=== PATIENT | male | born 1950 | race African-American/Black ===

== ENCOUNTER 2022-06-30 16:17 | Inpatient (IN) ==
--- NOTE | 2022-06-30 16:35 | Emergency Department Note ---
Impression & Plan Mesothelioma ADMIT ED Provider Note HPI: The patient is a 71-year-old gentleman with history of metastatic mesothelioma, on palliative immunotherapy, recent inpatient admission at [facility] for malignant pericardial effusion status post pericardiocentesis and drain removal, presents emergency department today from his nursing facility at [facility] at family request. Patient is a somewhat limited historian on arrival. He mentions he is having pain that he feels is going undertreated at his current facility. On arrival here to the ED, the patient is hemodynamically stable and afebrile. He does exhibit some mild increased work of breathing but he is saturating well on room air. ROS: - Per HPI *Outpatient medications and allergy history reviewed. *Pertinent external medical records reviewed. PE: General: Alert, frail-appearing HEENT: Normocephalic, trachea midline Eyes: Extraocular eye movement is intact, no scleral erythema Pulmonary: Coarse bilateral breath sounds with mild expiratory wheezing Cardio: Regular rate and rhythm GI: Abdomen is soft to palpation : No suprapubic tenderness MSK: No evidence of trauma or malformation of the extremities, no edema Skin: No evidence of rash Neuro: Alert, no focal deficits Psychiatric: Cooperative cafeteria monitor: (As interpreted by myself): - An order was placed for continuous cardiac monitoring - Patient was noted to be in sinus rhythm with a rate of 90 EKG: (As interpreted by myself): Rate: 93 Rhythm: Sinus rhythm Intervals: Within normal limits ST changes: No ST elevation Time: 1659 Interventions provided in ED: -DuoNeb breathing treatment, IV Lasix, IV morphine Differential Diagnosis: Pain and weakness secondary to metastatic mesothelioma, acute bacterial pneumonia, viral upper respiratory infection to include COVID and influenza A amongst other potential pathogens, pericardial effusion, CHF exacerbation, amongst other potential pathologies. Medical Decision Making: The patient is a very frail appearing 71-year-old gentleman who presented to the emergency department from his nursing facility over concern for generalized weakness and progressive decline. Patient's daughter later arrived at the bedside to provide further history, states that the patient was concerned that he was not getting his pain medications on time, states that he felt a penitentiary was "under staffed" he is also developed some worsening cough and shortness of breath. On arrival here to the ED the patient is hemodynamically stable, he does not appear to be in any acute physical distress on my initial assessment but he is frail appearing given his multiple comorbidities. IV was established and lab work obtained, patient was given IV morphine for his chronic pain. Chest x-ray shows evidence of congestive heart failure changes, patient is also noted to have consolidation in the right lung with layering pleural effusion. Patient was given IV Lasix in the ED, also given DuoNeb breathing treatment for his cough and mild increased work of breathing. He did not have any true hypoxia here in the ED but was placed on nasal cannula oxygen as he did have some desaturations to 90% at times on room air. On arrival here to the ED his blood pressure is stable, he is not tachycardic, low suspicion for cardiac tamponade currently as he does not have clinical evidence of this on my exam or with his vital signs. Patient's lab work shows baseline anemia, troponin is negative, COVID-19 testing did return positive. This is likely playing a role in the patient's cough and shortness of breath. I discussed the above findings with the patient's daughter at the bedside, she states she would not like him to return to [facility], given his issues today I feel he would benefit from medical admission and determination can be made about placement at a different facility following discharge. Patient's daughter is in agreement to this plan. Case was discussed with the on-call hospitalist for [facility], Dr. Dunbar, and patient was placed for admission in stable condition. Consultants: Hospitalist service, Dr. Dunbar Disposition discussion held by myself with: Patient and his daughter at the bedside Diagnosis: 1. Dyspnea, acute 2. Acute on chronic pain 3. Metastatic mesothelioma 4. Anemia, chronic 5. Congestive heart failure with elevated BNP, acute 6. COVID-19 infection, acute Disposition: Admission Jack Neff DO Emergency Medicine Past Med/Surg History Social History Smoking Status: Never smoker Preferred Language: Maltese Feels Safe at Home: Yes Allergies Allergies Allergy/AdvReac Type Severity Reaction Status Date / Time No Known Allergies Allergy Unverified 06/30/22 19:15 Home Meds Home Medications Medication Instructions Recorded Confirmed albuterol sulfate 90 mcg/actuation 2 puff inhalation 6XD PRN 06/30/22 06/30/22 aerosol inhaler (Ventolin HFA) Shortness Of Breath Or Wheezing cholecalciferol (vitamin D3) 125 125 mcg PO QAM 06/30/22 06/30/22 mcg (5,000 unit) capsule cyanocobalamin (vitamin B-12) 1,000 mcg PO QAM 06/30/22 06/30/22 1,000 mcg tablet folic acid 1 mg tablet 1 mg PO QAM 06/30/22 06/30/22 guaifenesin 600 mg tablet, 600 mg PO Q12H 06/30/22 06/30/22 extended release 12 hr lactulose 10 gram/15 mL oral 15 ml PO BID 06/30/22 06/30/22 solution levothyroxine 100 mcg tablet 100 mcg PO DAILYBB 06/30/22 06/30/22 mirtazapine 15 mg tablet 15 mg PO HS 06/30/22 06/30/22 multivitamin 1 tab PO QAM 06/30/22 06/30/22 naloxone 4 mg/actuation nasal spray 1 spray intranasal .UD PRN Opioid 06/30/22 06/30/22 Overdose ondansetron 8 mg disintegrating 8 mg PO Q8H PRN Nausea 06/30/22 06/30/22 tablet oxycodone 10 mg tablet 10 mg PO Q4H PRN Pain 06/30/22 06/30/22 polyethylene glycol 3350 17 17 g PO DAILY PRN Constipation 06/30/22 06/30/22 gram/dose oral powder sennosides 8.6 mg tablet 8.6 mg PO HS 06/30/22 06/30/22 sennosides 8.6 mg-docusate sodium 1 tab PO QAM 06/30/22 06/30/22 50 mg tablet (Senna with Docusate Sodium) tamsulosin 0.4 mg capsule 0.4 mg PO QAM 06/30/22 06/30/22 torsemide 10 mg tablet 10 mg PO QAM 06/30/22 06/30/22 Results & Data (ED) Vital Signs Vital Signs - 24 hr 06/30/22 16:17 06/30/22 16:35 06/30/22 16:35 Temperature 36.6 C Temperature Source Oral Pulse Rate 88 89 89 Pulse Rate [Apical] Pulse Rate from SpO2 Sensor Pulse Rhythm Regular Respiratory Rate 19 19 Respiratory Effort / Characteristics Non-Labored Respiratory Depth Normal Respiratory Pattern Regular Blood Pressure 103/82 Blood Pressure [Left Arm] Blood Pressure Mean 89 Blood Pressure Mean [Left Arm] Pulse Oximetry 93 93 Oxygen Delivery Method Room Air Room Air Oxygen Flow Rate Sepsis Recent Fever Within 48 Hours No Sepsis New/Unexplained Change in Mental Status N/A Sepsis Action Taken by Nursing No Action Required 06/30/22 17:16 06/30/22 17:30 06/30/22 18:00 Temperature Temperature Source Pulse Rate 83 82 84 Pulse Rate [Apical] Pulse Rate from SpO2 Sensor 84 81 82 Pulse Rhythm Respiratory Rate 22 20 19 Respiratory Effort / Characteristics Respiratory Depth Respiratory Pattern Blood Pressure 99/74 L 103/79 113/86 Blood Pressure [Left Arm] Blood Pressure Mean 82 87 95 Blood Pressure Mean [Left Arm] Pulse Oximetry 90 90 100 Oxygen Delivery Method Oxygen Flow Rate Sepsis Recent Fever Within 48 Hours Sepsis New/Unexplained Change in Mental Status Sepsis Action Taken by Nursing 06/30/22 18:30 06/30/22 19:30 06/30/22 20:38 Temperature Temperature Source Pulse Rate 88 88 Pulse Rate [Apical] 86 Pulse Rate from SpO2 Sensor Pulse Rhythm Respiratory Rate 21 15 Respiratory Effort / Characteristics Respiratory Depth Respiratory Pattern Blood Pressure 105/76 Blood Pressure [Left Arm] 96/70 L Blood Pressure Mean 85 Blood Pressure Mean [Left Arm] 78 Pulse Oximetry 100 Oxygen Delivery Method Nebulizer Oxygen Flow Rate 6 Sepsis Recent Fever Within 48 Hours Sepsis New/Unexplained Change in Mental Status Sepsis Action Taken by Nursing 06/30/22 21:00 Temperature Temperature Source Pulse Rate Pulse Rate [Apical] 86 Pulse Rate from SpO2 Sensor Pulse Rhythm Respiratory Rate 24 Respiratory Effort / Characteristics Respiratory Depth Respiratory Pattern Blood Pressure Blood Pressure [Left Arm] 101/79 Blood Pressure Mean Blood Pressure Mean [Left Arm] 86 Pulse Oximetry 98 Oxygen Delivery Method Nasal Cannula Oxygen Flow Rate 2 Sepsis Recent Fever Within 48 Hours Sepsis New/Unexplained Change in Mental Status Sepsis Action Taken by Nursing Laboratory Data 06/30/22 16:56 06/30/22 16:56 Lab Results 06/30/22 06/30/22 06/30/22 Range/Units 16:56 16:56 17:02 WBC 6.59 (4.8-10.8) K/ul RBC 3.41 L (4.70-6.10) M/uL Hgb 7.5 L (14.0-18.0) g/dl Hct 26.6 L (42.0-52.0) % MCV 78.0 L (80.0-100.0) fL MCH 22.0 L (25.0-34.0) pg MCHC 28.2 L (32.0-36.0) g/dL RDW Std Deviation 53.2 H (36.4-46.3) fL RDW Coeff of Julee 18.9 H (11.5-14.5) % Plt Count 137 (130-400) K/uL MPV 9.0 L (9.4-12.4) fL Immature Gran % (Auto) 1.1 % Neut % (Auto) 74.9 % Lymph % (Auto) 13.1 % Winn % (Auto) 9.7 % Eos % (Auto) 0.9 % Baso % (Auto) 0.3 % Neut # (Auto) 4.94 (1.40-6.50) K/uL Lymph # (Auto) 0.86 L (1.2-3.4) K/uL Winn # (Auto) 0.64 H (0.11-0.59) K/uL Eos # (Auto) 0.06 (0-0.50) K/uL Baso # (Auto) 0.02 (0-0.2) K/uL Immature Gran # (Auto) 0.07 (0.01-0.20) K/uL Hypochromasia Present Sodium 141 (136-145) mmol/L Potassium 5.1 (3.5-5.1) mmol/L Chloride 105 (98-107) mmol/L Carbon Dioxide 33 H (21-32) mmol/L Anion Gap 3 (3-11) BUN 19 (6-23) mg/dl Creatinine 1.12 (0.6-1.4) mg/dl Est Cr Clr Drug Dosing 71.0 ml/min Est GFR ( Amer) 76.7 ml/min Est GFR (Non-Af Amer) 66.2 ml/min BUN/Creatinine Ratio 17.0 (10-20) Glucose 82 (70-99(Fasting)) mg/dl Calcium 8.1 L (8.6-10.3) mg/dl Total Bilirubin 0.2 (0.2-1.0) mg/dl AST 10 L (13-39) U/L ALT 6 L (7-52) U/L Alkaline Phosphatase 82 (34-104) U/L Troponin I High Sens 8.3 (0-20) pg/ml B-Natriuretic Peptide (0-100) pg/ml Total Protein 5.7 L (6.0-8.3) gm/dl Albumin 2.3 L (3.4-5.0) gm/dl Globulin 3.4 (2.5-4.0) gm/dl Albumin/Globulin Ratio 0.7 L (0.9-2) Lipase 4 L (11-82) U/L SARS-CoV-2 (PCR) (Negative) Influenza Type A (PCR) (Neg) Influenza Type B (PCR) (Neg) RSV (RT-PCR) (Neg) SARS-CoV-2, RNA, NAAT NEGATIVE (NEGATIVE) 06/30/22 06/30/22 Range/Units 19:39 20:09 WBC (4.8-10.8) K/ul RBC (4.70-6.10) M/uL Hgb (14.0-18.0) g/dl Hct (42.0-52.0) % MCV (80.0-100.0) fL MCH (25.0-34.0) pg MCHC (32.0-36.0) g/dL RDW Std Deviation (36.4-46.3) fL RDW Coeff of Julee (11.5-14.5) % Plt Count (130-400) K/uL MPV (9.4-12.4) fL Immature Gran % (Auto) % Neut % (Auto) % Lymph % (Auto) % Winn % (Auto) % Eos % (Auto) % Baso % (Auto) % Neut # (Auto) (1.40-6.50) K/uL Lymph # (Auto) (1.2-3.4) K/uL Winn # (Auto) (0.11-0.59) K/uL Eos # (Auto) (0-0.50) K/uL Baso # (Auto) (0-0.2) K/uL Immature Gran # (Auto) (0.01-0.20) K/uL Hypochromasia Sodium (136-145) mmol/L Potassium (3.5-5.1) mmol/L Chloride (98-107) mmol/L Carbon Dioxide (21-32) mmol/L Anion Gap (3-11) BUN (6-23) mg/dl Creatinine (0.6-1.4) mg/dl Est Cr Clr Drug Dosing ml/min Est GFR ( Amer) ml/min Est GFR (Non-Af Amer) ml/min BUN/Creatinine Ratio (10-20) Glucose (70-99(Fasting)) mg/dl Calcium (8.6-10.3) mg/dl Total Bilirubin (0.2-1.0) mg/dl AST (13-39) U/L ALT (7-52) U/L Alkaline Phosphatase (34-104) U/L Troponin I High Sens (0-20) pg/ml B-Natriuretic Peptide 530 H (0-100) pg/ml Total Protein (6.0-8.3) gm/dl Albumin (3.4-5.0) gm/dl Globulin (2.5-4.0) gm/dl Albumin/Globulin Ratio (0.9-2) Lipase (11-82) U/L SARS-CoV-2 (PCR) POSITIVE A* (Negative) Influenza Type A (PCR) Negative (Neg) Influenza Type B (PCR) Negative (Neg) RSV (RT-PCR) Negative (Neg) SARS-CoV-2, RNA, NAAT (NEGATIVE) Administered Medications Discontinued Medications Albuterol (Albut/Ipratrop 3mg/0.5mg Neb 3 Ml Vial) 3 ml NEB NOW STA; Protocol Stop: 06/30/22 19:05 Last Admin: 06/30/22 19:09 Dose: 3 ml Documented By: MAUREEN Furosemide (Furosemide 40 Mg/4 Ml Vial) 40 mg IV ONE ONE Stop: 06/30/22 19:06 Last Admin: 06/30/22 19:13 Dose: 40 mg Documented By: MAUREEN Sodium Chloride (Nss) 500 mls @ 999 mls/hr IV .Q31M ONE Stop: 06/30/22 17:21 Last Infusion: 06/30/22 17:47 Dose: 0 mls/hr Documented By: Admin: 06/30/22 17:08 Dose: 999 mls/hr Documented By: GRICELDA Morphine Sulfate (Morphine Sulfate 4 Mg/Ml 1 Ml Carp\\Vial) 4 mg IV NOW STA Stop: 06/30/22 16:52 Last Admin: 06/30/22 17:08 Dose: 4 mg Documented By: GRICELDA Oxycodone HCl (Oxycodone Hcl Ir 5 Mg Tab (Immediate Release)) 5 mg PO NOW STA Stop: 06/30/22 20:50 Last Admin: 06/30/22 21:03 Dose: 5 mg Documented By: JADEW Imaging Data Radiologist's Impression: Chest X-Ray 06/30/22 16:35 SINGLE VIEW CHEST CLINICAL HISTORY: Atypical chest pain. FINDINGS: 2 AP, portable, upright chest radiographs are obtained. No prior studies are available for comparison at the time of dictation. The examination is degraded by portable technique and patient rotation. A right internal jugular central venous infusion port is in place. The heart appears enlarged but is partially obscured. There is pulmonary vascular congestion. There is a layering right pleural effusion which tracks to the right apex. Atelectasis/consolidation is seen throughout the right lung. A small pleural effusion is seen on the left. No pneumothorax is seen. The skeletal structures are osteopenic. The bony thorax is grossly intact. Advanced arthritic change is seen in the shoulders. IMPRESSION: 1. Cardiomegaly with evidence of congestive failure. 2. Large layering right pleural effusion which tracks to the apex. Atelectasis/consolidation is seen throughout the right lung. 3. A small pleural effusion is seen on the left ACT 112: Negative or not required by law. Electronically signed by: Shane Pena M.D. 06/30/2022 5:11 PM Discharge Plan Visit Data Chief Complaint: Illness Stated Complaint: FAMILY WANTED PT TAKEN TO HOSPITAL ED Provider: Jack Neff Discharge Problem: Mesothelioma Patient Disposition: Admitted As Inpatient Discharge Instructions Interventions: ED Discharge Assessment Last Done: 06/30/22 21:14 Forms Stand Alone Forms: [facility] Prescriptions Prescriptions: No Action cholecalciferol (vitamin D3) 125 mcg (5,000 unit) Capsule 125 mcg PO QAM folic acid 1 mg tablet 1 mg PO QAM levothyroxine 100 mcg Tablet 100 mcg PO DAILYBB mirtazapine 15 mg Tablet 15 mg PO HS multivitamin [Multiple Vitamin] Tablet 1 tab PO QAM sennosides-docusate sodium [Senna with Docusate Sodium] 8.6-50 mg Tablet 1 tab PO QAM sennosides 8.6 mg Tablet 8.6 mg PO HS tamsulosin 0.4 mg Capsule 0.4 mg PO QAM torsemide 10 mg Tablet 10 mg PO QAM cyanocobalamin (vitamin B-12) 1,000 mcg Tablet 1,000 mcg PO QAM guaifenesin 600 mg Tablet Extended Release 12hr 600 mg PO Q12H lactulose 10 gram/15 mL Solution 15 ml PO BID naloxone 4 mg/actuation Melissa,Non-Aerosol 1 spray INTRANASAL .UD PRN (Reason: Opioid Overdose) ondansetron 8 mg Tablet,Disintegrating 8 mg PO Q8H PRN (Reason: Nausea) oxycodone 10 mg Tablet 10 mg PO Q4H PRN (Reason: Pain) polyethylene glycol 3350 17 gram/dose Powder 17 g PO DAILY PRN (Reason: Constipation) albuterol sulfate [Ventolin HFA] 90 mcg/actuation Hfa Aerosol Inhaler 2 puff INHALATION 6XD PRN (Reason: Shortness Of Breath Or Wheezing) Referrals Referrals: Sandi Jon [Primary Care Provider] -
[2022-06-30] MEDS ORDERED: MoRPHine SULFATE 4 MG/ML 1 ML CARP\\VIAL IV STA (16:51)
[2022-06-30] MEDS ORDERED: SODIUM CHLORIDE 0.9% 500 ML IV ONE (16:51)
--- NOTE | 2022-06-30 17:12 | XRay Report ---
SINGLE VIEW CHEST CLINICAL HISTORY: Atypical chest pain. FINDINGS: 2 AP, portable, upright chest radiographs are obtained. No prior studies are available for comparison at the time of dictation. The examination is degraded by portable technique and patient ro tation. A right internal jugular central venous infusion port is in place. The heart appears enlarge d but is partially obscured. There is pulmonary vascular congestion. There is a layering right pleura l effusion which tracks to the right apex. Atelectasis/consolidation is seen throughout the right jenise g. A small pleural effusion is seen on the left. No pneumothorax is seen. The skeletal structures ar e osteopenic. The bony thorax is grossly intact. Advanced arthritic change is seen in the shoulders. IMPRESSION: 1. Cardiomegaly with evidence of congestive failure. 2. Large layering right pleural effusion which tracks to the apex. Atelectasis/consolidation is seen throughout the right lung. 3. A small pleural effusion is seen on the left ACT 112: Negative or not required by law. Electronically signed by: Shane Pena M.D. 06/30/2022 5:11 PM
[2022-06-30 17:36] LABS: Albumin Globulin Ratio 0.7 (0.9-2); Albumin Level 2.3 gm/dl (3.4-5.0); Bilirubin,Total 0.2 mg/dl (0.2-1.0); Calcium 8.1 mg/dl (8.6-10.3); Est GFR (African American) 76.7 ml/min; Est GFR (Non-African American) 66.2 ml/min; Globulin 3.4 gm/dl (2.5-4.0); Potassium 5.1 mmol/L (3.5-5.1); Total Protein 5.7 gm/dl (6.0-8.3)
[2022-06-30 17:38] LABS: Basophils # (auto) 0.02 K/uL (0-0.2); Basophils % (auto) 0.3 %; Eosinophils # (auto) 0.06 K/uL (0-0.50); Eosinophils % (auto) 0.9 %; Hematocrit (blood only) 26.6 % (42.0-52.0); Hemoglobin 7.5 g/dl (14.0-18.0); Hypochromasia Present; Immature Granulocytes # (auto) 0.07 K/uL (0.01-0.20); Immature Granulocytes % (auto) 1.1 %; Lymphocytes # (auto) 0.86 K/uL (1.2-3.4); Lymphocytes % (auto) 13.1 %; Mean Corpuscular Hgb Conc 28.2 g/dL (32.0-36.0); Monocytes # (auto) 0.64 K/uL (0.11-0.59); Monocytes % (auto) 9.7 %; Neutrophils # (auto) 4.94 K/uL (1.40-6.50); Neutrophils % (auto) 74.9 %; Platelet Count 137 K/uL (130-400); RDW Coefficient of Variation 18.9 % (11.5-14.5); RDW Standard Deviation 53.2 fL (36.4-46.3); Red Blood Count 3.41 M/uL (4.70-6.10); White Blood Count 6.59 K/ul (4.8-10.8)
[2022-06-30 17:43] LABS: Troponin I High Sensitivity 8.3 pg/ml (0-20)
[2022-06-30] MEDS ORDERED: ALBUT/IPRATROP 3MG/0.5MG NEB 3 ML VIAL NEB STA (19:04)
[2022-06-30] MEDS ORDERED: FUROSEMIDE 40 MG/4 ML VIAL IV ONE (19:05)
[2022-06-30 20:21] LABS: Influenza A virus by PCR Negative (Neg); Influenza B virus by PCR Negative (Neg); RSV by PCR Negative (Neg)
[2022-06-30 20:30] LABS: SARS CoV2 RNA(COVID-19) Ceph POSITIVE (Negative)
[2022-06-30] MEDS ORDERED: oxyCODONE HCL IR 5 MG TAB (IMMEDIATE RELEASE) PO STA (20:49)
[2022-06-30] MEDS ORDERED: ALBUTEROL HFA 8 GM INHALER INH PRN (21:49)
[2022-06-30] MEDS ORDERED: NALOXONE NASAL SPRAY 4 MG ER HOMEPACK PRN (21:49)
[2022-06-30] MEDS ORDERED: NITROGLYCERIN SL 0.4 MG/TAB TAB SL PRN (21:49)
[2022-06-30] MEDS ORDERED: ALBUT/IPRATROP 3MG/0.5MG NEB 3 ML VIAL NEB PRN (21:49)
[2022-06-30] MEDS ORDERED: POLYETHYLENE (MIRALAX) 17 GM PACK PO PRN ×2 (21:49)
[2022-06-30] MEDS ORDERED: PIPERACILLIN/TAZOBACTAM 4.5 GM (over 30 mins) IV ONE (22:30)
[2022-06-30] MEDS: guaiFENesin 600 MG TABCR PO SCH (22:50)
[2022-06-30] MEDS: MIRTAZAPINE TAB 15 MG TAB PO SCH (22:51)
[2022-06-30] MEDS: LACTULOSE SYRUP 10 GM/15 ML BTL 960 ML PO SCH (22:51)
[2022-06-30] MEDS: SENNA 8.6 MG TAB PO SCH (22:52)
[2022-06-30] MEDS: ENOXAPARIN INJ 40 MG/0.4 ML SYR SQ SCH (22:52)
--- NOTE | 2022-06-30 23:31 | CT Scan Report ---
Exam(s): CT CHEST Without Contrast EXAM: CT Chest Without Intravenous Contrast CLINICAL HISTORY: Reason for exam: pleural effusion, pericardial effusion, infiltrates. TECHNIQUE: Axial computed tomography images of the chest without intravenous contrast. CTDI is 28.61 mGy and DLP is 1075.84 mGy-cm. Automated exposure control was utilized for the study. A dose lowering technique was utilized adhering to the principles of ALARA. COMPARISON: Chest x-ray from June 30, 2022 FINDINGS: Lungs: There are multiple scattered pulmonary nodules in the left lung measuring up to 9 mm suggesting metastatic neoplasm. Pleural space: There is diffuse pleural thickening throughout the right hemithorax and consolidation of the right mid to lower lung. There is interstitial infiltrate throughout the remaining right upper lung. Consider neoplasm. There is a small to moderate left pleural effusion layering 5 cm dependently mild adjacent left basilar atelectasis. No pneumothorax. Heart: The heart is mildly enlarged. There is a trace pericardial effusion. No significant coronary artery calcifications. Bones/joints: Moderate degenerative changes in both shoulders. Moderate multilevel degenerative changes are seen throughout the spine. No acute fracture or destructive bone lesion is identified. No dislocation. Soft tissues: There is diffuse anasarca over the torso. Vasculature: The thoracic aorta is mildly calcified but nondilated. This is a noncontrast study. Lymph nodes: Unremarkable. No enlarged lymph nodes. Tubes, lines and devices: There is a Port-A-Cath on the right with the line running to the superior vena cava. IMPRESSION: 1. There is diffuse pleural thickening throughout the right hemithorax and consolidation of the right mid to lower lung. There is interstitial infiltrate throughout the remaining right upper lung. Consider neoplasm. 2. There are multiple scattered pulmonary nodules in the left lung measuring up to 9 mm suggesting metastatic neoplasm. 3. There is a small to moderate left pleural effusion layering 5 cm dependently mild adjacent left basilar atelectasis. 4. Mild cardiomegaly and diffuse anasarca. Some component of CHF is suspected. Electronically signed by: Alex Jimenez MD 06/30/22 23:30 PM
[2022-06-30] MEDS: DOXYCYCLINE HYCLATE 100 MG in DEXTROSE 5% 100 ML IV SCH (23:59)
[2022-07-01] MEDS: PIPERACILLIN/TAZOBACTAM 4.5 GM in DEXTROSE 5% 100 ML IV SCH ×3 (05:13→20:42)
[2022-07-01] MEDS: LEVOTHYROXINE SODIUM 100 MCG TABLET PO SCH (05:39)
[2022-07-01 06:12] LABS: Hematocrit (blood only) 24.4 % (42.0-52.0); Hemoglobin 6.7 g/dl (14.0-18.0); Mean Corpuscular Hemoglobin 21.9 pg (25.0-34.0); Mean Corpuscular Hgb Conc 27.5 g/dL (32.0-36.0); Mean Corpuscular Volume 79.7 fL (80.0-100.0); Mean Platelet Volume 9.4 fL (9.4-12.4); Platelet Count 128 K/uL (130-400); RDW Coefficient of Variation 18.9 % (11.5-14.5); RDW Standard Deviation 55.1 fL (36.4-46.3); Red Blood Count 3.06 M/uL (4.70-6.10); White Blood Count 5.56 K/ul (4.8-10.8)
[2022-07-01 06:22] LABS: BUN Creatinine Ratio 17.2 (10-20); Calcium 7.6 mg/dl (8.6-10.3); Creatinine Clr Calc Pharmacy 68.6 ml/min; Est GFR (African American) 73.5 ml/min; Est GFR (Non-African American) 63.5 ml/min; Magnesium 1.7 mg/dl (1.7-2.4); Potassium 4.5 mmol/L (3.5-5.1)
[2022-07-01 06:38] LABS: Thyroid Stimulating Hormone 19.384 uIu/ml (0.300-4.500)
[2022-07-01 06:48] LABS: Hematocrit (blood only) 25.2 % (42.0-52.0); Hemoglobin 7.1 g/dl (14.0-18.0)
[2022-07-01 06:49] LABS: Basophils # (auto) 0.02 K/uL (0-0.2); Basophils % (auto) 0.4 %; Eosinophils # (auto) 0.08 K/uL (0-0.50); Eosinophils % (auto) 1.4 %; Hypochromasia Present; Immature Granulocytes # (auto) 0.07 K/uL (0.01-0.20); Immature Granulocytes % (auto) 1.3 %; Lymphocytes # (auto) 0.79 K/uL (1.2-3.4); Lymphocytes % (auto) 14.2 %; Monocytes # (auto) 0.51 K/uL (0.11-0.59); Monocytes % (auto) 9.2 %; Neutrophils # (auto) 4.09 K/uL (1.40-6.50); Neutrophils % (auto) 73.5 %
[2022-07-01] MEDS: ALBUT/IPRATROP 3MG/0.5MG NEB 3 ML VIAL NEB SCH ×4 (07:04→19:18)
[2022-07-01 07:13] LABS: T4 Free Thyroxine 0.75 ng/dl (0.61-1.60)
[2022-07-01 07:39] LABS: Base Excess ABG 5.6 mEq/L (-9-1.8); HCO3 ABG 33 mmol/L (19-24); Oxygen Saturation ABG 94.6 % (90-95); PCO2 ABG 65 mmHg (35-46); PO2 ABG 61 mmHg (80-95); pH ABG 7.31 (7.35-7.45)
[2022-07-01 07:40] LABS: Allen Test Pos (Pos)
--- NOTE | 2022-07-01 08:32 | Pulmonary Consultation ---
Date of Consultation July 01, 2022 Assessment & Plan (1) Mesothelioma: (2) Failure to thrive in adult: (3) Anemia: (4) Acute hypercapnic respiratory failure: Plan Impression: 71-year-old male with reported history of metastatic mesothelioma. Again I have no records available to substantiate this but his CT scan does appear consistent with this diagnosis. It is unclear why he was actually brought to the emergency room and admitted here. Apparently according to the bedside nurse, the family was unhappy with the care that he was receiving and wanted him admitted to the facility to work on placement at an alternative institution. His CT scan shows diffuse pleural thickening. He is not having respiratory distress or compromise and there is no indication for thoracentesis currently. Recommendations: 1. Pleural effusion: The effusion on the left is small. The only indication for repeat sampling would be for palliative/symptom control. As the patient is asymptomatic, there is no indication for repeat pleural procedures currently. 2. Advanced mesothelioma. Again we do not have any records available on this patient. As his auto service writer and oncologist are at [place], consideration for transfer to [facility] where he would be closer to his establish care team may be appropriate and is deferred to the patient's primary care provider. Reportedly he is receiving "palliative chemotherapy". I am unclear what this entails and the patient is unable to offer any details as to what therapy he is receiving currently. This is a uniformly fatal disease with life expectancy even with chemotherapy less than 24 months. 3. I attempted to discuss advanced directives with the patient but he does not appear to be in an appropriate state of mind to be able to have the discussion. I would strongly discourage ACLS CPR intubation or mechanical ventilation in this patient as it will not alter his cancer prognosis. Strongly recommend palliative care consultation. Family should be included in end-of-life discussions. 4. Hypercarbic respiratory failure: Secondary to restriction due to the lung encasement from tumor. Again this is not reversible. I do not think noninvasive positive pressure ventilation has a role in this patient and again would strongly recommend defining goals of therapy. 5. Would recommend continued symptom management. 6. The patient's been started on antibiotics. Given his extensive lung disease, his imaging studies make it impossible to evaluate for infection. Recommend sputum culture, procalcitonin, and clinical follow-up. If cultures have been obtained previously, these may be helpful. 7. COVID positive test on admission. Again the patient's imaging studies are impossible to interpret with regards to infection. He is not hypoxemic so would not recommend remdesivir, dexamethasone, or other adjuvant therapies. Continue supportive care. If the patient is to remain in our system, would strongly encourage getting copies of the patient's medical records scanned into our system. Unfortunately, I think I have little to offer this patient at this point in time other than recommendations for palliative care History of Present Illness Attending Physician: Aaron Judd MD History of Present Illness Asked by hospitalist to evaluate this patient with mesothelioma. History is obtained from review of the electronic medical record which is very limited as there is no H&P in the system. He has not been seen in our system and we do not have any prior clinical notes. The patient is confused and cannot really tell me why he is here. Patient is a 71-year-old male with a history of diffuse metastatic mesothelioma who is on palliative therapy status post recent stay at [place] for pericardiocentesis given malignant effusion. He been at [facility] and apparently family requested that he come to the hospital. According to the ER notes, the patient was complaining of pain which was inadequately addressed at his outside facility. He had a CT scan which was grossly abnormal consistent with the patient's history of metastatic mesothelioma. He was also found to be positive for COVID. Pulmonary was consulted for additional evaluation management. Patient does have a coarse cough which is chronic for him. He is not producing any phlegm. He denies fevers chills or night sweats. History from the patient is severely limited. Patient relates that his auto service writer and oncologist are [place]. He is never been seen in the [facility] system previously. It is unclear why he was brought here. All of his care has been performed through [facility] Allergies Allergy/AdvReac Type Severity Reaction Status Date / Time No Known Allergies Allergy Unverified 06/30/22 19:15 Home Medications Medication Instructions Recorded Confirmed Type albuterol sulfate 90 mcg/actuation 2 puff inhalation 6XD PRN 06/30/22 06/30/22 History aerosol inhaler (Ventolin HFA) Shortness Of Breath Or Wheezing cholecalciferol (vitamin D3) 125 125 mcg PO QAM 06/30/22 06/30/22 History mcg (5,000 unit) capsule cyanocobalamin (vitamin B-12) 1,000 mcg PO QAM 06/30/22 06/30/22 History 1,000 mcg tablet folic acid 1 mg tablet 1 mg PO QAM 06/30/22 06/30/22 History guaifenesin 600 mg tablet, 600 mg PO Q12H 06/30/22 06/30/22 History extended release 12 hr lactulose 10 gram/15 mL oral 15 ml PO BID 06/30/22 06/30/22 History solution levothyroxine 100 mcg tablet 100 mcg PO DAILYBB 06/30/22 06/30/22 History mirtazapine 15 mg tablet 15 mg PO HS 06/30/22 06/30/22 History multivitamin 1 tab PO QAM 06/30/22 06/30/22 History naloxone 4 mg/actuation nasal spray 1 spray intranasal .UD PRN Opioid 06/30/22 06/30/22 History Overdose ondansetron 8 mg disintegrating 8 mg PO Q8H PRN Nausea 06/30/22 06/30/22 History tablet oxycodone 10 mg tablet 10 mg PO Q4H PRN Pain 06/30/22 06/30/22 History polyethylene glycol 3350 17 17 g PO DAILY PRN Constipation 06/30/22 06/30/22 History gram/dose oral powder sennosides 8.6 mg tablet 8.6 mg PO HS 06/30/22 06/30/22 History sennosides 8.6 mg-docusate sodium 1 tab PO QAM 06/30/22 06/30/22 History 50 mg tablet (Senna with Docusate Sodium) tamsulosin 0.4 mg capsule 0.4 mg PO QAM 06/30/22 06/30/22 History torsemide 10 mg tablet 10 mg PO QAM 06/30/22 06/30/22 History Patient History Social History Smoking Status: Never smoker Hx Alcohol Use: No Hx Substance Use: No Preferred Language: Portuguese Communication Ability: Effective Vp Training Required: No Beliefs That Will Affect Care: None Current Living Situation: Personal Care Facility Feels Safe at Home: Yes Safety Concerns: Feels Safe At This Time Assistive Devices: Cane, Oxygen - Continuous and Walker Review of Systems Review of Systems: Other Unreliable from the patient. Please refer to the ER notes Physical Exam Constitutional: + frail appearing; + not well nourished and no acute distress Neck: trachea midline, no thyromegaly Respiratory: no respiratory distress, no labored breathing and not tachypneic Auscultation: + rhonchi Cardiovascular: RRR, no murmur, no edema Gastrointestinal (Abdomen): normal bowel sounds, soft, nontender, no hepatosplenomegaly Musculoskeletal: Extremities: extremities normal to inspection Skin: no rashes, warm and dry Neurologic: Nonfocal exam Lymphatic: no cervical lymphadenopathy Results & Data Results & Data Vital Signs (Past 12 Hours) Vital Signs Temp Pulse Pulse Resp BP BP Pulse Ox 07/01/22 08:00 07/01/22 08:00 07/01/22 07:43 36.3 C L 88 20 118/76 90 07/01/22 07:00 76 07/01/22 07:04 79 20 98 07/01/22 03:23 36.2 C L 85 20 103/63 94 06/30/22 23:55 88 06/30/22 23:00 36.6 C 84 18 91/57 L 100 06/30/22 21:54 06/30/22 21:46 36.4 C L 87 22 110/80 94 06/30/22 21:00 86 24 101/79 98 06/30/22 20:38 88 Pulse Ox O2 Del Method O2 Del Method O2 Flow Rate O2 Flow Rate 07/01/22 08:00 Nasal Cannula 2 07/01/22 08:00 95 Nasal Cannula 2 07/01/22 07:43 Room Air 07/01/22 07:00 07/01/22 07:04 Nasal Cannula 2 07/01/22 03:23 Nasal Cannula 2 06/30/22 23:55 06/30/22 23:00 Nasal Cannula 2 06/30/22 21:54 Nasal Cannula 2 06/30/22 21:46 Nasal Cannula 2 06/30/22 21:00 Nasal Cannula 2 06/30/22 20:38 Critical Care Results & Data Vital Signs (Past 12 Hours) Vital Signs Temp Pulse Pulse Resp BP BP Pulse Ox 07/01/22 08:00 07/01/22 08:00 07/01/22 07:43 36.3 C L 88 20 118/76 90 07/01/22 07:00 76 04/30/23 07:04 79 20 98 07/01/22 03:23 36.2 C L 85 20 103/63 94 06/30/22 23:55 88 06/30/22 23:00 36.6 C 84 18 91/57 L 100 06/30/22 21:54 06/30/22 21:46 36.4 C L 87 22 110/80 94 06/30/22 21:00 86 24 101/79 98 06/30/22 20:38 88 Pulse Ox O2 Del Method O2 Del Method O2 Flow Rate O2 Flow Rate 07/01/22 08:00 Nasal Cannula 2 07/01/22 08:00 95 Nasal Cannula 2 07/01/22 07:43 Room Air 07/01/22 07:00 07/01/22 07:04 Nasal Cannula 2 07/01/22 03:23 Nasal Cannula 2 06/30/22 23:55 06/30/22 23:00 Nasal Cannula 2 06/30/22 21:54 Nasal Cannula 2 06/30/22 21:46 Nasal Cannula 2 06/30/22 21:00 Nasal Cannula 2 06/30/22 20:38 Lab & Micro Results (Past 24 Hours) RBC 3.06 M/uL (4.70-6.10) L 07/01/22 WBC 5.56 K/ul (4.8-10.8) 07/01/22 Hgb 7.1 g/dl (14.0-18.0) L 07/01/22 Hct 25.2 % (42.0-52.0) L 07/01/22 MCV 79.7 fL (80.0-100.0) L 07/01/22 MCH 21.9 pg (25.0-34.0) L 07/01/22 MCHC 27.5 g/dL (32.0-36.0) L 07/01/22 RDW Standard Deviation 55.1 fL (36.4-46.3) H 07/01/22 RDW Coefficient of Variation 18.9 % (11.5-14.5) H 07/01/22 Plt Count 128 K/uL (130-400) L 07/01/22 MPV 9.4 fL (9.4-12.4) 07/01/22 Neutrophils (%) (Auto) 73.5 % 07/01/22 Lymphocytes (%) (Auto) 14.2 % 07/01/22 Monocytes # (Auto) 0.51 K/uL (0.11-0.59) 07/01/22 Eosinophils # (Auto) 0.08 K/uL (0-0.50) 07/01/22 Immature Granulocyte % (Auto) 1.3 % 07/01/22 Neutrophils # (Auto) 4.09 K/uL (1.40-6.50) 07/01/22 Lymphocytes # (Auto) 0.79 K/uL (1.2-3.4) L 07/01/22 Monocytes # (Auto) 0.51 K/uL (0.11-0.59) 07/01/22 Eosinophils # (Auto) 0.08 K/uL (0-0.50) 07/01/22 Basophils # (Auto) 0.02 K/uL (0-0.2) 07/01/22 Immature Granulocyte # (Auto) 0.07 K/uL (0.01-0.20) 3 Hypochromasia Present 07/01/22 Na 139 mmol/L (136-145) 07/01/22 K 4.5 mmol/L (3.5-5.1) 07/01/22 Cl 104 mmol/L (98-107) 07/01/22 CO2 32 mmol/L (21-32) 07/01/22 Anion Gap 3 (3-11) 07/01/22 BUN 20 mg/dl (6-23) 07/01/22 Creatinine 1.16 mg/dl (0.6-1.4) 07/01/22 Estimated GFR ( Amer) 73.5 ml/min 07/01/22 Estimated GFR (Non-Af Amer) 63.5 ml/min 07/01/22 BUN/Creatinine Ratio 17.2 (10-20) 07/01/22 Glu 80 mg/dl (70-99(Fasting)) 07/01/22 Ca 7.6 mg/dl (8.6-10.3) L 07/01/22 Total Bilirubin 0.2 mg/dl (0.2-1.0) 06/30/22 AST 10 U/L (13-39) L 06/30/22 ALT 6 U/L (7-52) L 06/30/22 Alkaline Phosphatase 82 U/L (34-104) 06/30/22 TP 5.7 gm/dl (6.0-8.3) L 06/30/22 Albumin 2.3 gm/dl (3.4-5.0) L 06/30/22 Globulin 3.4 gm/dl (2.5-4.0) 06/30/22 Albumin/Globulin Ratio 0.7 (0.9-2) L 06/30/22 Mg 1.7 mg/dl (1.7-2.4) 07/01/22 05:30 Calcium Level 7.6 mg/dl (8.6-10.3) L 07/01/22 05:30 Arterial Blood pH 7.31 (7.35-7.45) L 07/01/22 07:31 Arterial Blood Partial Pressure CO2 65 mmHg (35-46) H 07/01/22 07:31 Arterial Blood Partial Pressure O2 61 mmHg (80-95) L 07/01/22 0 7:31 Arterial Blood HCO3 33 mmol/L (19-24) H 07/01/22 07:31 Arterial Blood Base Excess 5.6 mEq/L (-9-1.8) H 07/01/22 07:31 Arterial Blood Oxygen Saturation 94.6 % (90-95) 07/01/22 07:31 Blood Gas Oxygen Given RA 07/01/22 07:31 Caesar Test Pos (Pos) 07/01/22 07:31 Diagnostic Findings (Past 24 Hours) Chest X-Ray 06/30/22 16:35 SINGLE VIEW CHEST CLINICAL HISTORY: Atypical chest pain. FINDINGS: 2 AP, portable, upright chest radiographs are obtained. No prior studies are available for comparison at the time of dictation. The examination is degraded by portable technique and patient rotation. A right internal jugular central venous infusion port is in place. The heart appears enlarged but is partially obscured. There is pulmonary vascular congestion. There is a layering right pleural effusion which tracks to the right apex. Atelectasis/consolidation is seen throughout the right lung. A small pleural effusion is seen on the left. No pneumothorax is seen. The skeletal structures are osteopenic. The bony thorax is grossly intact. Advanced arthritic change is seen in the shoulders. IMPRESSION: 1. Cardiomegaly with evidence of congestive failure. 2. Large layering right pleural effusion which tracks to the apex. Atelectasis/consolidation is seen throughout the right lung. 3. A small pleural effusion is seen on the left ACT 112: Negative or not required by law. Electronically signed by: Shane Pena M.D. 06/30/2022 5:[address] 06/30/22 21:49 Exam(s): CT CHEST Without Contrast EXAM: CT Chest Without Intravenous Contrast CLINICAL HISTORY: Reason for exam: pleural effusion, pericardial effusion, infiltrates. TECHNIQUE: Axial computed tomography images of the chest without intravenous contrast. CTDI is 28.61 mGy and DLP is 1075.84 mGy-cm. Automated exposure control was utilized for the study. A dose lowering technique was utilized adhering to the principles of ALARA. COMPARISON: Chest x-ray from June 30, 2022 FINDINGS: Lungs: There are multiple scattered pulmonary nodules in the left lung measuring up to 9 mm suggesting metastatic neoplasm. Pleural space: There is diffuse pleural thickening throughout the right hemithorax and consolidation of the right mid to lower lung. There is interstitial infiltrate throughout the remaining right upper lung. Consider neoplasm. There is a small to moderate left pleural effusion layering 5 cm dependently mild adjacent left basilar atelectasis. No pneumothorax. Heart: The heart is mildly enlarged. There is a trace pericardial effusion. No significant coronary artery calcifications. Bones/joints: Moderate degenerative changes in both shoulders. Moderate multilevel degenerative changes are seen throughout the spine. No acute fracture or destructive bone lesion is identified. No dislocation. Soft tissues: There is diffuse anasarca over the torso. Vasculature: The thoracic aorta is mildly calcified but nondilated. This is a noncontrast study. Lymph nodes: Unremarkable. No enlarged lymph nodes. Tubes, lines and devices: There is a Port-A-Cath on the right with the line running to the superior vena cava. IMPRESSION: 1. There is diffuse pleural thickening throughout the right hemithorax and consolidation of the right mid to lower lung. There is interstitial infiltrate throughout the remaining right upper lung. Consider neoplasm. 2. There are multiple scattered pulmonary nodules in the left lung measuring up to 9 mm suggesting metastatic neoplasm. 3. There is a small to moderate left pleural effusion layering 5 cm dependently mild adjacent left basilar atelectasis. 4. Mild cardiomegaly and diffuse anasarca. Some component of CHF is suspected. Electronically signed by: Alex Jimenez MD 06/30/22 23:30 PM I & O Totals 24 Hours 06/30/22 07/01/22 07/02/22 06:59 06:59 06:59 Intake Total 730 / 730 Output Total 225 / 225 Balance 505 / 505 Cumulative 06/30/22 16:00 thru 07/01/22 06:00 Intake Total 730 Output Total 225 Balance 505 RT Ventilator Mngmt (Last Documented) Ventilator Ordered Settings Respiratory Rate 20 07/01/22 07:43 Ventilator - PT Measurements Respiratory Rate 20 PG Care Time/CCT Total # of Minutes Spent Total Time Spent with Patient: Total time spent is greater than 50% in coordination of care (as documented) at patient's floor/unit and/or counseling patient: Coding Level of Care Code 16625 INT INP/OBS CARE 75MIN Diagnoses Mesothelioma C45.9 Failure to thrive in adult R62.7 Anemia D64.9 Acute hypercapnic respiratory failure J96.02
[2022-07-01] MEDS: FUROSEMIDE 40 MG/4 ML VIAL IV SCH (09:33)
[2022-07-01] MEDS: MULTIVITAMIN TAB PO SCH (09:34)
[2022-07-01] MEDS: CYANOCOBALAMIN (B-12) 500 MCG TABLET PO SCH (09:34)
[2022-07-01] MEDS: TAMSULOSIN HCL 0.4 MG CAP PO SCH (09:34)
[2022-07-01] MEDS: CHOLECALCIFEROL 5,000 UNITS 125 MCG TAB PO SCH (09:34)
[2022-07-01] MEDS: guaiFENesin 600 MG TABCR PO SCH ×2 (09:34→20:44)
[2022-07-01] MEDS: FOLIC ACID 1 MG TAB PO SCH (09:34)
[2022-07-01] MEDS: DOCUSATE SODIUM/SENNA 50/8.6MG TAB PO SCH (09:34)
[2022-07-01] MEDS: LACTULOSE SYRUP 10 GM/15 ML BTL 960 ML PO SCH ×2 (09:35→20:45)
--- NOTE | 2022-07-01 10:37 | Cardiology Consultation ---
Date of Consultation July 01, 2022 Assessment & Plan (1) Mesothelioma: (2) Acute hypercapnic respiratory failure: - As noted, patient underwent recent pericardiocentesis on 06/07/2022 of the malignant pericardial effusion, with cytology of pericardial fluid consistent with malignant mesothelioma. He likely has bilateral malignant pleural effusions. -Clinically, is difficult to determine if there is a component of volume overload causing him shortness of breath, as his CT chest is markedly abnormal. I think it is reasonable to utilize IV furosemide to try to keep his intake and output at least even while he is on IV antibiotics. -Hemoglobin of 7.1 noted. -Patient had a run of wide-complex tachycardia consistent with nonsustained ventricular tachycardia observed on telemetry at 11:14 AM. Per review of his chart, treatment with a beta-jolene had previously been discontinued dating back to February, due to hypotension, and I do not think it would be soto to resume such medication at this point. The arrhythmia is likely another marker of his poor prognosis. -Unfortunately, palliative care would appear to be the appropriate next step. -Case discussed with Dr. Judd for the purpose of coordination of care. -55 minutes were spent on direct patient care with regards to reviewing previous records, performing a history and physical exam, discussing test results and treatment options with patient, formulating this note, and discussing the case with Dr Judd. History of Present Illness Attending Physician: Aaron Judd MD History of Present Illness Calvin Mayfield is 71 year old male seen in cardiology consultation per the request of Dr Dunbar for the evaluation of congestive heart failure and pericardial disease. Patient apparently presented to the emergency department due to concerns of uncontrolled pain as well as cough and shortness of breath. At the time of my interview with the patient, a coarse cough was noted. He denied other concerns. Per review of his [facility] chart he has a history of metastatic mesothelioma with multiple pulmonary nodules, hepatic metastasis, and peritoneal carcinomatosis. He had a documented positive COVID test on 05/21/2022. He recently presented to [facility] emergency department on 06/06/2022 having had a fall. He was hypotensive with systolic blood pressure in the 70s. He had undergone CT scan for trauma work-up at that time revealing an ongoing pleural effusion and findings of the pericardial effusion. He was transferred to [facility] was felt to have a mixed hypovolemic and cardiogenic shock picture and underwent pericardiocentesis on 06/07/2022 with 420 mL of serosanguineous fluid removed by Dr Orosco of interventional cardiology. Cytology of the pericardial fluid was suggestive of a malignant pericardial effusion with atypical mesothelial cells observed. The pericardial drain was subsequently removed on 06/12/2022 at which time a repeat echocardiogram had revealed no residual pericardial fluid. He had been seen by oncology as well as palliative medicine during his stay at [facility]. Per review of notes he received ipilimumab/nivolumab 1 cycle 1 on 05/01 and had further treatment postponed due to COVID PNA . He was transferred to the [facility] of 06/19/22 with planned follow up with Oncology, Palliative care, cardiology, and urology as he was discharged with an indwelling Bailey catheter. Allergies Allergy/AdvReac Type Severity Reaction Status Date / Time No Known Allergies Allergy Unverified 06/30/22 19:15 Home Medications Medication Instructions Recorded Confirmed Type albuterol sulfate 90 mcg/actuation 2 puff inhalation 6XD PRN 06/30/22 06/30/22 History aerosol inhaler (Ventolin HFA) Shortness Of Breath Or Wheezing cholecalciferol (vitamin D3) 125 125 mcg PO QAM 06/30/22 06/30/22 History mcg (5,000 unit) capsule cyanocobalamin (vitamin B-12) 1,000 mcg PO QAM 06/30/22 06/30/22 History 1,000 mcg tablet folic acid 1 mg tablet 1 mg PO QAM 06/30/22 06/30/22 History guaifenesin 600 mg tablet, 600 mg PO Q12H 06/30/22 06/30/22 History extended release 12 hr lactulose 10 gram/15 mL oral 15 ml PO BID 06/30/22 06/30/22 History solution levothyroxine 100 mcg tablet 100 mcg PO DAILYBB 06/30/22 06/30/22 History mirtazapine 15 mg tablet 15 mg PO HS 06/30/22 06/30/22 History multivitamin 1 tab PO QAM 06/30/22 06/30/22 History naloxone 4 mg/actuation nasal spray 1 spray intranasal .UD PRN Opioid 06/30/22 06/30/22 History Overdose ondansetron 8 mg disintegrating 8 mg PO Q8H PRN Nausea 06/30/22 06/30/22 History tablet oxycodone 10 mg tablet 10 mg PO Q4H PRN Pain 06/30/22 06/30/22 History polyethylene glycol 3350 17 17 g PO DAILY PRN Constipation 06/30/22 06/30/22 History gram/dose oral powder sennosides 8.6 mg tablet 8.6 mg PO HS 06/30/22 06/30/22 History sennosides 8.6 mg-docusate sodium 1 tab PO QAM 06/30/22 06/30/22 History 50 mg tablet (Senna with Docusate Sodium) tamsulosin 0.4 mg capsule 0.4 mg PO QAM 06/30/22 06/30/22 History torsemide 10 mg tablet 10 mg PO QAM 06/30/22 06/30/22 History Patient History Social History Smoking Status: Never smoker Hx Alcohol Use: No Hx Substance Use: No Preferred Language: Djiboutian Communication Ability: Effective [employer] Firer/Fireman Required: No Beliefs That Will Affect Care: None Current Living Situation: Personal Care Facility Feels Safe at Home: Yes Safety Concerns: Feels Safe At This Time Assistive Devices: Glasses and Walker Review of Systems Review of Systems: All systems reviewed & are unremarkable except as noted in HPI & below Physical Exam Constitutional: + ill appearing Respiratory: Auscultation: + diminished lung sounds Cardiovascular: RRR, no murmur, no edema Gastrointestinal (Abdomen): normal bowel sounds, soft, nontender, no hepatosplenomegaly Neurologic: PERRL, EOMI, accommodation nl, no face palsy, no dysarthria Results & Data Vital Signs (Past 12 Hours) Vital Signs Temp Pulse Pulse Resp BP Pulse Ox Pulse Ox 07/01/22 08:00 07/01/22 08:00 95 07/01/22 07:43 36.3 C L 88 20 118/76 90 07/01/22 07:00 76 07/01/22 07:04 79 20 98 07/01/22 03:23 36.2 C L 85 20 103/63 94 06/30/22 23:55 88 06/30/22 23:00 36.6 C 84 18 91/57 L 100 O2 Del Method O2 Del Method O2 Flow Rate O2 Flow Rate 04/30/23 08:00 Nasal Cannula 2 07/01/22 08:00 Nasal Cannula 2 07/01/22 07:43 Room Air 07/01/22 07:00 07/01/22 07:04 Nasal Cannula 2 07/01/22 03:23 Nasal Cannula 2 06/30/22 23:55 06/30/22 23:00 Nasal Cannula 2 Laboratory Results Cardiac Enzymes 06/30/22 06/30/22 07/01/22 Range/Units 16:56 20:09 05:30 AST 10 L (13-39) U/L Troponin I High Sens 8.3 7.1 (0-20) pg/ml B-Natriuretic Peptide 530 H (0-100) pg/ml 07/01/22 Range/Units 10:50 AST (13-39) U/L Troponin I High Sens 7.2 (0-20) pg/ml B-Natriuretic Peptide (0-100) pg/ml Coagulation 06/30/22 Range/Units 20:09 B-Natriuretic Peptide 530 H (0-100) pg/ml CBC 06/30/22 07/01/22 07/01/22 Range/Units 16:56 05:30 06:28 WBC 6.59 5.56 (4.8-10.8) K/ul RBC 3.41 L 3.06 L (4.70-6.10) M/uL Hgb 7.5 L 6.7 L* 7.1 L (14.0-18.0) g/dl Hct 26.6 L 24.4 L 25.2 L (42.0-52.0) % Plt Count 137 128 L (130-400) K/uL Neut # (Auto) 4.94 4.09 (1.40-6.50) K/uL Lymph # (Auto) 0.86 L 0.79 L (1.2-3.4) K/uL Isabela # (Auto) 0.64 H 0.51 (0.11-0.59) K/uL Eos # (Auto) 0.06 0.08 (0-0.50) K/uL Baso # (Auto) 0.02 0.02 (0-0.2) K/uL Comprehensive Metabolic Panel 06/30/22 07/01/22 Range/Units 16:56 05:30 Sodium 141 139 (136-145) mmol/L Potassium 5.1 4.5 (3.5-5.1) mmol/L Chloride 105 104 (98-107) mmol/L Carbon Dioxide 33 H 32 (21-32) mmol/L BUN 19 20 (6-23) mg/dl Creatinine 1.12 1.16 (0.6-1.4) mg/dl Glucose 82 80 (70-99(Fasting)) mg/dl Calcium 8.1 L 7.6 L (8.6-10.3) mg/dl AST 10 L (13-39) U/L ALT 6 L (7-52) U/L Alkaline Phosphatase 82 (34-104) U/L Total Protein 5.7 L (6.0-8.3) gm/dl Albumin 2.3 L (3.4-5.0) gm/dl Intake and Output 06/30/22 07/01/22 07/01/22 22:59 06:59 14:59 Intake Total 500 / 730 230 / 730 120 / 120 Output Total 225 / 225 Balance 500 / 505 5 / 505 120 / 120 Intake: IV 500 / 730 230 / 730 120 / 120 Doxycycline Hyclate 100 mg In 110 / 110 Dextrose 5% 100 ml @ 50 mls/hr IV Q12H [facility] Rx#:[id number] Piperacillin/Tazobactam 4.5 gm 120 / 120 120 / 120 In Dextrose 5% 100 ml @ 30 mls/ hr IV Q8H [facility] Rx#:[id number] Sodium Chloride 0.9% 500 ml @ 500 / 500 999 mls/hr IV .Q31M ONE Rx#: [id number] Oral 0 / 0 Output: Urine 225 / 225 Other: Weight 94.1 kg 95.028 kg Weight Measurement [facility] Diagnostic Findings Echocardiogram performed today 07/02/2027 at [facility] and interpreted independently: Mild concentric left ventricular hypertrophy is present No left ventricular wall motion abnormality noted, with hyperdynamic left ventricular systolic function, LVEF greater than 70%. Grade 1 diastolic dysfunction is noted No significant valvular disease. Aortic root is moderately larger diameter 4.7 cm A small circumferential pericardial effusion is present. There is no echocardiographic evidence of tamponade. A moderate size left pleural effusion is noted. In direct comparison to the most recent study performed at [facility] dated 06/12/2022 no pericardial effusion was present at that time. There is been interval reaccumulation of a small pericardial effusion. EKG performed 06/30/2022: Sinus rhythm at 93 bpm with occasional PVCs, no significant acute repolarization changes. An age-indeterminate anterior infarct cannot be excluded based on poor R wave progression in the precordial leads. Summary of radiology report of chest x-ray performed 06/30/2022: Large right pleural effusion Summary of noncontrast chest CT 06/30/2022: 1. There is diffuse pleural thickening throughout the right hemithorax and consolidation of the right mid to lower lung. There is interstitial infiltrate throughout the remaining right upper lung. Consider neoplasm. 2. There are multiple scattered pulmonary nodules in the left lung measuring up to 9 mm suggesting metastatic neoplasm. 3. There is a small to moderate left pleural effusion layering 5 cm dependently mild adjacent left basilar atelectasis. 4. Mild cardiomegaly and diffuse anasarca. Some component of CHF is suspected.
[2022-07-01] MEDS: DOXYCYCLINE HYCLATE 100 MG in DEXTROSE 5% 100 ML IV SCH (11:15)
--- NOTE | 2022-07-01 11:28 | History and Physical Report ---
DATE OF ADMISSION: 06/30/2022. CHIEF COMPLAINT: Cough and shortness of breath. 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 The patient used to live with the daughter. The patient's daughter says that the patient appeared to have malignant mesothelioma for last 2 years, but in January it was diagnosed and has spread to liver, and in April, he had one immunotherapy, but in May, he had COVID, so currently immunotherapy on hold. History of COPD, but not on home oxygen. It looks like he presented at [facility] on 06/06/2022 with a fall when he struck his head on the right side and on presentation was found to be hypotensive with systolic blood pressure in 70s and tachycardic with heart rate in the 110s. Corrigan-imaging studies were negative for traumatic injuries, but showed increased right-sided pleural effusion and pericardial effusion. At that time, his BNP was 1900, potassium was 5.6, creatinine was 2.2, lactate was 2.7, TSH 49, hemoglobin 7.4, procalcitonin 0.33. He was given about 2.2 liters of fluids, vancomycin, and Zosyn and started on norepinephrine and transferred to [facility] for continuation of care in [place]. He was in , mixed hypovolemic-cardiogenic shock. Underwent pericardiocentesis by cardiology on 06/07/2022. Pericardial drain was removed on 06/12/2022 after ensuring there was no reaccumulation. The pericardial effusion was thought due to malignancy, history of metastatic mesothelioma. The patient also had LEN, was thought to be postobstructive and Bailey catheter was placed. The patient was started on Flomax, was supposed to follow up with urology for a voiding trial. Palliative care saw the patient, seen by oncology and there is plan for outpatient followup for continuation of treatment of malignant mesothelioma. Palliative care saw, the patient goals of care were discussed and the patient wants to be full code and to be treated.His thyroid level was 49 and free T4 was 0.6. At discharge, thyroid dose was doubled to 150, but looks like at [facility] he was getting 100 mcg. The patient was transferred to [facility], looks like on 06/19/2022. As per daughter, his pain was not well controlled there and she was not happy with the care and she was wanting to go to a different residential, but also the patient was having lot of cough and having some congestion and short of breath. He was supposed to use oxygen only during nighttime, but the patient is not using currently. In the ER, chest x-ray was done, which showed large right pleural effusion and possible consolidation and was given a dose of Lasix and also the nebs. Currently, saturating okay on 6 liters. Blood pressure somewhat soft, resting comfortably. Denies any chest pain. Denies any headache. No neck pain. No nausea or vomiting. Appetite is down. No difficulty swallowing, eating regular food. No blurred visions, no earache, no runny nose. Has a lot of cough, but not bringing much sputum. No fevers. Denies abdominal pain at this time. Somewhat constipated and sometimes the stools are dark, but denies any blood in the stools. Normal micturitions. Ambulating with a walker, but not much. ALLERGIES: No known drug allergies. PAST MEDICAL HISTORY: As mentioned above. PAST SURGICAL HISTORY: ERCP with stent exchange for choledocholithiasis, skin excision of the benign skin tag on trunk, tunneled venous catheter insertion, bilateral knee arthroscopy, laparoscopic cholecystectomy, pericardiocentesis. MEDICATIONS: The patient is on albuterol 2 puffs inhalation every 6 hours p.r.n., vitamin D 125 mcg p.o. daily, vitamin B12 1000 mcg p.o. a.m., folic acid 1 mg p.o. a.m., guaifenesin 600 mg p.o. b.i.d., lactulose 15 mg p.o. b.i.d., levothyroxine 100 mcg daily, mirtazapine 15 mg p.o. at bedtime, multivitamin 1 tablet p.o. daily, naloxone spray p.r.n. for opioid overdose, Zofran 8 mg p.o. every 8 hours p.r.n., oxycodone 10 mg p.o. every 4 hours p.r.n., MiraLax 17 g p.o. daily, Senokot 8.6 mg p.o. at bedtime, Senokot-S 1 tablet p.o. a.m., Flomax 0.4 mg p.o. a.m., torsemide 10 mg p.o. a.m. FAMILY HISTORY: Significant for mother has COPD, coronary artery disease. Brother has diabetes. Sister has heart attack. Brother has heart failure, lung disorder. Brother has stroke. SOCIAL HISTORY: , currently lives with daughter. Currently, coming from [place]. No smoking history. Not drinking currently. Used to do marijuana in the 1970s, but not currently, reviewed as per [employer]. REVIEW OF SYSTEMS: As per HPI. Rest of the review of systems is negative. PHYSICAL EXAMINATION: GENERAL: The patient is moderately built, , not in acute distress. VITAL SIGNS: Temperature 36.6, pulse 88, respiratory rate 15, blood pressure 96/70, oxygen 100% on 6 liters. HEENT: Pupils equal, round and reactive to light. Oral mucosa moist. NECK: No JVD, no neck masses. CARDIOVASCULAR: S1 and S2 heard. Regular rate and rhythm. No murmur, no gallop. RESPIRATORY SYSTEM: Normal AP diameter. No accessory muscle use. Mild bibasilar crackles. No wheezing. ABDOMEN: Soft, bowel sounds present, nontender, no distention. CENTRAL NERVOUS SYSTEM: Alert and oriented. Speech is clear. No facial droop. Obeys simple commands. Insight is okay. Moves extremities. EXTREMITIES: Bilateral lower extremity pedal edema present, no erythema seen. SKIN: Dark pigmentations all over the body. LABORATORY DATA: WBC 6.5, hemoglobin 7.5, hematocrit 26.6, platelets 137. Sodium 141, potassium 5.1, chloride 105, CO2 23, BUN 19, creatinine 1.1, serum glucose 82, calcium 8.1, total bilirubin 0.2, AST 10, ALT 6, alkaline phosphatase 82. Troponin I high sensitivity 8.3. BNP pending. Lipase 4. SARS-CoV-2 by PCR positive. Influenza A and B PCR negative. RSV PCR negative. IMAGING DATA: Chest x-ray, cardiomegaly with evidence of congestive failure, large layering of right pleural effusion which tracks to the apex, atelectatic consolidation seen throughout the right lung. EKG: Sinus rhythm with occasional PVCs at a rate of 93. ASSESSMENT AND PLAN: This is a 71-year-old male who presents with metastatic malignant pleural mesothelioma, on immunotherapy, history of recent pericardial effusion causing cardiogenic shock and underwent paracentesis and drain was removed on 06/12/2022, discharged to [facility] on 06/19/2022, comes in with ongoing cough, short of breath and found to have a large right pleural effusion. 1. Large right pleural effusion, history of malignant mesothelioma. The patient was given Lasix in the ER. We will continue with IV Lasix daily. We will get a CT scan of the chest to get a better picture,. Empirically starting on Zosyn and doxycycline for possible pneumonia. Keep n.p.o. after midnight. Consult pulmonary in am Closely monitor in the tele floor. 2. History of recent pericardiocentesis. We will follow the CT chest and also echocardiogram. 3. Malignant mesothelioma, metastatic, was started on immunotherapy in April of this year and the patient was to continue treatment, was on hold when he was diagnosed with coronavirus disease on 05/21/2022. Follow up with Hem/Onc. 4. Coronavirus disease. The patient was coronavirus disease positive on 05/21/2022. Initially, here rapid test negative, but PCR is positive. We will do coronavirus disease precautions. 5. Anemia, mostly from underlying illness. We will check the stool for Hemoccult, iron studies, vitamin B12, folate levels. Closely monitor the labs.Hb 7.5. .same as on discharge from [place] on 06/19/22 6. Chronic cancer pain. Continue his home pain medication but reduce dose forf now. Monitor closely. 7. Constipation. Continue bowel regimen. 8. Hypothyroidism. Recently his Synthroid dose was increased from 75 to 100. We will follow thyroid functions. 9. History of chronic obstructive pulmonary disease. Continue nebs around the clock and p.r.n. Does not have an active wheezing at this time. 10. Urinary retention, obstructive uropathy. On Bailey catheter and Flomax. Continue Bailey care. Needs to follow up with urology for voiding trial. 11. Acute on chronic diastolic congestive heart failure, lower extremity edema and pleural effusion. The patient is on torsemide 10 mg daily at home, which we will hold and place on IV Lasix 40mg daily. We will follow echo and consult cardiology in the a.m. 12. Deep venous thrombosis prophylaxis. Placed on Lovenox. If stool occult blood comes positive, we will stop the Lovenox. DISPOSITION: Closely monitor in the tele floor. Level 1 full code as per my discussion with the patient and his daughter. PT, OT prior to discharge. Social service to help with discharge planning. Daughter does not want him to go back to [facility], want to go to a different residential. Job ID: [id number] [facility]
--- NOTE | 2022-07-01 14:51 | Hospitalist Progress Note ---
Date of Service July 01, 2022 Assessment & Plan (1) Acute hypercapnic respiratory failure: Plan: History of metastatic mesothelioma, COPD and right pleural effusion which are contributing to acute respiratory failure Diffuse pleural thickening throughout the right hemithorax and consolidation of the right mid and lower lung with interstitial infiltrate throughout the remaining part of the right upper lung Has been on 2 L of oxygen to maintain saturation Has been getting empiric antibiotic to cover possible infection Appreciate pulmonary input and recommendation Pleural effusions Not much fluid to be drained Will monitor (2) 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: Plan: Has metastatic malignant mesothelioma Received immunotherapy in [place] as palliative Discussed with the patient and he wants to be a full code We will discuss with the sign painter apprentice on discharge (3) Malignant pericardial effusion: Plan: Noted to have malignant pericardial effusion in [place] status post drainage on 06/07/2022 Echocardiogram of the heart did not show significant pericardial fluid now Has been having short runs of VT likely secondary to involvement of the heart with malignancy We will continue supportive care Appreciate cardiology input and recommendation Echo of the heart showed-mild concentric LVH, no regional wall motion abnormalities, LV is hyperdynamic, EF was noted to be more than 70%, right ventricle is normal size and function, grade 1 diastolic dysfunction, no significant valvular disease, aortic root is moderately enlarged diameter of 4.7 cm, small circumferential pericardial effusion is present, there is circumferential echodensity in the pericardial space consistent with fibrinous strands or coagulum, no cardiac tamponade. Monitor in the telemetry unit (4) Anemia: Plan: Hemoglobin is running around 7.1 We will monitor and give blood transfusion as needed if it is below 7 (5) Chronic diastolic heart failure: Plan: History of chronic diastolic heart failure No evidence of overt heart failure now (6) COPD (chronic obstructive pulmonary disease): Plan: COPD is complicating the current management and presentation (7) COVID-19 virus infection: Plan: Noted to have COVID-19 virus infection with history of documented coronavirus on 05/21/2022 No acute respiratory symptoms and does not require any treatment for that Chronic cancer pain-stable now Hypothyroidism-give supplement DVT prophylaxis- Lovenox CODE STATUS Discussed with the patient in [facility] Wanted to have a full code Admission and Anticipated Discharge Date Admission Date: June 30, 2022 Subjective 07/01/2022 The patient was seen and examined in telemetry unit in presence of the daughter He has been generally weak and has minimal cough and minimal shortness of breath Denies any other significant symptoms He definitely wants to be a full code Review of Systems Review of Systems: All systems reviewed and are unremarkable except as noted below Respiratory: Mild to moderate shortness of breath at rest Physical Exam Physical Exam: Lying in bed with moderate shortness of breath and cough Constitutional: well developed, well nourished, + ill appearing and + obese Eyes: PERRL, conjunctivae normal, anicteric sclerae ENMT: external ear and nose normal, oropharynx normal Neck: trachea midline, no thyromegaly Respiratory: + respiratory distress (Moderate distress at rest) Auscultation: + diminished lung sounds, + crackles (Bilateral crackles more on the right than the left side) and + wheezes Cardiovascular: Rate/Rhythm: regular rate and regular rhythm; not tachycardic Heart Sounds: normal S1, normal S2 and + murmur Extremities: + edema (1+ edema bilaterally) Gastrointestinal (Abdomen): Inspection/Auscultation: + abdomen distended and normal bowel sounds Percussion/Palpation: abdomen soft; abdomen nontender Musculoskeletal: No acute arthritis involving any joint Neurologic: Alert, awake and oriented x3. Generally weak but no focal motor deficit appreciated Lymphatic: no cervical or axillary lymphadenopathy Results & Data Results & Data Vital Signs (Past 12 Hours) Vital Signs Temp Pulse Pulse Resp BP Pulse Ox Pulse Ox 07/01/22 11:07 85 18 99 07/01/22 08:00 07/01/22 08:00 95 07/01/22 07:43 36.3 C L 88 20 118/76 90 07/01/22 07:00 76 07/01/22 07:04 79 20 98 07/01/22 03:23 36.2 C L 85 20 103/63 94 O2 Del Method O2 Del Method O2 Flow Rate O2 Flow Rate 07/01/22 11:07 Nasal Cannula 2 07/01/22 08:00 Nasal Cannula 2 07/01/22 08:00 Nasal Cannula 2 07/01/22 07:43 Room Air 07/01/22 07:00 07/01/22 07:04 Nasal Cannula 2 07/01/22 03:23 Nasal Cannula 2 Laboratory Results Short CBC 06/30/22 07/01/22 07/01/22 Range/Units 16:56 05:30 06:28 WBC 6.59 5.56 (4.8-10.8) K/ul Hgb 7.5 L 6.7 L* 7.1 L (14.0-18.0) g/dl Hct 26.6 L 24.4 L 25.2 L (42.0-52.0) % Plt Count 137 128 L (130-400) K/uL BMP 06/30/22 07/01/22 16:56 05:30 Sodium 141 139 Potassium 5.1 4.5 Chloride 105 104 Carbon Dioxide 33 H 32 BUN 19 20 Creatinine 1.12 1.16 Glucose 82 80 Calcium 8.1 L 7.6 L Liver Function 06/30/22 Range/Units 16:56 Total Bilirubin 0.2 (0.2-1.0) mg/dl AST 10 L (13-39) U/L ALT 6 L (7-52) U/L Alkaline Phosphatase 82 (34-104) U/L Albumin 2.3 L (3.4-5.0) gm/dl Medications Administered Current Inpatient Medications Acetaminophen (Acetaminophen 325 Mg Tab) 650 mg PO Q4H PRN PRN Reason: Pain or Fever Stop: 07/30/22 21:48 Albuterol (Albuterol Hfa 8 Gm Inhaler) 2 puffs INH 6XD PRN PRN Reason: Shortness Of Breath Or Wheezin Stop: 07/30/22 21:48 Albuterol (Albut/Ipratrop 3mg/0.5mg Neb 3 Ml Vial) 3 ml NEB Q4R PRN; Protocol PRN Reason: Shortness Of Breath Or Wheezing Stop: 07/30/22 21:48 Albuterol (Albut/Ipratrop 3mg/0.5mg Neb 3 Ml Vial) 3 ml NEB QIDR JONATHAN; Protocol Stop: 07/31/22 06:59 Last Admin: 07/01/22 11:07 Dose: 3 ml Cyanocobalamin (Cyanocobalamin (B-12) 500 Mcg Tablet) 1,000 mcg PO QAM [facility] Stop: 07/31/22 08:59 Last Admin: 07/01/22 09:34 Dose: 1,000 mcg Enoxaparin Sodium (Enoxaparin Inj 40 Mg/0.4 Ml Syr) 40 mg SQ Q24H [facility] Stop: 07/30/22 21:59 Last Admin: 06/30/22 22:52 Dose: 40 mg Folic Acid (Folic Acid 1 Mg Tab) 1 mg PO QAM JONATHAN Stop: 07/31/22 08:59 Last Admin: 07/01/22 09:34 Dose: 1 mg Furosemide (Furosemide 40 Mg/4 Ml Vial) 40 mg IV DAILY JONATHAN Stop: 07/31/22 08:59 Last Admin: 07/01/22 09:33 Dose: 40 mg Guaifenesin (Guaifenesin 600 Mg Tabcr) 600 mg PO Q12 JONATHAN Stop: 07/30/22 21:48 Last Admin: 07/01/22 09:34 Dose: 600 mg Piperacillin Sod/Tazobactam (Sod 4.5 gm/ Dextrose) 120 mls @ 30 mls/hr IV Q8H [facility]; Protocol Stop: 07/08/22 03:59 Last Admin: 07/01/22 12:59 Dose: 30 mls/hr Doxycycline Hyclate 100 mg/ (Dextrose) 110 mls @ 50 mls/hr IV Q12H [facility] Stop: 07/07/22 22:59 Last Infusion: 07/01/22 13:36 Dose: Infused Lactulose (Lactulose Syrup 10 Gm/15 Ml Btl 960 Ml) 10 gm PO BID JONATHAN Stop: 07/30/22 21:48 Last Admin: 07/01/22 09:35 Dose: 10 gm Levothyroxine Sodium (Levothyroxine Sodium 100 Mcg Tablet) 100 mcg PO DAILYBB JONATHAN Stop: 07/31/22 06:29 Last Admin: 07/01/22 05:39 Dose: 100 mcg Mirtazapine (Mirtazapine Tab 15 Mg Tab) 15 mg PO HS [facility] Stop: 07/30/22 21:48 Last Admin: 06/30/22 22:51 Dose: 15 mg Multivitamins (Multivitamin Tab) 1 tab PO QAM JONATHAN Stop: 07/31/22 08:59 Last Admin: 07/01/22 09:34 Dose: 1 tab Nitroglycerin (Nitroglycerin Sl 0.4 Mg/Tab Tab) 0.4 mg SL UD PRN PRN Reason: Chest Pain Stop: 07/30/22 21:48 Oxycodone HCl (Oxycodone Hcl Ir 5 Mg Tab (Immediate Release)) 5 mg PO Q4H PRN PRN Reason: Pain Stop: 07/14/22 21:48 Polyethylene Glycol (Polyethylene (Miralax) 17 Gm Pack) 17 gm PO DAILY PRN PRN Reason: Constipation Stop: 07/30/22 21:48 Senna/Docusate Sodium (Docusate Sodium/Senna 50/8.6mg Tab) [facility] Stop: 07/31/22 08:59 Last Admin: 07/01/22 09:34 Dose: 1 tab Sennosides (Senna 8.6 Mg Tab) 8.6 mg PO [facility] Stop: 07/30/22 21:48 Last Admin: 06/30/22 22:52 Dose: 8.6 mg Tamsulosin HCl (Tamsulosin Hcl 0.4 Mg Cap) 0.4 mg PO [facility] Stop: 07/31/22 08:59 Last Admin: 07/01/22 09:34 Dose: 0.4 mg Vitamin D (Cholecalciferol 5,000 Units 125 Mcg Tab) 5,000 units PO [facility] Stop: 07/31/22 08:59 Last Admin: 07/01/22 09:34 Dose: 5,000 units
[2022-07-01] MEDS: oxyCODONE HCL IR 5 MG TAB (IMMEDIATE RELEASE) PO PRN (14:52)
[2022-07-01] MEDS ORDERED: MAGNESIUM SULFATE / D5W 1 GM/100 ML BAG IV ONE (19:43)
[2022-07-01] MEDS: MAGNESIUM SULFATE / D5W 1 GM/100 ML BAG IV SCH ×2 (20:42→22:28)
[2022-07-01] MEDS: MIRTAZAPINE TAB 15 MG TAB PO SCH (20:45)
[2022-07-01] MEDS: ENOXAPARIN INJ 40 MG/0.4 ML SYR SQ SCH (20:46)
[2022-07-01] MEDS: SENNA 8.6 MG TAB PO SCH (20:46)
[2022-07-01] MEDS: guaiFENesin SUGAR FREE 200 MG/10 ML UDC PO PRN (22:07)
[2022-07-01] MEDS: BENZONATATE 100 MG CAPSULE PO PRN (22:07)
[2022-07-01] MEDS: ACETAMINOPHEN 325 MG TAB PO PRN (22:07)
[2022-07-01] MEDS ORDERED: ACETAMINOPHEN 1,000 MG/100 ML VIAL IV STA (23:03)
[2022-07-02] MEDS ORDERED: KETOROLAC TROMETHAMINE 15 MG/ML VIAL IV ONE ×2 (00:11→02:37)
[2022-07-02] MEDS: DOXYCYCLINE HYCLATE 100 MG in DEXTROSE 5% 100 ML IV SCH ×2 (00:25→11:50)
[2022-07-02] MEDS: PIPERACILLIN/TAZOBACTAM 4.5 GM in DEXTROSE 5% 100 ML IV SCH ×3 (03:14→20:00)
[2022-07-02] MEDS: LEVOTHYROXINE SODIUM 100 MCG TABLET PO SCH (05:51)
[2022-07-02] MEDS: ALBUT/IPRATROP 3MG/0.5MG NEB 3 ML VIAL NEB SCH ×4 (07:26→19:44)
[2022-07-02 07:29] LABS: Hematocrit (blood only) 23.8 % (42.0-52.0); Hemoglobin 6.7 g/dl (14.0-18.0); Mean Corpuscular Hemoglobin 22.1 pg (25.0-34.0); Mean Corpuscular Hgb Conc 28.2 g/dL (32.0-36.0); Mean Corpuscular Volume 78.5 fL (80.0-100.0); Mean Platelet Volume 9.9 fL (9.4-12.4); Platelet Count 144 K/uL (130-400); RDW Coefficient of Variation 18.7 % (11.5-14.5); RDW Standard Deviation 53.5 fL (36.4-46.3); Red Blood Count 3.03 M/uL (4.70-6.10); White Blood Count 5.66 K/ul (4.8-10.8)
[2022-07-02 07:40] LABS: Magnesium 1.9 mg/dl (1.7-2.4); Phosphorus 3.5 mg/dl (2.5-4.9)
[2022-07-02 07:59] LABS: Basophils # (auto) 0.02 K/uL (0-0.2); Basophils % (auto) 0.4 %; Eosinophils % (auto) 1.8 %; Immature Granulocytes # (auto) 0.11 K/uL (0.01-0.20); Immature Granulocytes % (auto) 1.9 %; Lymphocytes # (auto) 0.82 K/uL (1.2-3.4); Lymphocytes % (auto) 14.5 %; Monocytes # (auto) 0.34 K/uL (0.11-0.59); Neutrophils # (auto) 4.27 K/uL (1.40-6.50); Neutrophils % (auto) 75.4 %; RBC Morphology Unremarkable
[2022-07-02] MEDS: guaiFENesin SUGAR FREE 200 MG/10 ML UDC PO PRN (08:48)
[2022-07-02] MEDS: guaiFENesin 600 MG TABCR PO SCH ×2 (08:48→21:01)
[2022-07-02] MEDS: CHOLECALCIFEROL 5,000 UNITS 125 MCG TAB PO SCH (08:48)
[2022-07-02] MEDS: CYANOCOBALAMIN (B-12) 500 MCG TABLET PO SCH (08:48)
[2022-07-02] MEDS: MULTIVITAMIN TAB PO SCH (08:49)
[2022-07-02] MEDS: FOLIC ACID 1 MG TAB PO SCH (08:49)
[2022-07-02] MEDS: LACTULOSE SYRUP 10 GM/15 ML BTL 960 ML PO SCH ×2 (08:49→21:12)
[2022-07-02] MEDS: TAMSULOSIN HCL 0.4 MG CAP PO SCH (08:49)
[2022-07-02] MEDS: FUROSEMIDE 40 MG/4 ML VIAL IV SCH (08:49)
[2022-07-02] MEDS: DOCUSATE SODIUM/SENNA 50/8.6MG TAB PO SCH (08:49)
[2022-07-02] MEDS: BENZONATATE 100 MG CAPSULE PO PRN (08:49)
--- NOTE | 2022-07-02 08:49 | Pulmonology Progress Note ---
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 It is unclear why he was actually brought to the emergency room and admitted here. Apparently according to the bedside nurse, the family was unhappy with the care that he was receiving and wanted him admitted to the facility to work on placement at an alternative institution. His CT scan shows diffuse pleural thickening. CT chest 06/30/2022 personally reviewed: Bilateral pleural effusion, left greater than the right Multiple pulmonary nodules appreciated bilaterally Right-sided pleural thickening with elevated right hemidiaphragm Consolidative process versus pulmonary mass on the right side Minimal mediastinal lymphadenopathy 2D echo 07/01/2022: EF greater than 70%, aortic root moderately enlarged with diameter 4.7 cm small circumferential pericardial effusion, grade 1 diastolic dysfunction, RV normal in size and function ABG 07/01/2022: 7.31/65/61 on room air -- Acute hypercapnic respiratory failure Likely from underlying COPD and 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 -- COVID positive test Patient originally tested positive on 05/21/2022 at [facility] along with other family members COVID-19 PCR positive on 06/30/2022 at the time of presentation to the hospital Influenza A/B, RSV negative BNP [address] chest changes being from covid is LOW, I can not be 100% certain as I do not have previous imaging in the system. Would recommend holding back any medications right now. If there is any significant worsening on the CAT scan of the chest at presentation compared to before and dexamethasone can be added Plan: Would recommend to see if he can transfer images from [facility] to compare the previous CAT scan Follow-up procalcitonin No plan for thoracentesis given the patient is saturating well on room air and in no respiratory distress Possibility of this effusion being malignant is high Recommend palliative care consult Repeat ABG in the morning Case was discussed with RN and Dr. Judd Please note the above document was generated using voice recognition software. It may contain grammatical, syntax or spelling errors.Any formal questions or concerns about the content, text or information contained within the body of this dictation should be directly addressed to the provider for clarification. Admission and Anticipated Discharge Date Admission Date: June 30, 2022 Subjective Patient seen and examined at bedside. No acute distress, no events events overnight Patient was saturating 91-92% on room air He was little bit somnolent but answering few questions appropriately Denies any chest pain, no headache, no nausea, no vomiting No abdominal pain Case was discussed with outgoing patient services assistant Review of Systems Review of Systems: All systems reviewed & are unremarkable except as noted in Subjective Physical Exam Physical Exam: Constitutional: No acute distress HEENT: EOMI, PERRLA Respiratory system: Decreased air entry bilaterally, more decreased on the right side, no wheeze, no rhonchi, positive crackles bilaterally CVS: S1-S2 positive Abdomen: Soft, nontender, nondistended, positive bowel sounds x4 Extremities: +2 pulses bilaterally radialis/ dorsalis pedis, no cyanosis, +1 pitting edema bilateral lower extremity Neuro: Awake alert oriented to self Psych: Flat mood and affect G/U: Positive Bailey Skin: no rashes, warm and dry Lymphatic: no cervical or axillary lymphadenopathy Results & Data Results & Data Vital Signs (Past 12 Hours) Vital Signs Temp Pulse Pulse Resp BP BP Pulse Ox 07/02/22 08:00 36.5 C 87 22 107/74 92 07/02/22 07:26 84 20 98 07/02/22 03:12 36.9 C 84 20 105/69 98 07/02/22 00:14 87 07/02/22 00:03 86 88/53 L 07/01/22 22:03 36.7 C 87 22 92/62 L 98 O2 Del Method O2 Flow Rate 07/02/22 08:00 Room Air 07/02/22 07:26 Nasal Cannula 1 07/02/22 03:12 Nasal Cannula 2 07/02/22 00:14 07/02/22 00:03 07/01/22 22:03 Nasal Cannula 2 Laboratory Results 07/02/22 06:45 07/01/22 05:30 PG Care Time/CCT Total # of Minutes Spent Total Time Spent with Patient: Total time spent is greater than 50% in coordination of care (as documented) at patient's floor/unit and/or counseling patient: Coding Level of Care Code 15598 SUB INP/OBS CARE 3/50MIN Diagnoses Mesothelioma C45.9 Failure to thrive in adult R62.7 Anemia D64.9 Acute hypercapnic respiratory failure J96.02 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
[2022-07-02] MEDS: oxyCODONE HCL IR 5 MG TAB (IMMEDIATE RELEASE) PO PRN ×2 (08:50→12:31)
--- NOTE | 2022-07-02 09:04 | Electrocardiogram Report ---
Test Reason : Blood Pressure : / mmHG Vent. Rate : 093 BPM Atrial Rate : 093 BPM P-R Int : 162 ms QRS Dur : 072 ms QT Int : 338 ms P-R-T Axes : 019 051 124 degrees QTc Int : 420 ms Sinus rhythm with occasional Premature ventricular complexes Low voltage QRS Cannot rule out Anterior infarct , age undetermined Abnormal ECG No previous ECGs available Confirmed by Bradley Coleman ([id number]) on 07/02/2022 9:04:38 AM Referred By: [facility] Confirmed By:Bradley Coleman
[2022-07-02 10:24] LABS: Calcium 7.5 mg/dl (8.6-10.3); Magnesium 1.7 mg/dl (1.7-2.4); Potassium 4.9 mmol/L (3.5-5.1)
[2022-07-02 10:30] LABS: BUN Creatinine Ratio 15.4 (10-20); Creatinine Clr Calc Pharmacy 56.4 ml/min; Est GFR (African American) 57.1 ml/min; Est GFR (Non-African American) 49.3 ml/min
--- NOTE | 2022-07-02 14:49 | Hospitalist Progress Note ---
Date of Service July 02, 2022 Assessment & Plan (1) Acute hypercapnic respiratory failure: Plan: History of metastatic mesothelioma, COPD and right pleural effusion which are contributing to acute respiratory failure Diffuse pleural thickening throughout the right hemithorax and consolidation of the right mid and lower lung with interstitial infiltrate throughout the remaining part of the right upper lung Has been on 2 L of oxygen to maintain saturation Has been getting empiric antibiotic to cover possible infection Appreciate pulmonary input and recommendation Mild shortness of breath at rest and saturating normally on room air Pleural effusions Not much fluid to be drained Will monitor As above Anemia of chronic disease Complicated by acute renal impairment We will give 1 unit of blood transfusion (2) 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: Plan: Has metastatic malignant mesothelioma Received immunotherapy in [place] as palliative Discussed with the patient and he wants to be a full code We will discuss with the chandelier maker on discharge He is aware about the diagnosis and wants everything to be done to make him better if possible (3) Malignant pericardial effusion: Plan: ShortNoted to have malignant pericardial effusion in [place] status post drainage on 06/07/2022 Echocardiogram of the heart did not show significant pericardial fluid now Has been having short runs of VT likely secondary to involvement of the heart with malignancy We will continue supportive care Appreciate cardiology input and recommendation Echo of the heart showed-mild concentric LVH, no regional wall motion abnormalities, LV is hyperdynamic, EF was noted to be more than 70%, right ventricle is normal size and function, grade 1 diastolic dysfunction, no significant valvular disease, aortic root is moderately enlarged diameter of 4.7 cm, small circumferential pericardial effusion is present, there is circumferential echodensity in the pericardial space consistent with fibrinous strands or coagulum, no cardiac tamponade. Monitor in the telemetry unit Has had runs of V. tach yesterday-we will monitor electrolytes and correct it if needed (4) Anemia: Plan: Hemoglobin is running around 7.1 We will monitor and give blood transfusion as needed if it is below 7 Hemoglobin is dropped to 6.7 We will give him 1 unit of blood transfusion (5) Chronic diastolic heart failure: Plan: History of chronic diastolic heart failure No evidence of overt heart failure now (6) COPD (chronic obstructive pulmonary disease): Plan: COPD is complicating the current management and presentation (7) COVID-19 virus infection: Plan: Noted to have COVID-19 virus infection with history of documented coronavirus on 05/21/2022 No acute respiratory symptoms and does not require any treatment for that . Saturating normally on room air Chronic cancer pain-stable now Hypothyroidism-give supplement DVT prophylaxis- Lovenox CODE STATUS Discussed with the patient in [place] Wanted to have a full code Admission and Anticipated Discharge Date Admission Date: June 30, 2022 Subjective 07/01/2022 The patient was seen and examined in telemetry unit in presence of the daughter He has been generally weak and has minimal cough and minimal shortness of breath Denies any other significant symptoms He definitely wants to be a full code 07/02/2022 The patient was seen and examined in telemetry unit He has been stable and complains to have some pain at the infusion site Has minimal shortness of breath at rest but denies any chest pain, palpitation, abdominal pain, nausea and or vomiting He still wants everything to be done to make him better Review of Systems Review of Systems: All systems reviewed and are unremarkable except as noted below Respiratory: Mild to moderate shortness of breath at rest Physical Exam Physical Exam: Lying in bed with moderate shortness of breath and cough Constitutional: well developed, well nourished, + ill appearing and + obese Eyes: PERRL, conjunctivae normal, anicteric sclerae ENMT: external ear and nose normal, oropharynx normal Neck: trachea midline, no thyromegaly Respiratory: + respiratory distress (Moderate distress at rest) Auscultation: + diminished lung sounds, + crackles (Bilateral crackles more on the right than the left side) and + wheezes Cardiovascular: Rate/Rhythm: regular rate and regular rhythm; not tachycardic Heart Sounds: normal S1, normal S2 and + murmur Extremities: + edema (1+ edema bilaterally) Gastrointestinal (Abdomen): Inspection/Auscultation: + abdomen distended and normal bowel sounds Percussion/Palpation: abdomen soft; abdomen nontender Musculoskeletal: No acute arthritis involving any of the joint Skin: 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 Neurologic: normal touch/pain/proprioception and moves all extremities; no focal motor deficits Lymphatic: no cervical or axillary lymphadenopathy Results & Data Results & Data Vital Signs (Past 12 Hours) Vital Signs Temp Pulse Resp BP Pulse Ox O2 Del Method O2 Del Method 07/02/22 11:38 82 18 91 Room Air 07/02/22 08:00 Nasal Cannula 07/02/22 08:00 Room Air 07/02/22 08:00 36.5 C 87 22 107/74 92 Room Air 07/02/22 07:26 84 20 98 Nasal Cannula 07/02/22 03:12 36.9 C 84 20 105/69 98 Nasal Cannula O2 Flow Rate 07/02/22 11:38 07/02/22 08:00 2 07/02/22 08:00 07/02/22 08:00 07/02/22 07:26 1 07/02/22 03:12 2 Laboratory Results Short CBC 07/02/22 Range/Units 06:45 WBC 5.66 (4.8-10.8) K/ul Hgb 6.7 L* (14.0-18.0) g/dl Hct 23.8 L (42.0-52.0) % Plt Count 144 (130-400) K/uL BMP 07/02/22 08:48 Sodium 138 Potassium 4.9 Chloride 103 Carbon Dioxide 32 BUN 22 Creatinine 1.43 H Glucose 76 Calcium 7.5 L Medications Administered Current Inpatient Medications Acetaminophen (Acetaminophen 325 Mg Tab) 650 mg PO Q4H PRN PRN Reason: Pain or Fever Stop: 07/30/22 21:48 Last Admin: 07/01/22 22:07 Dose: 650 mg Albuterol (Albuterol Hfa 8 Gm Inhaler) 2 puffs INH 6XD PRN PRN Reason: Shortness Of Breath Or Wheezin Stop: 07/30/22 21:48 Albuterol (Albut/Ipratrop 3mg/0.5mg Neb 3 Ml Vial) 3 ml NEB Q4R PRN; Protocol PRN Reason: Shortness Of Breath Or Wheezing Stop: 07/30/22 21:48 Albuterol (Albut/Ipratrop 3mg/0.5mg Neb 3 Ml Vial) 3 ml NEB QIDR JONATHAN; Protocol Stop: 07/31/22 06:59 Last Admin: 07/02/22 11:38 Dose: 3 ml Benzonatate (Benzonatate 100 Mg Capsule) 100 mg PO TID PRN PRN Reason: Cough Stop: 07/31/22 21:26 Last Admin: 07/02/22 08:49 Dose: 100 mg Cyanocobalamin (Cyanocobalamin (B-12) 500 Mcg Tablet) 1,000 mcg PO QAM [facility] Stop: 07/31/22 08:59 Last Admin: 07/02/22 08:48 Dose: 1,000 mcg Enoxaparin Sodium (Enoxaparin Inj 40 Mg/0.4 Ml Syr) 40 mg SQ Q24H JONATHNA Stop: 07/30/22 21:59 Last Admin: 07/01/22 20:46 Dose: 40 mg Folic Acid (Folic Acid 1 Mg Tab) 1 mg PO QAM JONATHAN Stop: 07/31/22 08:59 Last Admin: 07/02/22 08:49 Dose: 1 mg Furosemide (Furosemide 40 Mg/4 Ml Vial) 40 mg IV DAILY JONATHAN Stop: 07/31/22 08:59 Last Admin: 07/02/22 08:49 Dose: 40 mg Guaifenesin (Guaifenesin 600 Mg Tabcr) 600 mg PO Q12 JONATHAN Stop: 07/30/22 21:48 Last Admin: 07/02/22 08:48 Dose: 600 mg Guaifenesin (Guaifenesin Sugar Free 200 Mg/10 Ml Udc) 200 mg PO Q6H PRN PRN Reason: Cough Stop: 07/31/22 21:26 Last Admin: 07/02/22 08:48 Dose: 200 mg Piperacillin Sod/Tazobactam (Sod 4.5 gm/ Dextrose) 120 mls @ 30 mls/hr IV Q8H [facility]; Protocol Stop: 07/08/22 03:59 Last Admin: 07/02/22 11:50 Dose: 30 mls/hr Doxycycline Hyclate 100 mg/ (Dextrose) 110 mls @ 50 mls/hr IV Q12H [facility] Stop: 07/07/22 22:59 Last Infusion: 07/02/22 14:01 Dose: Infused Lactulose (Lactulose Syrup 10 Gm/15 Ml Btl 960 Ml) 10 gm PO BID JONATHAN Stop: 07/30/22 21:48 Last Admin: 07/02/22 08:49 Dose: 10 gm Levothyroxine Sodium (Levothyroxine Sodium 100 Mcg Tablet) 100 mcg PO DAILYBB JONATHAN Stop: 07/31/22 06:29 Last Admin: 07/02/22 05:51 Dose: 100 mcg Mirtazapine (Mirtazapine Tab 15 Mg Tab) 15 mg PO HS [facility] Stop: 07/30/22 21:48 Last Admin: 07/01/22 20:45 Dose: 15 mg Multivitamins (Multivitamin Tab) [facility] [place]: 07/31/22 08:59 Last Admin: 07/02/22 08:49 Dose: 1 tab Nitroglycerin (Nitroglycerin Sl 0.4 Mg/Tab Tab) 0.4 mg SL UD PRN PRN Reason: Chest Pain Stop: 07/30/22 21:48 Oxycodone HCl (Oxycodone Hcl Ir 5 Mg Tab (Immediate Release)) 5 mg PO Q4H PRN PRN Reason: Pain Stop: 07/14/22 21:48 Last Admin: 07/02/22 12:31 Dose: 5 mg Polyethylene Glycol (Polyethylene (Miralax) 17 Gm Pack) 17 gm PO DAILY PRN PRN Reason: Constipation Stop: 07/30/22 21:48 Senna/Docusate Sodium (Docusate Sodium/Senna 50/8.6mg Tab) 1 tab PO [facility] Stop: 07/31/22 08:59 Last Admin: 07/02/22 08:49 Dose: 1 tab Sennosides (Senna 8.6 Mg Tab) 8.6 mg PO [facility] Stop: 07/30/22 21:48 Last Admin: 07/01/22 20:46 Dose: 8.6 mg Tamsulosin HCl (Tamsulosin Hcl 0.4 Mg Cap) 0.4 mg PO [facility] Stop: 07/31/22 08:59 Last Admin: 07/02/22 08:49 Dose: 0.4 mg Vitamin D (Cholecalciferol 5,000 Units 125 Mcg Tab) 5,000 units PO [facility] Stop: 07/31/22 08:59 Last Admin: 07/02/22 08:48 Dose: 5,000 units
[2022-07-02] MEDS ORDERED: SODIUM CHLORIDE 0.9% 250 ML IV PRN (15:33)
[2022-07-02] MEDS: dexAMETHasone 6 MG in SYRINGE 0 ML IV SCH (17:30)
[2022-07-02] MEDS: SENNA 8.6 MG TAB PO SCH (21:03)
[2022-07-02] MEDS: MIRTAZAPINE TAB 15 MG TAB PO SCH (21:03)
[2022-07-02] MEDS: ENOXAPARIN INJ 40 MG/0.4 ML SYR SQ SCH (21:12)
[2022-07-03] MEDS: oxyCODONE HCL IR 5 MG TAB (IMMEDIATE RELEASE) PO PRN ×4 (00:57→19:57)
[2022-07-03] MEDS: DOXYCYCLINE HYCLATE 100 MG in DEXTROSE 5% 100 ML IV SCH ×2 (01:24→09:55)
[2022-07-03] MEDS: PIPERACILLIN/TAZOBACTAM 4.5 GM in DEXTROSE 5% 100 ML IV SCH ×3 (03:51→19:50)
[2022-07-03 06:09] LABS: Base Excess ABG 8.8 mEq/L (-9-1.8); HCO3 ABG 35 mmol/L (19-24); Oxygen Saturation ABG 93.8 % (90-95); PCO2 ABG 51 mmHg (35-46); PO2 ABG 59 mmHg (80-95); pH ABG 7.44 (7.35-7.45)
[2022-07-03] MEDS: LEVOTHYROXINE SODIUM 100 MCG TABLET PO SCH (06:15)
[2022-07-03 06:24] LABS: Allen Test Pos (Pos)
[2022-07-03] MEDS: ALBUT/IPRATROP 3MG/0.5MG NEB 3 ML VIAL NEB SCH ×4 (07:15→19:08)
--- NOTE | 2022-07-03 08:27 | Pulmonology Progress Note ---
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 It is unclear why he was actually brought to the emergency room and admitted here. Apparently according to the bedside nurse, the family was unhappy with the care that he was receiving and wanted him admitted to the facility to work on placement at an alternative institution. His CT scan shows diffuse pleural thickening. CT chest 06/30/2022 personally reviewed: Bilateral pleural effusion, left greater than the right Multiple pulmonary nodules appreciated bilaterally Right-sided pleural thickening with elevated right hemidiaphragm Consolidative process versus pulmonary mass on the right side Minimal mediastinal lymphadenopathy The consolidative process in the right upper lobe is new compared to CAT scan do ne 06/04/2022 2D echo 07/01/2022: EF greater than 70%, aortic root moderately enlarged with diameter 4.7 cm small circumferential pericardial effusion, grade 1 diastolic dysfunction, RV normal in size and function ABG 07/01/2022: 7.31/65/61 on room air --> 7.44/51/59 on room air -- Acute hypercapnic respiratory failure Likely from underlying COPD and restrictive lung disease from encasing tumour Avoid medication which can suppress respiratory drive Do not over oxygenate the patient, keep O2 saturation between 90-92% -- Pleural effusion Bilateral, left greater than right Likely malignant Diastolic heart failure might also be playing a role Procalcitonin 0.16 Patient is not requiring any oxygen and is not in any respiratory distress, no plan for any intervention right now -- 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 -- COVID positive test Patient originally tested positive on 05/21/2022 at [facility] along with other family members COVID-19 PCR positive on 06/30/2022 at the time of presentation to the hospital Influenza A/B, RSV negative BNP 530 There is any significant worsening on the CAT scan of the chest at presentation compared to before, thus dexamethasone was added Plan: Patient CT chest from earlier last month which was done in [place] personally reviewed. On the latest CT chest patient does seem to have dense consolidative process in the right upper lobe Pneumonia as well as history of COVID could be playing a role. Complete the course of dexamethasone for total of 10 days Patient did seem to be coherent, but he seems to be in denial regarding his malignancy. I did explain to him in detail the poor prognosis associated with it. He said he is going to think about it but would like to keep the things the way they are. I did explain to him that he can still continue with the antibiotics and care but in case of worsening escalation of care would not be appropriate. I would still recommend palliative care consult Continue with flutter valve, hypertonic saline to be added Any opioid medication will suppress the respiratory drive and cause hypercapnia. Need to keep that in mind. Unfortunately patient is noncompliant with BiPAP Case was discussed with RN and Dr. Judd Please note the above document was generated using voice recognition software. It may contain grammatical, syntax or spelling errors.Any formal questions or concerns about the content, text or information contained within the body of this dictation should be directly addressed to the provider for clarification. Admission and Anticipated Discharge Date Admission Date: June 30, 2022 Subjective Patient seen and examined at bedside. No acute distress, no adverse events overnight He was saturating 92-94% on room air. Patient has been going into V. tach's now currently on amiodarone drip He was not in any respiratory distress Denies any headache, no nausea vomiting, no chest pain, he does complain of cough and is not able to bring up the phlegm Poor appetite Review of Systems Review of Systems: All systems reviewed & are unremarkable except as noted in Subjective Physical Exam Physical Exam: Constitutional: No acute distress HEENT: EOMI, PERRLA Respiratory system: Decreased air entry bilaterally, more decreased on the right side, no wheeze, no rhonchi, positive crackles bilaterally CVS: S1-S2 positive Abdomen: Soft, nontender, nondistended, positive bowel sounds x4 Extremities: +2 pulses bilaterally radialis/ dorsalis pedis, no cyanosis, +1 pitting edema bilateral lower extremity Neuro: Awake alert oriented to self and place Psych: Flat mood and affect G/U: Positive Bailey Skin: no rashes, warm and dry Lymphatic: no cervical or axillary lymphadenopathy Results & Data Results & Data Vital Signs (Past 12 Hours) Vital Signs Temp Pulse Pulse Resp BP BP Pulse Ox 07/03/22 07:15 80 18 92 07/03/22 07:11 36.5 C 78 19 130/85 93 07/02/22 22:30 07/02/22 21:57 87 07/03/22 01:19 37.0 C 91 H 20 133/92 93 07/03/22 00:35 36.7 C 80 18 119/84 94 07/02/22 23:05 36.6 C 87 18 99/65 L 90 07/02/22 23:35 36.6 C 90 18 115/76 93 07/02/22 23:35 36.6 C 90 18 115/76 93 07/02/22 22:50 36.6 C 89 18 116/79 91 07/02/22 22:50 36.6 C 89 18 116/79 91 07/02/22 22:35 36.7 C 86 20 126/82 90 07/02/22 22:16 36.7 C 86 20 126/82 90 O2 Del Method O2 Flow Rate 07/03/22 07:15 Room Air 07/03/22 07:11 Room Air 07/02/22 22:30 Room Air 07/02/22 21:57 07/03/22 01:19 0 07/03/22 00:35 0 07/02/22 23:05 07/02/22 23:35 0 07/02/22 23:35 0 07/02/22 22:50 0 07/02/22 22:50 0 07/02/22 22:35 07/02/22 22:16 Laboratory Results 07/02/22 06:45 07/02/22 08:48 PG Care Time/CCT Total # of Minutes Spent Total Time Spent with Patient: Total time spent is greater than 50% in coordination of care (as documented) at patient's floor/unit and/or counseling patient: Coding Level of Care Code 35699 SUB INP/OBS CARE 3/50MIN Diagnoses Mesothelioma C45.9 Failure to thrive in adult R62.7 Anemia D64.9 Acute hypercapnic respiratory failure J96.02 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
[2022-07-03] MEDS: FOLIC ACID 1 MG TAB PO SCH (09:44)
[2022-07-03] MEDS: CHOLECALCIFEROL 5,000 UNITS 125 MCG TAB PO SCH (09:44)
[2022-07-03] MEDS: guaiFENesin 600 MG TABCR PO SCH ×2 (09:44→19:59)
[2022-07-03] MEDS: TAMSULOSIN HCL 0.4 MG CAP PO SCH (09:45)
[2022-07-03] MEDS: MULTIVITAMIN TAB PO SCH (09:45)
[2022-07-03] MEDS: CYANOCOBALAMIN (B-12) 500 MCG TABLET PO SCH (09:45)
[2022-07-03] MEDS: DOCUSATE SODIUM/SENNA 50/8.6MG TAB PO SCH (09:46)
[2022-07-03] MEDS: FUROSEMIDE 40 MG/4 ML VIAL IV SCH (09:49)
[2022-07-03] MEDS: LACTULOSE SYRUP 10 GM/15 ML BTL 960 ML PO SCH ×2 (09:50→20:09)
[2022-07-03 10:12] LABS: Basophils # (auto) 0.01 K/uL (0-0.2); Basophils % (auto) 0.1 %; Eosinophils # (auto) 0.01 K/uL (0-0.50); Eosinophils % (auto) 0.1 %; Hematocrit (blood only) 28.8 % (42.0-52.0); Hemoglobin 8.5 g/dl (14.0-18.0); Immature Granulocytes # (auto) 0.22 K/uL (0.01-0.20); Immature Granulocytes % (auto) 2.8 %; Lymphocytes % (auto) 11.6 %; Mean Corpuscular Hemoglobin 22.8 pg (25.0-34.0); Mean Corpuscular Hgb Conc 29.5 g/dL (32.0-36.0); Mean Corpuscular Volume 77.4 fL (80.0-100.0); Mean Platelet Volume 8.8 fL (9.4-12.4); Monocytes # (auto) 0.56 K/uL (0.11-0.59); Monocytes % (auto) 7.2 %; Neutrophils # (auto) 6.07 K/uL (1.40-6.50); Neutrophils % (auto) 78.2 %; Platelet Count 191 K/uL (130-400); RDW Coefficient of Variation 19.1 % (11.5-14.5); RDW Standard Deviation 53.7 fL (36.4-46.3); Red Blood Count 3.72 M/uL (4.70-6.10); White Blood Count 7.77 K/ul (4.8-10.8)
[2022-07-03 10:32] LABS: BUN Creatinine Ratio 14.9 (10-20); Est GFR (African American) 61.8 ml/min; Est GFR (Non-African American) 53.3 ml/min; Magnesium 1.7 mg/dl (1.7-2.4); Potassium 4.4 mmol/L (3.5-5.1)
--- NOTE | 2022-07-03 13:57 | Hospitalist Progress Note ---
Date of Service July 03, 2022 Assessment & Plan (1) Acute hypercapnic respiratory failure: Plan: History of metastatic mesothelioma, COPD and right pleural effusion which are contributing to acute respiratory failure Diffuse pleural thickening throughout the right hemithorax and consolidation of the right mid and lower lung with interstitial infiltrate throughout the remaining part of the right upper lung Has been on 2 L of oxygen to maintain saturation Has been getting empiric antibiotic to cover possible infection Appreciate pulmonary input and recommendation Mild shortness of breath at rest and saturating normally on room air Remains stable Pleural effusions Not much fluid to be drained Will monitor As above Anemia of chronic disease Complicated by acute renal impairment We will give 1 unit of blood transfusion Hemoglobin went up to 8.5 following 1 unit of blood transfusion (2) 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: Plan: Has metastatic malignant mesothelioma Received immunotherapy in [place] as palliative Discussed with the patient and he wants to be a full code We will discuss with the director of cardiopulmonary services on discharge He is aware about the diagnosis and wants everything to be done to make him better if possible Discussed about palliative care involvement-the patient declined to have any palliative care evaluation now We will continue current management with full code (3) Malignant pericardial effusion: Plan: ShortNoted to have malignant pericardial effusion in [place] status post drainage on 06/07/2022 Echocardiogram of the heart did not show significant pericardial fluid now Has been having short runs of VT likely secondary to involvement of the heart with malignancy We will continue supportive care Appreciate cardiology input and recommendation Echo of the heart showed-mild concentric LVH, no regional wall motion abnormalities, LV is hyperdynamic, EF was noted to be more than 70%, right ventricle is normal size and function, grade 1 diastolic dysfunction, no significant valvular disease, aortic root is moderately enlarged diameter of 4.7 cm, small circumferential pericardial effusion is present, there is circumferential echodensity in the pericardial space consistent with fibrinous strands or coagulum, no cardiac tamponade. Monitor in the telemetry unit Has had runs of V. tach yesterday-we will monitor electrolytes and correct it if needed Blood pressure remains on the lower side at 97/66 (4) Anemia: Plan: Hemoglobin is running around 7.1 We will monitor and give blood transfusion as needed if it is below 7 Hemoglobin is dropped to 6.7 We will give him 1 unit of blood transfusion As above (5) Chronic diastolic heart failure: Plan: History of chronic diastolic heart failure No evidence of overt heart failure now (6) COPD (chronic obstructive pulmonary disease): Plan: COPD is complicating the current management and presentation (7) COVID-19 virus infection: Plan: Noted to have COVID-19 virus infection with history of documented coronavirus on 05/21/2022 No acute respiratory symptoms and does not require any treatment for that . Saturating normally on room air Chronic cancer pain-stable now Hypothyroidism-give supplement DVT prophylaxis- Lovenox CODE STATUS Discussed with the patient in [place] Wanted to have a full code and does not want to have any palliative care evaluation now Admission and Anticipated Discharge Date Admission Date: June 30, 2022 Subjective 07/01/2022 The patient was seen and examined in telemetry unit in presence of the daughter He has been generally weak and has minimal cough and minimal shortness of breath Denies any other significant symptoms He definitely wants to be a full code 07/02/2022 The patient was seen and examined in telemetry unit He has been stable and complains to have some pain at the infusion site Has minimal shortness of breath at rest but denies any chest pain, palpitation, abdominal pain, nausea and or vomiting He still wants everything to be done to make him better 07/03/2022 The patient was seen and examined in telemetry unit He has been stable and has cough without any phlegm, Mild to moderate shortness of breath and generalized weakness Review of Systems Review of Systems: All systems reviewed and are unremarkable except as noted below Respiratory: Mild to moderate shortness of breath at rest Physical Exam Physical Exam: Lying in bed with mild shortness of breath and cough Constitutional: well developed, well nourished, + ill appearing and + obese Eyes: PERRL, conjunctivae normal, anicteric sclerae ENMT: external ear and nose normal, oropharynx normal Neck: trachea midline, no thyromegaly Respiratory: + respiratory distress (Moderate distress at rest) Auscultation: + diminished lung sounds, + crackles (Bilateral crackles more on the right than the left side) and + wheezes Cardiovascular: Rate/Rhythm: regular rate and regular rhythm; not tachycardic Heart Sounds: normal S1, normal S2 and + murmur Extremities: + edema (1+ edema bilaterally) Gastrointestinal (Abdomen): Inspection/Auscultation: + abdomen distended and normal bowel sounds Percussion/Palpation: abdomen soft; abdomen nontender Musculoskeletal: No acute arthritis involving any joint Neurologic: normal touch/pain/proprioception and moves all extremities; no focal motor deficits Lymphatic: no cervical or axillary lymphadenopathy Results & Data Results & Data Vital Signs (Past 12 Hours) Vital Signs Temp Pulse Pulse Resp BP BP Pulse Ox 07/03/22 11:34 36.5 C 81 20 97/66 L 07/03/22 11:00 79 18 95 07/03/22 10:43 07/03/22 08:48 88 07/03/22 07:15 80 18 92 07/03/22 07:11 36.5 C 78 19 130/85 93 O2 Del Method 07/03/22 11:34 Room Air 07/03/22 11:00 Room Air 07/03/22 10:43 Room Air 07/03/22 08:48 07/03/22 07:15 Room Air 07/03/22 07:11 Room Air Laboratory Results Short CBC 07/03/22 Range/Units 09:49 WBC 7.77 (4.8-10.8) K/ul Hgb 8.5 L (14.0-18.0) g/dl Hct 28.8 L (42.0-52.0) % Plt Count 191 (130-400) K/uL BMP 07/03/22 09:49 Sodium 139 Potassium 4.4 Chloride 100 Carbon Dioxide 33 H BUN 20 Creatinine 1.34 Glucose 86 Calcium 8.0 L Medications Administered Current Inpatient Medications Acetaminophen (Acetaminophen 325 Mg Tab) 650 mg PO Q4H PRN PRN Reason: Pain or Fever Stop: 07/30/22 21:48 Last Admin: 07/01/22 22:07 Dose: 650 mg Albuterol (Albuterol Hfa 8 Gm Inhaler) 2 puffs INH 6XD PRN PRN Reason: Shortness Of Breath Or Wheezin Stop: 07/30/22 21:48 Albuterol (Albut/Ipratrop 3mg/0.5mg Neb 3 Ml Vial) 3 ml NEB Q4R PRN; Protocol PRN Reason: Shortness Of Breath Or Wheezing Stop: 07/30/22 21:48 Albuterol (Albut/Ipratrop 3mg/0.5mg Neb 3 Ml Vial) 3 ml NEB QIDR JONATHAN; Protocol Stop: 07/31/22 06:59 Last Admin: 07/03/22 10:59 Dose: 3 ml Benzonatate (Benzonatate 100 Mg Capsule) 100 mg PO TID PRN PRN Reason: Cough Stop: 07/31/22 21:26 Last Admin: 07/02/22 08:49 Dose: 100 mg Cyanocobalamin (Cyanocobalamin (B-12) 500 Mcg Tablet) 1,000 mcg PO QAM [facility] Stop: 07/31/22 08:59 Last Admin: 07/03/22 09:45 Dose: 1,000 mcg Enoxaparin Sodium (Enoxaparin Inj 40 Mg/0.4 Ml Syr) 40 mg SQ Q24H [facility] Stop: 07/30/22 21:59 Last Admin: 07/02/22 21:12 Dose: Not Given Folic Acid (Folic Acid 1 Mg Tab) 1 mg PO QAM [facility] Stop: 07/31/22 08:59 Last Admin: 07/03/22 09:44 Dose: 1 mg Furosemide (Furosemide 40 Mg/4 Ml Vial) 40 mg IV DAILY [facility] Stop: 07/31/22 08:59 Last Admin: 07/03/22 09:49 Dose: 40 mg Guaifenesin (Guaifenesin 600 Mg Tabcr) 1,200 mg PO Q12 [facility] Stop: 08/01/22 20:59 Last Admin: 07/03/22 09:44 Dose: 1,200 mg Piperacillin Sod/Tazobactam (Sod 4.5 gm/ Dextrose) 120 mls @ 30 mls/hr IV Q8H [facility]; Protocol Stop: 07/08/22 03:59 Last Admin: 07/03/22 12:16 Dose: 30 mls/hr Doxycycline Hyclate 100 mg/ (Dextrose) 110 mls @ 50 mls/hr IV Q12H [facility] Stop: 07/07/22 22:59 Last Infusion: 07/03/22 12:10 Dose: Infused Dexamethasone 6 mg/ Syringe 1.5 mls @ 1 mls/min IV Q24H [facility] Stop: 07/12/22 15:44 Last Admin: 07/02/22 17:30 Dose: 1 mls/min Lactulose (Lactulose Syrup 10 Gm/15 Ml Btl 960 Ml) 10 gm PO BID [facility] Stop: 07/30/22 21:48 Last Admin: 07/03/22 09:50 Dose: Not Given Levothyroxine Sodium ([facility]othyroxine S[facility] 100 [facility]g [facility]t) [facility]: 07/31/22 06:29 Last Admin: 07/03/22 06:15 Dose: 100 mcg Mirtazapine (Mirtazapine Tab 15 Mg Tab) 15 mg PO [facility] Stop: 07/30/22 21:48 Last Admin: 07/02/22 21:03 Dose: 15 mg Multivitamins (Multivitamin Tab) 1 tab PO [facility] Stop: 07/31/22 08:59 Last Admin: 07/03/22 09:45 Dose: 1 tab Nitroglycerin (Nitroglycerin Sl 0.4 Mg/Tab Tab) 0.4 mg SL UD PRN PRN Reason: Chest Pain Stop: 07/30/22 21:48 Oxycodone HCl (Oxycodone Hcl Ir 5 Mg Tab (Immediate Release)) 5 mg PO Q4H PRN PRN Reason: Pain Stop: 07/14/22 21:48 Last Admin: 07/03/22 11:13 Dose: 5 mg Polyethylene Glycol (Polyethylene (Miralax) 17 Gm Pack) 17 gm PO DAILY PRN PRN Reason: Constipation Stop: 07/30/22 21:48 Senna/Docusate Sodium (Docusate Sodium/Senna 50/8.6mg Tab) 1 tab PO [facility] Stop: 07/31/22 08:59 Last Admin: 07/03/22 09:46 Dose: 1 tab Sennosides (Senna 8.6 Mg Tab) 8.6 mg PO [facility] Stop: 07/30/22 21:48 Last Admin: 07/02/22 21:03 Dose: 8.6 mg Tamsulosin HCl (Tamsulosin Hcl 0.4 Mg Cap) 0.4 mg PO [facility] Stop: 07/31/22 08:59 Last Admin: 07/03/22 09:45 Dose: 0.4 mg Vitamin D (Cholecalciferol 5,000 Units 125 Mcg Tab) 5,000 units PO [facility] Stop: 07/31/22 08:59 Last Admin: 07/03/22 09:44 Dose: 5,000 units
[2022-07-03] MEDS ORDERED: AMIODARONE / D5W 360 MG/200 ML BAG IV ONE (15:02)
[2022-07-03] MEDS ORDERED: 0.2 MICRON FILTER SET 1 EACH IV ONE (15:02)
[2022-07-03] MEDS ORDERED: METOPROLOL TARTRATE 1 MG/ML VIAL IV STA (15:06)
--- NOTE | 2022-07-03 15:12 | Cardiology Progress Note ---
Date of Service July 03, 2022 Assessment & Plan (1) Mesothelioma: (2) Acute hypercapnic respiratory failure: (3) NSVT (nonsustained ventricular tachycardia): Plan: -Patient asymptomatic with exception of confusion. -electrolytes stable. -EKG reveals SR without ST changes. -start metoprolol 2.5 mg IV x 1. -Use of beta blockers limited by baseline low BP. -Will start amiodarone infusion, no loading bolus. -Case discussed with Dr Judd. -Pt full code, per his wishes as Dr Judd had discussed with the patient. Prognosis is poor. Admission and Anticipated Discharge Date Admission Date: June 30, 2022 Subjective Patient reassessed per the request of nursing and Dr Judd for frequent episodes of nonsustained ventricular tachycardia, with recent episodes 30 seconds in duration. Physical Exam Constitutional: + ill appearing Respiratory: Auscultation: + diminished lung sounds Cardiovascular: RRR, no murmur, no edema Gastrointestinal (Abdomen): normal bowel sounds, soft, nontender, no hepatosplenomegaly Neurologic: PERRL, EOMI, accommodation nl, no face palsy, no dysarthria Results & Data Vital Signs (Past 12 Hours) Vital Signs Temp Pulse Pulse Resp BP BP Pulse Ox 07/03/22 14:54 91 H 18 109/74 97 07/03/22 11:34 36.5 C 81 20 97/66 L 07/03/22 11:00 79 18 95 07/03/22 10:43 07/03/22 08:48 88 07/03/22 07:15 80 18 92 07/03/22 07:11 36.5 C 78 19 130/85 93 O2 Del Method 07/03/22 14:54 Room Air 07/03/22 11:34 Room Air 07/03/22 11:00 Room Air 07/03/22 10:43 Room Air 07/03/22 08:48 07/03/22 07:15 Room Air 07/03/22 07:11 Room Air Laboratory Results CBC 07/03/22 Range/Units 09:49 WBC 7.77 (4.8-10.8) K/ul RBC 3.72 L (4.70-6.10) M/uL Hgb 8.5 L (14.0-18.0) g/dl Hct 28.8 L (42.0-52.0) % Plt Count 191 (130-400) K/uL Neut # (Auto) 6.07 (1.40-6.50) K/uL Lymph # (Auto) 0.90 L (1.2-3.4) K/uL [place] # (Auto) 0.56 (0.11-0.59) K/uL Eos # (Auto) 0.01 (0-0.50) K/uL Baso # (Auto) 0.01 (0-0.2) K/uL Comprehensive Metabolic Panel 07/03/22 Range/Units 09:49 Sodium 139 (136-145) mmol/L Potassium 4.4 (3.5-5.1) mmol/L Chloride 100 (98-107) mmol/L Carbon Dioxide 33 H (21-32) mmol/L BUN 20 (6-23) mg/dl Creatinine 1.34 (0.6-1.4) mg/dl Glucose 86 (70-99(Fasting)) mg/dl Calcium 8.0 L (8.6-10.3) mg/dl Intake and Output 07/03/22 07/03/22 07/03/22 06:59 14:59 22:59 Intake Total 540 / 890 430 / 430 Output Total 350 / 1750 1451 / 1451 Balance 190 / -860 -1021 / -1021 Intake: IV 230 / 580 230 / 230 Doxycycline Hyclate 100 mg In 110 / 220 110 / 110 Dextrose 5% 100 ml @ 50 mls/hr IV Q12H [facility] Rx#:[id number] Piperacillin/Tazobactam 4.5 gm 120 / 360 120 / 120 In Dextrose 5% 100 ml @ 30 mls/ hr IV Q8H [facility] Rx#:[id number] Oral 200 / 200 Intake (Blood Product) Amt 310 / 310 Packed Cells, Leukoreduced 310 / 310 Unit [id number] Output: Stool 1 / Urine Amount (Catheter) 350 / 1750 1450 / 1450 Bailey/Indwelling 350 / 1750 1450 / 1450 Other: Weight 97.1 kg Weight Measurement Method Built in [facility]
[2022-07-03] MEDS: dexAMETHasone 6 MG in SYRINGE 0 ML IV SCH (15:25)
[2022-07-03] MEDS: MIRTAZAPINE TAB 15 MG TAB PO SCH (19:59)
[2022-07-03] MEDS: SENNA 8.6 MG TAB PO SCH (20:01)
--- NOTE | 2022-07-03 20:58 | Electrocardiogram Report ---
Test Reason : Blood Pressure : / mmHG Vent. Rate : 085 BPM Atrial Rate : 085 BPM P-R Int : 160 ms QRS Dur : 078 ms QT Int : 354 ms P-R-T Axes : 027 063 100 degrees QTc Int : 421 ms Poor data quality, interpretation may be adversely affected Normal sinus rhythm Low voltage QRS Nonspecific T wave abnormality Abnormal ECG When compared with ECG of 30-JUN-2022 16:59, Premature ventricular complexes are no longer Present Minimal criteria for Anterior infarct are no longer Present Confirmed by Bradley Coleman ([id number]) on 07/03/2022 8:58:10 PM Referred By: [facility] Confirmed By:Bradley Coleman
[2022-07-03] MEDS: AMIODARONE / D5W 360 MG/200 ML BAG IV SCH (21:15)
[2022-07-03] MEDS: ENOXAPARIN INJ 40 MG/0.4 ML SYR SQ SCH (21:17)
[2022-07-04] MEDS: DOXYCYCLINE HYCLATE 100 MG in DEXTROSE 5% 100 ML IV SCH ×2 (00:04→12:00)
[2022-07-04] MEDS: oxyCODONE HCL IR 5 MG TAB (IMMEDIATE RELEASE) PO PRN ×5 (02:34→21:56)
--- NOTE | 2022-07-04 03:58 | Communication Note ---
Date of Service: July 04, 2022 Notified of patient refusal to wear gambling monitor because "there is nothing wrong with his heart." Patient refused to comply with recommendations despite education regarding need for cardiac monitoring given IV amiodarone infusion for NSVT. Hold IV amiodarone for now given safety concerns. Consider palliative care consultation to discuss goals of care with patient.
[2022-07-04] MEDS: PIPERACILLIN/TAZOBACTAM 4.5 GM in DEXTROSE 5% 100 ML IV SCH ×3 (04:13→20:08)
[2022-07-04] MEDS: LEVOTHYROXINE SODIUM 100 MCG TABLET PO SCH (06:01)
[2022-07-04] MEDS: ALBUT/IPRATROP 3MG/0.5MG NEB 3 ML VIAL NEB SCH ×4 (07:01→19:14)
[2022-07-04 07:02] LABS: Basophils # (auto) 0.02 K/uL (0-0.2); Basophils % (auto) 0.2 %; Eosinophils # (auto) 0.01 K/uL (0-0.50); Eosinophils % (auto) 0.1 %; Hematocrit (blood only) 27.7 % (42.0-52.0); Hemoglobin 8.4 g/dl (14.0-18.0); Immature Granulocytes # (auto) 0.36 K/uL (0.01-0.20); Lymphocytes # (auto) 1.05 K/uL (1.2-3.4); Lymphocytes % (auto) 11.8 %; Mean Corpuscular Hemoglobin 22.7 pg (25.0-34.0); Mean Corpuscular Hgb Conc 30.3 g/dL (32.0-36.0); Mean Corpuscular Volume 74.9 fL (80.0-100.0); Mean Platelet Volume 9.4 fL (9.4-12.4); Monocytes # (auto) 0.63 K/uL (0.11-0.59); Monocytes % (auto) 7.1 %; Neutrophils # (auto) 6.86 K/uL (1.40-6.50); Neutrophils % (auto) 76.8 %; Platelet Count 228 K/uL (130-400); RDW Coefficient of Variation 19.3 % (11.5-14.5); RDW Standard Deviation 52.1 fL (36.4-46.3); White Blood Count 8.93 K/ul (4.8-10.8)
[2022-07-04 07:24] LABS: Albumin Globulin Ratio 0.7 (0.9-2); Albumin Level 2.3 gm/dl (3.4-5.0); BUN Creatinine Ratio 16.9 (10-20); Bilirubin,Total 0.2 mg/dl (0.2-1.0); Calcium 7.9 mg/dl (8.6-10.3); Creatinine Clr Calc Pharmacy 58.6 ml/min; Est GFR (African American) 60.7 ml/min; Est GFR (Non-African American) 52.3 ml/min; Globulin 3.2 gm/dl (2.5-4.0); Magnesium 1.6 mg/dl (1.7-2.4); Potassium 4.3 mmol/L (3.5-5.1); Total Protein 5.5 gm/dl (6.0-8.3)
[2022-07-04] MEDS: CYANOCOBALAMIN (B-12) 500 MCG TABLET PO SCH (07:47)
[2022-07-04] MEDS: FOLIC ACID 1 MG TAB PO SCH (07:48)
[2022-07-04] MEDS: MULTIVITAMIN TAB PO SCH (07:48)
[2022-07-04] MEDS: DOCUSATE SODIUM/SENNA 50/8.6MG TAB PO SCH (07:48)
[2022-07-04] MEDS: TAMSULOSIN HCL 0.4 MG CAP PO SCH (07:48)
[2022-07-04] MEDS: CHOLECALCIFEROL 5,000 UNITS 125 MCG TAB PO SCH (07:48)
[2022-07-04] MEDS: guaiFENesin 600 MG TABCR PO SCH ×2 (07:48→20:11)
[2022-07-04] MEDS: FUROSEMIDE 40 MG/4 ML VIAL IV SCH (07:52)
[2022-07-04] MEDS: LACTULOSE SYRUP 10 GM/15 ML BTL 960 ML PO SCH ×2 (07:53→20:12)
--- NOTE | 2022-07-04 08:57 | Pulmonology Progress Note ---
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 It is unclear why he was actually brought to the emergency room and admitted here. Apparently according to the bedside nurse, the family was unhappy with the care that he was receiving and wanted him admitted to the facility to work on placement at an alternative institution. His CT scan shows diffuse pleural thickening. CT chest 06/30/2022 personally reviewed: Bilateral pleural effusion, left greater than the right Multiple pulmonary nodules appreciated bilaterally Right-sided pleural thickening with elevated right hemidiaphragm Consolidative process versus pulmonary mass on the right side Minimal mediastinal lymphadenopathy The consolidative process in the right upper lobe is new compared to CAT scan do ne 06/04/2022 2D echo 07/01/2022: EF greater than 70%, aortic root moderately enlarged with diameter 4.7 cm small circumferential pericardial effusion, grade 1 diastolic dysfunction, RV normal in size and function ABG 07/01/2022: 7.31/65/61 on room air --> 7.44/51/59 on room air -- Acute hypercapnic respiratory failure Likely from underlying COPD and restrictive lung disease from encasing tumour along with consolidative process/pneumonia on the right side Avoid medication which can suppress respiratory drive Do not over oxygenate the patient, keep O2 saturation between 90-92% -- Pleural effusion Bilateral, left greater than right Likely malignant Diastolic heart failure might also be playing a role Procalcitonin 0.16 Patient is not requiring any oxygen and is not in any respiratory distress, no plan for any intervention right now -- Advanced mesothelioma 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 -- COVID positive test Patient originally tested positive on 05/21/2022 at [facility] along with other family members COVID-19 PCR positive on 06/30/2022 at the time of presentation to the hospital Influenza A/B, RSV negative BNP 530 There is any significant worsening on the CAT scan of the chest at presentation compared to before, thus dexamethasone was added Plan: Patient CT chest from earlier last month which was done in [place] personally reviewed. On the latest CT chest patient does seem to have dense consolidative process in the right upper lobe Pneumonia as well as history of COVID could be playing a role. Complete the course of dexamethasone for total of 10 days Palliative care has been consulted Patient does have bouts of delirium where he refuses all the treatment. Continue with flutter valve, hypertonic saline to be added Any opioid medication will suppress the respiratory drive and cause hypercapnia. Need to keep that in mind. Unfortunately patient is noncompliant with BiPAP Case was discussed with RN and Dr. Guido Please note the above document was generated using voice recognition software. It may contain grammatical, syntax or spelling errors.Any formal questions or concerns about the content, text or information contained within the body of this dictation should be directly addressed to the provider for clarification. Admission and Anticipated Discharge Date Admission Date: June 30, 2022 Subjective Patient seen and examined at bedside. Overnight patient also developed V. tach and has been started on amiodarone drip Patient does have bouts of delirium on and off where he refuses treatment He was saturating 90-91% on room air at the time of examination Denies any chest pain, was grumpy today. no headache Review of Systems Review of Systems: All systems reviewed & are unremarkable except as noted in Subjective Physical Exam Physical Exam: Constitutional: No acute distress HEENT: EOMI, PERRLA Respiratory system: Decreased air entry bilaterally, more decreased on the right side, no wheeze, no rhonchi, positive crackles bilaterally CVS: S1-S2 positive Abdomen: Soft, nontender, nondistended, positive bowel sounds x4 Extremities: +2 pulses bilaterally radialis/ dorsalis pedis, no cyanosis, +1 pitting edema bilateral lower extremity Neuro: Awake alert oriented to self and place Psych: Flat mood and affect G/U: Positive Bailey Skin: no rashes, warm and dry Lymphatic: no cervical or axillary lymphadenopathy Results & Data Results & Data Vital Signs (Past 12 Hours) Vital Signs Temp Pulse Pulse Resp BP Pulse Ox O2 Del Method 07/04/22 07:43 36.8 C 89 20 107/72 91 Room Air 07/04/22 08:09 90 07/04/22 07:02 88 17 90 Room Air 07/03/22 22:00 81 07/03/22 23:02 36.5 C 74 20 116/79 92 Room Air 07/03/22 21:30 Room Air Laboratory Results 07/04/22 06:24 07/04/22 06:24 PG Care Time/CCT Total # of Minutes Spent Total Time Spent with Patient: Total time spent is greater than 50% in coordination of care (as documented) at patient's floor/unit and/or counseling patient: Coding Level of Care Code 52507 SUB INP/OBS CARE 2/35MIN Diagnoses Mesothelioma C45.9 Failure to thrive in adult R62.7 Anemia D64.9 Acute hypercapnic respiratory failure J96.02 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
[2022-07-04] MEDS ORDERED: MAGNESIUM SULFATE / D5W 1 GM/100 ML BAG IV ONE (09:07)
[2022-07-04] MEDS: PANTOprazole 40 MG TAB PO SCH ×2 (09:57→20:12)
--- NOTE | 2022-07-04 12:50 | Palliative Care Consultation ---
Date of Consultation July 04, 2022 Assessment & Plan (1) Palliative care by specialist: Met with pt/family. Provided overview of Palliative Medicine, a subspecialty that provides specialized medical care for people living with a serious illness by offering a focus on quality of life. Palliative Medicine is often conflated with hospice: I advised patient/family that Palliative and hospice can be partners but we are not the same. It is important to understand the difference so that we may be informed, and not afraid. Palliative Medicine works to improve QOL through reduction of symptom burden/more control over their illness, for both the patient and family. Palliative medicine clinicians are board certified, specially-trained and another member of the patient's medical care team. We often provide an extra layer of support because our care is based on the needs of the patient, not the prognosis; as such, it's appropriate at any age/advancing stage of a serious illness and can be provided along with curative treatment. Palliative Medicine clinicians are also trained in advanced communication methodologies, to facilitate complex discussions about advanced illness planning, which are needed to help assure that the treatment choices match the patient's goals, aka delivering Goal Concordant care. Finally, we discussed that hospice is a visiting nurse service that focuses on care delivered at the very end of life for patients with terminal illness, with life expectancy less than 6 month. We discussed that cancer patients experience significant symptom and psychosocial burden for which the early integration of supportive oncology with palliative medicine (early findings from the research of Isa) help address a growing need to manage patients comprehensively, with an emphasis on symptom control, nutritional and psychosocial support, and pharmaceutical review. Palliative care consultation in patients with advanced cancer is not only associated with an improvement in the quality of oncology care, but also a reduction in downstream healthcare utilization. In Carl et al 2017, when the automatic palliative medicine consult was triggered by specific oncology criteria, 30-day readmission rates and use of chemotherapy after discharge declined, whereas hospice referrals and uptake of support services post- discharge increased. Patients with advanced cancer admitted to an acute care hospital often have short life expectancies and high morbidity - for these patients, the integration of palliative care has improved symptom burden, reduced patient and caregiver distress, increased referral to hospice, and improved outcomes. (2) Advanced care planning/counseling discussion: 60min ACP with pt and daughters x2. for the last 15min we were joined by Dr Guido. Advance illness planning conversations are conducted to review goals and expectations, support shared decision-making, and engage in disease specific advance care planning. This type of advance care planning is sometimes referred to as 'preparedness planning. It is used to review the risks and benefits of offered therapy, elicit and deepen understanding of the underlying illness and therapeutic options, ensure adequate psychosocial support, address existential concerns and coping, and engage in end-of-life planning. Preparedness planning is not meant to replace informed consent discussions. Palliative medicine plays a role in the process of deepening a patients understanding of this specific medical intervention and ensuring this treatment aligns with their goals of care remains a central tenet of the planning conversation. We discussed code status specifically with attention to CPR survival: Only about 10% of patients who have [id number] sudden cardiac arrest survive to hospital discharge, with many survivors having neurologic impairment. This rate is even lower among patients with serious coexisting conditions, ie chance of survival to hospital discharge for in-hospital CPR in older people is low to moderate (15%) and decreases withage, comorbidities, performance status and frailty: for pts > 70 yo, more than half of the patients who initially survived resuscitation in the hospital before hospital discharge. The pooled survival to discharge after in-hospital CPR was 18% for patients between 70 and 79 years old, 15% for patients between 80 and 89 years old and 11% for patients of 90 years and older. (Adalid LICEA, Chato LJ, Navneet F, et al. Trends in short- and long-term survival among [id number] cardiac arrest patients alive at hospital arrival. Circulation 2014;130:3797-9668. AND Amie C, Bakari T, Gricel R, et al. Performance of clinical risk scores to predict mortality and neurological outcome in cardiac arrest patients. Resuscitation 2019;136:21-29.) In the fall, he told family he does not not want to pursue further care and enrolled in hospice. She states that at some point while on hospice, he abruptly changed his mind. He then demanded to pursue cancer directed therapies as a result he then underwent further evaluation which included biopsy and imaging and was ultimately seen by medical oncology during the January admission at [facility]. He is seen outpatient oncology clinic and received ipilimumab/nivolumab day 1 cycle 1 on 05/01 and had further treatment postponed due to COVID PNA/resp failure. Patient presents with worsening respiratory failure, cardiac dysfunction/arrhythmia, he has not been a candidate to resume ipilimumab/nivolumab therapy. Throughout this admission, patient has been consistently inconsistent in what he vocalizes wanting for himself and goals of care. In recent days he has refused cardiac monitoring, lab work, amiodarone, he had continued to demand to remain a full code, desired treatment aggressively for medical issues and continues to express his intention to continue chemotherapy. I reviewed all of the above concerns with patient. I shared with him that the medical reality of his situation at this junction is that he is too weak and too frail to tolerate further cancer directed therapy especially in the setting of recurrent hospital admissions, declining performance status and progressive multisystem failure. Patient refused to accept this. He states "all you just stand together in the same order telling me you are not can to help me and there is nothing you can do for me but I want to be treated." I reviewed with him the rationale for medical recommendations at this junction. I asked him where he saw himself from a care perspective as well as at the end of his life. He tells me he would not want to be a snf again and that there is no care being delivered in that setting. He states he would prefer to be home with his family but has difficulty reconciling the complexity of his medical needs my create a situation where his care needs cannot be met by his family throughout this discussion, his daughters remain supportive and reassurance. Yvonne was very honest about how complex his physical medical needs have become and how she could not handle all of those needs plus the multiple medical appointments he had on her own. Her sister lives in [facility], this impedes her ability to help care for patient on a daily basis. I advised patient that we are at the junction where we could continue to try and control the symptoms he was experiencing and try to control things like a worsening of an infection or uncontrolled arrhythmia for as long as possible but we would not be able to cure his cancer. I reviewed with him that he has an incurable pulmonary cancer in addition to his chronic medical conditions from a cardiac and pulmonary perspective. I shared with him my concern that his overall inconsistency in his goals and wishes for specific treatments and care during this admission as well as in the history reported by his family for the last 6 to 7 months conveyed concern that he is not potentially decisional and that perhaps his ability to make a well thought out and well-informed decision was hampered by the progression of his multiple medical issues. I advised patient and family that I had requested a formal psychiatry consultation to evaluate his ability for medical decision-making competence. I expressed to him our concerns that should continue on this path of aggressive care including such things as CPR and chemical intubation, but these would be interventions at this point I believe would prolong the dying process but not provide him with any meaningful quality of life or survival benefit. I advised him very clearly and very explicitly that I do not feel he would successfully liberate from the ventilator and return to her prior to admission baseline or he may have been last fall. He has not returned to a prior to admission baseline from either of his last 2 admissions for from his admission in January. His overall performance status has steadily declined in the last 6 to 7 months. When that is taken into consideration along with his multiple hospital admissions, his COVID infection, his weakened immune state, and an incurable advanced cancer the overall context is that of a very serious very end-stage medical illness for which best supportive care with a focus on quality of life, comfort and dignity with good symptom management would be the best recommended standard of care. I encouraged them to further discuss these issues as a family and noted that we would follow-up tomorrow for additional discussion. 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 I do not believe patient at this time has a very consistent decisional capacity. Throughout the course of his admission he has demonstrated consistent inconsistency in a chart review of the last several months indicates the same pattern of behavior. Additionally, he has a worsening performance status, alterations in his mentation, and multiple chronic comorbid illnesses are not curable, reversible or fixable. Would note: CPR and other invasive treatments are sometimes desired no matter how small the benefits and how high the burdens. In these cases, patient preferences should generally be honored, but clinical judgment must still be exercised to maximize benefit and minimize harm. "Doing everything" does not mean everything beyond which there is no medical benefit - this falls into a best interest standard: Do that which will maximize good and limit harm. This requires a heavy dependence on Quality of Life issues. Providers are under no obligation to provide/offer treatments that will not meet the humanistic goals of medicine: to make better or cure. Reviewed my recommendations and reviewed the family meeting as noted above with nursing and primary team. I will follow-up with patient and family tomorrow afternoon for further discussion and ongoing goals of care review. At this time patient declines to change CODE STATUS or make any decisions with regards to his goals of care. He continues to insist on receiving more cancer directed therapy. Thank you for allowing us to participate in the ongoing care of this patient. Please don't hesitate to call or page with any additional concerns. Dr. Hanna Lazo DNP Director, Palliative Care History of Present Illness Reason for Consultation: On 07/04/22 @ 11:43 Sawyer Guido Wrote To Emelia Horta Please address goals of care Attending Physician: Sawyer Guido MD History of Present Illness 71yo male admitted 07/01/22 from [facility] at request of family bc they were unhappy with the care delivery at [facility] and wanted new placement facility. His complex past medical history is significant for metastatic malignant pleural mesothelioma, secondary neoplasm of retroperitoneum, history of chronic diastolic CHF, severe protein energy malnutrition, pleural effusion, history of LEN, history of COPD, history of pericardial tamponade, secondary malignant neoplasm of skin iron deficiency anemia, history of exposure to asbestosis, depression. mesothelioma was dx Jan 2022, treatment began Apr 2022 and in May this was held due to COVID infection. He was admitted 06/06/22 to [facility] and then transferred to [facility] and ar to [facility] 06/19/22. he and family were advised his palliative chemo for mesothelioma is not curatove and they were all advised this is a uniformly fatal disease with life expectancy even with chemotherapy less than 24 months. Admission note of 06/30/22 reports: "Presented to [facility] with a fall when he struck his head on the right side and on presentation was found to be hypotensive with systolic blood pressure in 70s and tachycardic with heart rate in the 110s. Corrigan-imaging studies were negative for traumatic injuries, but showed increased right-sided pleural effusion and pericardial effusion. At that time, his BNP was 1900, potassium was 5.6, creatinine was 2.2, lactate was 2.7, TSH 49, hemoglobin 7.4, procalcitonin 0.33. He was given about 2.2 liters of fluids, vancomycin, and Zosyn and started on norepinephrine and transferred to [facility] for continuation of care in [place]. He was in , mixed hypovolemic- cardiogenic shock. Underwent pericardiocentesis by cardiology on 06/07/2022. Pericardial drain was removed on 06/12/2022 after ensuring there was no reaccumulation. The pericardial effusion was thought due to malignancy, history of metastatic mesothelioma. The patient also had LEN, was thought to be postobstructive and Bailey catheter was placed. The patient was started on Flomax, was supposed to follow up with urology for a voiding trial. Palliative care saw the patient, seen by oncology and there is plan for outpatient followup for continuation of treatment of malignant mesothelioma. Palliative care saw, the patient goals of care were discussed and the patient wants to be full code and to be treated.His thyroid level was 49 and free T4 was 0.6. At discharge, thyroid dose was doubled to 150, but looks like at [facility] he was getting 100 mcg. The patient was transferred to [facility], looks like on 06/19/2022. As per daughter, his pain was not well controlled there and she was not happy with the care and she was wanting to go to a different snf, but also the patient was having lot of cough and having some congestion and short of breath. He was supposed to use oxygen only during nighttime, but the patient is not using currently." His daughter Yvonne is his POA He has been consistently inconsistent with care demands and needs. After my chart review and recommendation to primary team, he is pending formal psych eval for competency. [facility] EMR Link reviewed: * Metastatic mesothelioma- received ipilimumab/nivolumab day 1 cycle 1 on 05/01 and had further treatment postponed due to COVID PNA * He was supposed to have enrollment with [facility] Palliative scheduled for Saturday03/09/22 - unclear if this happens. He was referred to [facility] because he was having so much trouble making his appts. * [facility] records indicate a strong pattern of non adherence and various refusals/cancelled appts/self adjustment of meds or med regimens. * Recommend continuing 10 mg of oxycodone q4hrs prn for moderate to severe pain for his uncontrolled pain * He was also using fentanyl patch 75 every 3 days * Recommend continuing him on 650 mg of acetaminophen q6hrs ATC * Pulmonary Conslt [facility] 02/08/22: Pt was hospitalized from 01/18/22 to 01/26/22 for acute on chronic diastolic HF, he was diuresed. He had a soft tissue bx by surgery from lesion from his back. He was noted to have B12 deficiency as well. He was placed on 2l O2 QHS daily. He is here with his daughters who are also helping with history. He reports discomfort with back pain and has not been sleeping well, he reports the pain being worse this last year. Pain has been present in the last year. He reports a cough with no sputum and also SOB with exertion. He is using O2 QHS prn for SOB. He has chills. He denies any fever, chills, abd pain, NVD or increased LE swelling. He has back pain mildly relieved with tylenol, taking one tablet about every 4 hours though pain returns. 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 * [facility] Biopsy: A. Back, Right upper, Right upper back subcutaneous lesion , excision: Consistent with metastatic mesothelioma, mixed (epithelioid and spindled) type (see comment)Comment: This tumor, located in the subcutis, shows zones of atypical epithelioid to round tumor cells demonstrating a tubuloglandular architecture juxtaposed to zones of tumor cells with spindled morphology embedded in a desmoplastic stroma. The immunophenotype that includes loss of BAP1 expression with positive staining with calretinin, CK5/6, vimentin, D240, CK7 and WT1 (partial) supports the diagnosis. Correlation with the clinical presentation and lung findings is recommended to further characterize this process. This case has also been seen in intradepartmental consultation. CT PE: 01/18/22 FINDINGS: Pulmonary arteries: Normal. No pulmonary emboli. Aorta: Unremarkable. No aortic aneurysm. No aortic dissection. Lungs: Chronic changes of the lung parenchyma with nodularity at the apices and chronic volume loss on the right is again seen. Consolidative changes have increased compared to previous. Pleural spaces: Circumferential pleural thickening has increased in severity compared to previous. Heart: There is mild atherosclerotic calcification of the coronary arteries. Lymph nodes: There are numerous prominent but non-pathologic lymph nodes in the mediastinum. There are no nodes of pathologic dimensions. Bones/joints: The spine demonstrates moderate degenerative changes at multiple levels. Soft tissues: Unremarkable. IMPRESSION: 1. No pulmonary embolus identified. Subsegmental branches at the lung bases demonstrate breathing artifact limiting evaluation of this area. No large central pulmonary embolus identified however. 2. Increasing circumferential pleural thickening on the right with increasing nodularity of the right lung and increased consolidation suggesting progression of disease. [facility] summary 06/19/22 states: HOSPITAL COURSE (focused): Patient was admitted in hospital for pericardial effusion and mixed hypovolemic/cardiogenic shock. Patient underwent pericardiocentesis by Cardiology on 06/07/2022. Pericardial drain was removed on 06/12/2022 after ensuring that there was no reaccumulation. The reason of pericardial effusion was his malignancy. Patient has history of m etastatic mesothelioma and is on palliative immunotherapy. Goals of care discussion was also done during admission including with his daughters with palliative team on board. Patient persistently wanted to pursue disease directed therapy if he can tolerate. Patient can be followed up by palliative care outpatient. Patient also had LEN which was likely postobstructive and Bailey catheter was placed. Patient is started on Flomax. Patient can be followed up with urology for voiding trial and removal of Bailey catheter. Patient was followed by palliative care and adjustment of medication for symptom management was done. Patient also was seen by Oncology and they will follow-up outpatient for continuation of treatment for malignant mesothelioma. Patient had PT OT evaluation and ultimately patient was discharged to snf. He has cancelled several appointments with OP oncology, urology and palliative med at [facility] Medications, interventions or therapies. 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 He does not offer a consistent or rational explanation for these refusals. He is seen at bedside together with his daughters. His daughter, Yvonne, is his medical decision-maker/surrogate. She states that until recently ([facility] admission) patient was living with her and her 8-year-old son in their home in [facility] [place] [facility]. She states that patient's medical needs were becoming more complicated and difficult for her to manage while also trying to juggle work, parenting, household tasks. She states that for time of approximately 1 month last fall, patient was actually enrolled in hospice. He then abruptly decided to revoke hospice and stated he wanted to pursue cancer directed therapy which ultimately led to the diagnostic work-up in January and immunotherapy that started first dose cycle 1 in April 2022. Unfortunately he never made it past the first dose of immunotherapy due to his COVID-related respiratory failure and subsequent discharged to skilled rehab. Allergies Allergy/AdvReac Type Severity Reaction Status Date / Time No Known Allergies Allergy Unverified 06/30/22 19:15 Home Medications Medication Instructions Recorded Confirmed Type albuterol sulfate 90 mcg/actuation 2 puff inhalation 6XD PRN 06/30/22 06/30/22 History aerosol inhaler (Ventolin HFA) Shortness Of Breath Or Wheezing cholecalciferol (vitamin D3) 125 125 mcg PO QAM 06/30/22 06/30/22 History mcg (5,000 unit) capsule cyanocobalamin (vitamin B-12) 1,000 mcg PO QAM 06/30/22 06/30/22 History 1,000 mcg tablet folic acid 1 mg tablet 1 mg PO QAM 06/30/22 06/30/22 History guaifenesin 600 mg tablet, 600 mg PO Q12H 06/30/22 06/30/22 History extended release 12 hr lactulose 10 gram/15 mL oral 15 ml PO BID 06/30/22 06/30/22 History solution levothyroxine 100 mcg tablet 100 mcg PO DAILYBB 06/30/22 06/30/22 History mirtazapine 15 mg tablet 15 mg PO HS 06/30/22 06/30/22 History multivitamin 1 tab PO QAM 06/30/22 06/30/22 History naloxone 4 mg/actuation nasal spray 1 spray intranasal .UD PRN Opioid 06/30/22 06/30/22 History Overdose ondansetron 8 mg disintegrating 8 mg PO Q8H PRN Nausea 06/30/22 06/30/22 History tablet oxycodone 10 mg tablet 10 mg PO Q4H PRN Pain 06/30/22 06/30/22 History polyethylene glycol 3350 17 17 g PO DAILY PRN Constipation 06/30/22 06/30/22 History gram/dose oral powder sennosides 8.6 mg tablet 8.6 mg PO HS 06/30/22 06/30/22 History sennosides 8.6 mg-docusate sodium 1 tab PO QAM 06/30/22 06/30/22 History 50 mg tablet (Senna with Docusate Sodium) tamsulosin 0.4 mg capsule 0.4 mg PO QAM 06/30/22 06/30/22 History torsemide 10 mg tablet 10 mg PO QAM 06/30/22 06/30/22 History Patient History Medical History (Updated 07/04/22 @ 18:10 by Hanna Lazo, VIKASH) Advanced care planning/counseling discussion Palliative care by specialist Social History Smoking Status: Never smoker Hx Alcohol Use: No Hx Substance Use: No Preferred Language: Japanese Communication Ability: Effective Tile Grinder Required: No Beliefs That Will Affect Care: None Current Living Situation: Personal Care Facility Feels Safe at Home: Yes Safety Concerns: Feels Safe At This Time Assistive Devices: Glasses and Walker Review of Systems Review of Systems: All systems reviewed & are unremarkable except as noted in Subjective Physical Exam Physical Exam: He is not a reliable historian. He will at times refuse to answer questions or have a delayed response can be tangential. He is resting in bed, asleep at the time of my visit. His eyes open and he awakes easily to voice. There is no bitemporal wasting noted. His pupils are equal, round and reactive to light. His extraocular movements are intact. His neck is supple and without stridor. There is a limited anterior chest exam which reveals coarse, diffuse bilateral rhonchi with a bronchitic cough. There is mild use of accessory muscles noted with prolonged conversation. Presented structure is noted to be abbreviated due to dyspnea. His abdomen is softly distended, bowel sounds are present throughout and it is nontender. There is generalized weakness noted though strength is equal and symmetrical for bilateral upper and lower extremities. There is diffuse hyperpigmentation of skin with some demarcation noted. Results & Data Vital Signs (Past 12 Hours) Vital Signs Temp Pulse Pulse Resp BP Pulse Ox O2 Del Method 07/04/22 12:16 Room Air 07/04/22 10:29 83 19 90 Room Air 07/04/22 10:50 36.6 C 90 18 102/62 94 Room Air 07/04/22 07:43 36.8 C 89 20 107/72 91 Room Air 07/04/22 08:09 90 07/04/22 07:02 88 17 90 Room Air Laboratory Results Data reviewed Diagnostic Findings Data reviewed PG Care Time/CCT Total # of Minutes Spent Total Time Spent: 120 Total Time Spent with Patient: Total time spent is greater than 50% in coordination of care (as documented) at patient's floor/unit and/or counseling patient: I spent 120 minutes overall addressing this very complex case: 20 in medical data review/OSH data review via [employer], discussion with nursing and referring provider(s) and/or preparation for the visit 15 in direct interaction with the patient []and/or [] 60Advance Care Planning/Goals of Care discussions as detailed above in note (must be >16min) 10 in subsequent review and synthesis of assessment and plan 15 in communicating with other providers regarding the patient's case: nursing, primary team Prolonged Care Time Prolonged Care Time: Yes Advanced Care Planning [id number] Advanced Care Planning 30 Min [id number] Advanced Care Planning Additional 30 [place] [address] IN/OBS CONSULT LVL 5,80M Patient Type New Medical Decision Making High Complexity Diagnoses Palliative care by specialist Z51.5 Advanced care planning/counseling discussion Z71.89 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
[2022-07-04] MEDS: dexAMETHasone 6 MG in SYRINGE 0 ML IV SCH (16:42)
--- NOTE | 2022-07-04 18:14 | Cardiology Progress Note ---
Date of Service July 04, 2022 Assessment & Plan (1) Mesothelioma: (2) Acute hypercapnic respiratory failure: (3) NSVT (nonsustained ventricular tachycardia): Plan: -Amiodarone of course is only a temporizing solution, and I feel it is overall noncardiac illness is what is the inciting cause of his arrhythmia. Amiodarone is not an ideal medication and patient already has severe underlying lung disease, however no better treatment options. -His systolic blood pressure is tenuous in the 90s to 100s, and he has already recently presented a month ago with multifactorial shock, systolic blood pressures in the 70s, and cardiac tamponade, so I do not think there is much room to add an oral beta-jolene. -As noted patient has declined amiodarone and I have removed this order from the computer. Prognosis is poor. Admission and Anticipated Discharge Date Admission Date: June 30, 2022 Subjective Patient seen in cardiology follow-up of episodes of nonsustained ventricular tachycardia. Overnight last night, patient apparently refused amiodarone infusion. Dr. Flynn came to the bedside at 4 AM discussed the rationale for medication. Patient declined the medication, and it was therefore disconnected from his IV. The order has since been discontinued. Patient continues to have short runs of nonsustained ventricular tachycardia. These are seemingly asymptomatic although I am not certain how well the patient is mentating and him unaware of his typical baseline. Physical Exam Constitutional: + ill appearing Respiratory: Auscultation: + diminished lung sounds Cardiovascular: RRR, no murmur, no edema Gastrointestinal (Abdomen): normal bowel sounds, soft, nontender, no hepatosplenomegaly Neurologic: PERRL, EOMI, accommodation nl, no face palsy, no dysarthria Results & Data Vital Signs (Past 12 Hours) Vital Signs Temp Pulse Pulse Resp BP Pulse Ox O2 Del Method 07/04/22 15:00 37.1 C 95 H 20 100/68 91 Room Air 07/04/22 15:12 73 18 90 Room Air 07/04/22 12:16 Room Air 07/04/22 10:29 83 19 90 Room Air 07/04/22 10:50 36.6 C 90 18 102/62 94 Room Air 07/04/22 07:43 36.8 C 89 20 107/72 91 Room Air 07/04/22 08:09 90 07/04/22 07:02 88 17 90 Room Air Laboratory Results Cardiac Enzymes 07/04/22 Range/Units 06:24 AST 8 L (13-39) U/L CBC 07/04/22 Range/Units 06:24 WBC 8.93 (4.8-10.8) K/ul RBC 3.70 L (4.70-6.10) M/uL Hgb 8.4 L (14.0-18.0) g/dl Hct 27.7 L (42.0-52.0) % Plt Count 228 (130-400) K/uL Neut # (Auto) 6.86 H (1.40-6.50) K/uL Lymph # (Auto) 1.05 L (1.2-3.4) K/uL [place] # (Auto) 0.63 H (0.11-0.59) K/uL Eos # (Auto) 0.01 (0-0.50) K/uL Baso # (Auto) 0.02 (0-0.2) K/uL Comprehensive Metabolic Panel 07/04/22 Range/Units 06:24 Sodium 138 (136-145) mmol/L Potassium 4.3 (3.5-5.1) mmol/L Chloride 100 (98-107) mmol/L Carbon Dioxide 33 H (21-32) mmol/L BUN 23 (6-23) mg/dl Creatinine 1.36 (0.6-1.4) mg/dl Glucose 73 (70-99(Fasting)) mg/dl Calcium 7.9 L (8.6-10.3) mg/dl AST 8 L (13-39) U/L ALT 4 L (7-52) U/L Alkaline Phosphatase 71 (34-104) U/L Total Protein 5.5 L (6.0-8.3) gm/dl Albumin 2.3 L (3.4-5.0) gm/dl Intake and Output 07/04/22 07/04/22 07/04/22 06:59 14:59 22:59 Intake Total 343.838 / 1093.838 210 / 330 120 / 330 Output Total 1050 / 2501 1000 / 1000 Balance -706.162 / -1407.162 -790 / -670 120 / -670 Intake: IV 343.838 / 893.838 210 / 330 120 / 330 Amiodarone / D5w 360 mg In 200 113.838 / 113.838 ml @ 0.5 MG/MIN 16.667 mls/hr IV .Q12H [facility] Rx#:[id number] Doxycycline Hyclate 100 mg In 110 / 220 110 / 110 Dextrose 5% 100 ml @ 50 mls/hr IV Q12H [facility] Rx#:[id number] Magnesium Sulfate / D5w 1 gm In 100 / 100 100 ml @ 50 mls/hr IV [facility] Rx#:[id number] Piperacillin/Tazobactam 4.5 gm 120 / 360 120 / 120 In Dextrose 5% 100 ml @ 30 mls/ hr IV Q8H [facility] Rx#:[id number] Oral 0 / 200 Output: Urine Amount (Catheter) 1050 / 2500 1000 / 1000 Bailey/Indwelling 1050 / 2500 1000 / 1000 Other: Weight 95.4 kg Weight Measurement Method Built in [facility]
--- NOTE | 2022-07-04 18:32 | Hospitalist Progress Note ---
Date of Service July 04, 2022 Assessment & Plan (1) Acute hypercapnic respiratory failure: Plan: Acute hypercapnic respiratory failure H/O Metastatic mesothelioma COPD Right pleural effusion likely malignant Failure to thrive Pericardial effusion, diastolic heart failure likely contributing as well Recent COVID-19 infection --CT Chest:There is diffuse pleural thickening throughout the right hemithorax and consolidation of the right mid to lower lung. There is interstitial infiltrate throughout the remaining right upper lung. Consider neoplasm. There are multiple scattered pulmonary nodules in the left lung measuring up to 9 mm suggesting metastatic neoplasm. There is a small to moderate left pleural effusion layering 5 cm dependently mild adjacent left basilar atelectasis. Mild cardiomegaly and diffuse anasarca. Some component of CHF is suspected. -Procalcitonin 0.16 Follows with pulmonology and oncology at [place] Poor prognosis Continue dexamethasone to complete 10-day course Appreciate pulmonology input Palliative care consulted to address goals of care Continue pulmonary hygiene, hypertonic saline Nebs Avoid narcotics as able Continue IV Zosyn, doxycycline Pericardial effusion NSVT -ECHO: Mild concentric LVH. No regional wall motion abnormalities. EF greater than 70%. Right ventricle is normal in size and function. Grade 1 diastolic dysfunction. No significant valvular disease. Aortic root is moderately enlarged with diameter 4.7 cm. Small circumferential pericardial effusion is present. There is circumferential echodensity in the pericardial space consistent with fibrinous strands or coagulum. Moderate size left pleural effusion. 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: Plan: H/O metastatic malignant mesothelioma Received palliative immunotherapy in [place] Appreciate palliative care input (3) Malignant pericardial effusion: Plan: Malignant pericardial effusion in [place] status post drainage on 06/07/2022 Echocardiogram as above Management as above On IV Lasix (4) Anemia: Plan: Positive FOBT H/O hemorrhoids S/P 1 unit PRBCs Monitor H&H (5) Chronic diastolic heart failure: Plan: On IV Lasix Monitor volume status (6) COPD (chronic obstructive pulmonary disease): (7) COVID-19 virus infection: Plan: Noted to have COVID-19 virus infection with history of documented coronavirus on 05/21/2022 Ongoing cough No acute issues Saturating low 90s on room air Chronic cancer pain Hypothyroidism Continue levothyroxine Pain control as needed DVT Px: Lovenox SQ CODE STATUS Full code for now Palliative care consulted to address goals of care Admission and Anticipated Discharge Date Admission Date: June 30, 2022 Subjective Patient is seen and examined at bedside Has ongoing chronic cough Denies any significant pain Discussed with pulmonology, palliative care, patient's family at bedside Also discussed with psychiatry Poor prognosis Intermittent NSVT's on monitor Review of Systems Review of Systems: All systems reviewed & are unremarkable except as noted in Subjective Physical Exam Physical Exam: Physical Exam: Vitals signs as noted above General Appearance:Moderately built and nourished, no apparent distress, Chronic ill appearing Head: normocephalic, Atraumatic Eyes: normal inspection, EOMI Neck: supple, Trachea midline Respiratory/Chest: Decreased breath sounds, basal crackles, No accessory muscle use Cardiovascular: S1, S2, No murmur Abdomen/GI:Soft, Non tender, Bowel sounds present Extremities/Musculoskeletal:normal inspection, 1+ Pedal edema Neurologic/Psych:AAOX2, grossly no focal neurological deficits Skin: normal color, warm Results & Data Results & Data Vital Signs (Past 12 Hours) Vital Signs Temp Pulse Pulse Resp BP Pulse Ox O2 Del Method 07/04/22 15:00 37.1 C 95 H 20 100/68 91 Room Air 07/04/22 15:12 73 18 90 Room Air 07/04/22 12:16 Room Air 07/04/22 10:29 83 19 90 Room Air 07/04/22 10:50 36.6 C 90 18 102/62 94 Room Air 07/04/22 07:43 36.8 C 89 20 107/72 91 Room Air 07/04/22 08:09 90 07/04/22 07:02 88 17 90 Room Air Laboratory Results Short CBC 07/04/22 Range/Units 06:24 WBC 8.93 (4.8-10.8) K/ul Hgb 8.4 L (14.0-18.0) g/dl Hct 27.7 L (42.0-52.0) % Plt Count 228 (130-400) K/uL BMP 07/04/22 06:24 Sodium 138 Potassium 4.3 Chloride 100 Carbon Dioxide 33 H BUN 23 Creatinine 1.36 Glucose 73 Calcium 7.9 L Liver Function 07/04/22 Range/Units 06:24 Total Bilirubin 0.2 (0.2-1.0) mg/dl AST 8 L (13-39) U/L ALT 4 L (7-52) U/L Alkaline Phosphatase 71 (34-104) U/L Albumin 2.3 L (3.4-5.0) gm/dl
[2022-07-04] MEDS: SODIUM CHLOR 7% 4 ML NEB NEB SCH (19:14)
[2022-07-04] MEDS: MIRTAZAPINE TAB 15 MG TAB PO SCH (20:10)
[2022-07-04] MEDS: SENNA 8.6 MG TAB PO SCH (20:12)
[2022-07-04] MEDS: ENOXAPARIN INJ 40 MG/0.4 ML SYR SQ SCH (20:13)
[2022-07-05] MEDS: DOXYCYCLINE HYCLATE 100 MG in DEXTROSE 5% 100 ML IV SCH ×2 (00:14→12:14)
[2022-07-05] MEDS: PIPERACILLIN/TAZOBACTAM 4.5 GM in DEXTROSE 5% 100 ML IV SCH ×3 (03:37→20:29)
[2022-07-05] MEDS: LEVOTHYROXINE SODIUM 100 MCG TABLET PO SCH (06:18)
[2022-07-05] MEDS: oxyCODONE HCL IR 5 MG TAB (IMMEDIATE RELEASE) PO PRN ×4 (06:21→23:21)
[2022-07-05 06:30] LABS: Hematocrit (blood only) 26.5 % (42.0-52.0)
[2022-07-05] MEDS: BENZONATATE 100 MG CAPSULE PO PRN (06:42)
[2022-07-05 06:46] LABS: BUN Creatinine Ratio 17.2 (10-20); Creatinine Clr Calc Pharmacy 64.5 ml/min; Est GFR (African American) 69.2 ml/min; Est GFR (Non-African American) 59.7 ml/min; Magnesium 1.7 mg/dl (1.7-2.4); Potassium 3.9 mmol/L (3.5-5.1)
[2022-07-05] MEDS: ALBUT/IPRATROP 3MG/0.5MG NEB 3 ML VIAL NEB SCH ×4 (07:03→19:26)
[2022-07-05] MEDS: SODIUM CHLOR 7% 4 ML NEB NEB SCH ×2 (07:03→19:25)
--- NOTE | 2022-07-05 08:36 | Pulmonology Progress Note ---
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 It is unclear why he was actually brought to the emergency room and admitted here. Apparently according to the bedside nurse, the family was unhappy with the care that he was receiving and wanted him admitted to the facility to work on placement at an alternative institution. His CT scan shows diffuse pleural thickening. CT chest 06/30/2022 personally reviewed: Bilateral pleural effusion, left greater than the right Multiple pulmonary nodules appreciated bilaterally Right-sided pleural thickening with elevated right hemidiaphragm Consolidative process versus pulmonary mass on the right side Minimal mediastinal lymphadenopathy The consolidative process in the right upper lobe is new compared to CAT scan do ne 06/04/2022 2D echo 07/01/2022: EF greater than 70%, aortic root moderately enlarged with diameter 4.7 cm small circumferential pericardial effusion, grade 1 diastolic dysfunction, RV normal in size and function ABG 07/01/2022: 7.31/65/61 on room air --> 7.44/51/59 on room air -- Acute hypercapnic respiratory failure Likely from underlying COPD and restrictive lung disease from encasing tumour along with consolidative process/pneumonia on the right side Avoid medication which can suppress respiratory drive Do not over oxygenate the patient, keep O2 saturation between 90-92% -- Pleural effusion Bilateral, left greater than right Likely malignant Diastolic heart failure might also be playing a role Procalcitonin 0.16 Patient is not requiring any oxygen and is not in any respiratory distress, no plan for any intervention right now -- 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 -- COVID positive test Patient originally tested positive on 05/21/2022 at [facility] along with other family members COVID-19 PCR positive on 06/30/2022 at the time of presentation to the hospital Influenza A/B, RSV negative BNP 530 There is any significant worsening on the CAT scan of the chest at presentation compared to before, thus dexamethasone was added Plan: Patient CT chest from earlier last month which was done in [place] personally reviewed. On the latest CT chest patient does seem to have dense consolidative process in the right upper lobe Pneumonia as well as history of COVID could be playing a role. Complete the course of dexamethasone for total of 10 days Palliative care on board Continue with flutter valve, hypertonic saline to be added Any opioid medication will suppress the respiratory drive and cause hypercapnia. Need to keep that in mind. Unfortunately patient is noncompliant with BiPAP No further recommendation from pulmonary perspective. Will sign off Please call directly with any questions Case was discussed with RN and Dr. Guido Please note the above document was generated using voice recognition software. It may contain grammatical, syntax or spelling errors.Any formal questions or concerns about the content, text or information contained within the body of this dictation should be directly addressed to the provider for clarification. Admission and Anticipated Discharge Date Admission Date: June 30, 2022 Subjective Patient seen and examined. Was saturating 90 have been 96 on room air Not in any acute distress Denies any chest pain, no headache, no nausea Poor appetite. Review of Systems Review of Systems: All systems reviewed & are unremarkable except as noted in Subjective Physical Exam Physical Exam: Constitutional: No acute distress HEENT: EOMI, PERRLA Respiratory system: Decreased air entry bilaterally, more decreased on the right side, no wheeze, no rhonchi, positive crackles bilaterally CVS: S1-S2 positive Abdomen: Soft, nontender, nondistended, positive bowel sounds x4 Extremities: +2 pulses bilaterally radialis/ dorsalis pedis, no cyanosis, +1 pitting edema bilateral lower extremity Neuro: Awake alert oriented to self and place Psych: Flat mood and affect G/U: Positive Bailey Skin: no rashes, warm and dry Lymphatic: no cervical or axillary lymphadenopathy Results & Data Results & Data Vital Signs (Past 12 Hours) Vital Signs Temp Pulse Resp BP BP Pulse Ox O2 Del Method 07/05/22 07:27 36.3 C L 75 16 122/85 94 Room Air 07/05/22 07:03 79 16 94 Room Air 07/05/22 03:04 36.8 C 74 19 143/92 H 94 Room Air 07/05/22 00:15 36.4 C L 69 18 120/80 94 Room Air 07/04/22 23:06 Room Air Laboratory Results 07/05/22 06:02 07/05/22 06:02 PG Care Time/CCT Total # of Minutes Spent Total Time Spent with Patient: Total time spent is greater than 50% in coordination of care (as documented) at patient's floor/unit and/or counseling patient: Coding Level of Care Code 84495 SUB INP/OBS CARE 2/35MIN Diagnoses Mesothelioma C45.9 Failure to thrive in adult R62.7 Anemia D64.9 Acute hypercapnic respiratory failure J96.02 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
[2022-07-05] MEDS: guaiFENesin 600 MG TABCR PO SCH ×2 (09:07→20:17)
[2022-07-05] MEDS: MULTIVITAMIN TAB PO SCH (09:08)
[2022-07-05] MEDS: TAMSULOSIN HCL 0.4 MG CAP PO SCH (09:08)
[2022-07-05] MEDS: CYANOCOBALAMIN (B-12) 500 MCG TABLET PO SCH (09:08)
[2022-07-05] MEDS: FOLIC ACID 1 MG TAB PO SCH (09:08)
[2022-07-05] MEDS: CHOLECALCIFEROL 5,000 UNITS 125 MCG TAB PO SCH (09:08)
[2022-07-05] MEDS: PANTOprazole 40 MG TAB PO SCH ×2 (09:08→20:20)
[2022-07-05] MEDS: FUROSEMIDE 40 MG/4 ML VIAL IV SCH (09:08)
[2022-07-05] MEDS: DOCUSATE SODIUM/SENNA 50/8.6MG TAB PO SCH (09:08)
[2022-07-05] MEDS: LACTULOSE SYRUP 10 GM/15 ML BTL 960 ML PO SCH ×2 (09:09→20:19)
[2022-07-05] MEDS ORDERED: MAGNESIUM SULFATE / D5W 1 GM/100 ML BAG IV ONE (09:11)
[2022-07-05] MEDS: AMIODARONE / D5W 360 MG/200 ML BAG IV SCH (09:23)
--- NOTE | 2022-07-05 11:16 | Communication Note ---
Date of Service: July 05, 2022 Attempted to see patient but he was in the midst of being moved to the bedpan. Will re-attempt consult later today.
[2022-07-05] MEDS: dexAMETHasone 6 MG in SYRINGE 0 ML IV SCH (16:40)
--- NOTE | 2022-07-05 17:23 | Hospitalist Progress Note ---
Date of Service July 05, 2022 Assessment & Plan (1) Acute hypercapnic respiratory failure: Plan: Acute hypercapnic respiratory failure H/O Metastatic mesothelioma COPD Right pleural effusion likely malignant Failure to thrive Pericardial effusion, diastolic heart failure likely contributing as well Recent COVID-19 infection --CT Chest:There is diffuse pleural thickening throughout the right hemithorax and consolidation of the right mid to lower lung. There is interstitial infiltrate throughout the remaining right upper lung. Consider neoplasm. There are multiple scattered pulmonary nodules in the left lung measuring up to 9 mm suggesting metastatic neoplasm. There is a small to moderate left pleural effusion layering 5 cm dependently mild adjacent left basilar atelectasis. Mild cardiomegaly and diffuse anasarca. Some component of CHF is suspected. -Procalcitonin 0.16 Follows with pulmonology and oncology at [place] Continue dexamethasone to complete 10-day course Appreciate pulmonology input Palliative care consulted to address goals of care Continue pulmonary hygiene, hypertonic saline Nebs Avoid narcotics as able Continue IV Zosyn, doxycycline Very poor prognosis Palliative care following Pericardial effusion NSVT -ECHO: Mild concentric LVH. No regional wall motion abnormalities. EF greater than 70%. Right ventricle is normal in size and function. Grade 1 diastolic dysfunction. No significant valvular disease. Aortic root is moderately enlarged with diameter 4.7 cm. Small circumferential pericardial effusion is present. There is circumferential echodensity in the pericardial space consistent with fibrinous strands or coagulum. Moderate size left pleural effusion. 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: Plan: H/O metastatic malignant mesothelioma Received palliative immunotherapy in [place] Appreciate palliative care input (3) Malignant pericardial effusion: Plan: Malignant pericardial effusion in [place] status post drainage on 06/07/2022 Echocardiogram as above Management as above On IV Lasix (4) Anemia: Plan: Positive FOBT H/O hemorrhoids S/P 1 unit PRBCs Monitor H&H (5) Chronic diastolic heart failure: Plan: On IV Lasix Monitor volume status (6) COPD (chronic obstructive pulmonary disease): (7) COVID-19 virus infection: Plan: Noted to have COVID-19 virus infection with history of documented coronavirus on 05/21/2022 Ongoing cough No acute issues Saturating low 90s on room air Chronic cancer pain Hypothyroidism Continue levothyroxine Pain control as needed DVT Px: Lovenox SQ CODE STATUS Full code for now Palliative care consulted to address goals of care Admission and Anticipated Discharge Date Admission Date: June 30, 2022 Subjective Patient is seen and examined at bedside States having minimal cough Otherwise no complaints Saturating low 90s on room air Denies any chest pain, dyspnea, dizziness, nausea, abdominal pain Intermittent NSVT's on monitor Very poor prognosis Review of Systems Review of Systems: All systems reviewed & are unremarkable except as noted in Subjective Physical Exam Physical Exam: Physical Exam: Vitals signs as noted above General Appearance:Moderately built and nourished, no apparent distress, Chronic ill appearing Head: normocephalic, Atraumatic Eyes: normal inspection, EOMI Neck: supple, Trachea midline Respiratory/Chest: Decreased breath sounds, basal crackles, No accessory muscle use Cardiovascular: S1, S2, No murmur Abdomen/GI:Soft, Non tender, Bowel sounds present Extremities/Musculoskeletal:normal inspection, 1+ Pedal edema Neurologic/Psych:AAOX2, grossly no focal neurological deficits Skin: normal color, warm Results & Data Results & Data Vital Signs (Past 12 Hours) Vital Signs Temp Pulse Resp BP Pulse Ox O2 Del Method 07/05/22 15:08 36.8 C 86 18 95/60 L 91 Room Air 07/05/22 14:44 81 18 95 Room Air 07/05/22 11:12 36.5 C 91 H 16 106/73 96 Room Air 07/05/22 08:00 Room Air 07/05/22 07:27 36.3 C L 75 16 122/85 94 Room Air 07/05/22 07:03 79 16 94 Room Air Laboratory Results Short CBC 07/05/22 Range/Units 06:02 Hgb 8.0 L (14.0-18.0) g/dl Hct 26.5 L (42.0-52.0) % BMP 07/05/22 06:02 Sodium 138 Potassium 3.9 Chloride 100 Carbon Dioxide 32 BUN 21 Creatinine 1.22 Glucose 92 Calcium 8.0 L
--- NOTE | 2022-07-05 17:32 | Psychiatric Consultation ---
Date of Consultation July 05, 2022 Impression / Recommendations Impression 71 yo man with metastatic mesothelioma and multiple subsequent worsening medical co-morbidities admitted medically for SOB and cough. Psychiatry consulted initially for decision making competency which was adjusted to decision making capacity regarding health care decisions. Competency is a legal assessment which is determined by the courts. Decision making capacity on the other hand can be assessed by any medical provider regarding a specific decision at a specific time. It is foremost critical to emphasis that this assessment is task specific, dimensional and does not represent nor can be it be used as a means of assessment global legal competency. Also important to note is that a patient's decision can be unwise as long as a rational process was used to arrive at it. Decision making capacity determinations are decision and time specific. A person may have capacity with respect to one decision, such as deciding on or refusing certain medical treat ments, and may not have decision making capacity in regards to other decisions. Typically the higher risk or higher mortality decisions require higher levels of evidence of decision making (i.e. being able to explain extensive risks/benefits compared with a decision that is not as impactful which requires less evidence for critical thinking). When a person is delirious this absolutely impacts their ability to meaningfully understand information and appreciate the risks of refusing or accepting treatment. The person's decision making capacity can also guide changer time given that their mental status and various other factors can certainly fluctuate over time. Assessment of Decision-Making Capacity Criterion (X=present) Patient Task Partial Communicates a choice Patient is able to clearly indicate preferred treatment option in a clear and consistent manner: Calvin can state his preference for living as long as possible and his current desire for life sustaining treatments and to be at home. However he has not been fully consistent with his treatment decisions related to smaller treatment decisions such as cardiac monitoring, cardiac medications and labwork. Partial Understands information provided Patient understands their condition and treatment options: Calvin can state that he has a non-curable illness and that the end result will be "no matter what" but seems to struggle at times to understand why certain options are being offered or what his options include if he cannot return home. Lacking Appreciates consequences Patient shows approp riately nuanced appreciation for the risks & benefits associated with available treatment options, including no treatment. Calvin is not able to speak to more specific and nuanced risks and benefits of various options but does have a general ability to speak to what drawbacks could come from rehab and benefits of going home but cannot speak to benefits of rehab or risks of going home except that he could fall again. Partially Manipulates relevant information Patient able to rationally weigh risks & benefits, as well as offer reasons for their decision: Calvin can speak consistently to his desire to maintain his independence and freedom for as long as possible as well as to live for as long as possible. His rationale for hesitancy about rehab is clear but less clear is what he hopes to achieve with hospital interventions or treatment options that would not be offered if he were to go back on hospice. Overall Calvin shows the ability to vocalize certain desires for treatment and this should be honored as much as feasibly possible. However, given that he would not participate with orientation questions and it is unclear if he has been experiencing periods of delirium or forgetfulness as described to other providers by his daughters, this would certainly impact his decision making regarding certain decisions. I suspect that a main reason for his ongoing ambivalence and changing his mind at times is driven by his level of pain or fatigue in the moment when the intervention is offered or procedure is being attempted as well as his ongoing attempt to process what it means to be dying. I think he is still processing what it means to be dying and that at this point the idea of giving up control by going on hospice or going to a facility feels like giving in to this even though he recognizes from an intellectual standpoint that there is no cure for his illness and that "the end result will be the same no matter what". I suspect he is also resistant to hospice based interventions as he worries he will then be sent away to a long-term and left to . It is clear that he desires to live as long as possible which is a very reasonable goal and I agree with palliative care recommendations regarding what is reasonable with regards to care at the end of life. He is also clear that he wants to preserve his independence and freedom without getting to a point of having to deal with extreme pain. Ideally he could have [facility]lh[facility]-cer-rhnew care at home which is where he most wants to be; unfortunately given that it seems this is not an option financially, he and his family will need to make decisions about whether or not risks of falling with benefit of being at home is given priority versus more structured level of care that offers increased support but less independence. 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 Psychiatry consulted for recommendations regarding decision making capacity related to his health care decisions. Chief Complaint "I feel like everyone just wants me to pass". History of Present Illness Calvin was admitted for worsening SOB and cough. Last month he was admitted to [facility] in [place] and seen by multiple specialists including cardiology, palliative care, oncology after a fall and was diagnosed with hypovolemic shock and required some procedures including pericardiocentesis. He was discharged to a SNF for rehab but his breathing was getting worse there, apparently was not using his nighttime oxygen and he felt his pain was not being well managed. Since admission to [facility] he has been somewhat inconsistent in his treatment goals, he remains full code and wants all interventions but then was intermittently refuses medications recommended by cardiology, labwork at times and declining to wear the continuous dehydrogenation operator head. However, he has continued to state his desire to restart palliative immunotherapy chemotherapy once able, this has been on pause due to his recent COVID infection. He was seen by palliative care yesterday who met with him and his daughters. Palliative care team raised concern about his decision making capacity for medical decisions and treatment goals and these have shifted over time, his daughters have had concern about his critical thinking and shifts from being on hospice to being off of it again, and his difficulty reconciling his desire to be at home with his family's understandable limitations in meeting his now high medical care needs. On my assessment this afternoon he was joined by his daughter Yvonne who he was ok with remaining in the room during our discussion. He declined to answer any of the orientation questions noting he's asked them frequently and stating "I'm not answering stupid questions". He did agree to proceed with decision making capacity assessment stating he would answer "until I decide I don't want to anymore". We first discussed his ability to communicate a choice. He stated he isn't sure if he is going to follow the various doctor's recommendations because: "I feel like that's a personal question between my family and me". He went on to describe that he feels as though "everyone is ganging up on me in the other corner" and "just wants me to pass". Due to this he feels like he isn't sure which recommendations to follow. He stated his desire is "to live as long as possible" and to "be as independent as possible for as long as possible" and to "be at home and to at home". Asked about balance between living as long as possible versus living only until pain could no longer be managed he stated he falls "somewhere in between" and that he can manage some pain but wouldn't want to extend his life if he was dealing with extreme pain. Asked how we would know when this shifted he stated his plan to communicate this and that if he can no longer communicate stated he trusts his daughters to be his substituted decision makers. We then discussed his understanding of the relevant information. Asked to share in his own words what the doctor's have told him he states: "there's no cure and the end result will be the same no matter what". He was unable to more specifically describe risks/benefits or pros/cons of ongoing treatment versus hospice but did speak to his feeling that he doesn't think he'll get stronger even if he goes to rehab and worries about getting another infection and hating the food. We then discussed his understanding of the situation and consequences and reasons for his treatment decisions. He recognizes he was falling at home and that this could happen again as he has likely gotten "even weaker" since being in the hospital. States he would rather potentially fall and break something then be away from home. Stated he values his freedom and independence the most. Asked about why he was previously refusing certain interventions he states he didn't like the dehydrogenation operator head before due to it getting tangled and hurting, he is pleased with it today because his nurse wrapped up the cords together so it's been no problem to wear it. Says he changed his mind previously about hospice because "I wanted more treatment". States he is considering rehab again "maybe" but "never wants a long-term". Allergies Allergy/AdvReac Type Severity Reaction Status Date / Time No Known Allergies Allergy Unverified 06/30/22 19:15 Home Medications Medication Instructions Recorded Confirmed Type albuterol sulfate 90 mcg/actuation 2 puff inhalation 6XD PRN 06/30/22 06/30/22 History aerosol inhaler (Ventolin HFA) Shortness Of Breath Or Wheezing cholecalciferol (vitamin D3) 125 125 mcg PO QAM 06/30/22 06/30/22 History mcg (5,000 unit) capsule cyanocobalamin (vitamin B-12) 1,000 mcg PO QAM 06/30/22 06/30/22 History 1,000 mcg tablet folic acid 1 mg tablet 1 mg PO QAM 06/30/22 06/30/22 History guaifenesin 600 mg tablet, 600 mg PO Q12H 06/30/22 06/30/22 History extended release 12 hr lactulose 10 gram/15 mL oral 15 ml PO BID 06/30/22 06/30/22 History solution levothyroxine 100 mcg tablet 100 mcg PO DAILYBB 06/30/22 06/30/22 History mirtazapine 15 mg tablet 15 mg PO HS 06/30/22 06/30/22 History multivitamin 1 tab PO QAM 06/30/22 06/30/22 History naloxone 4 mg/actuation nasal spray 1 spray intranasal .UD PRN Opioid 06/30/22 06/30/22 History Overdose ondansetron 8 mg disintegrating 8 mg PO Q8H PRN Nausea 06/30/22 06/30/22 History tablet oxycodone 10 mg tablet 10 mg PO Q4H PRN Pain 06/30/22 06/30/22 History polyethylene glycol 3350 17 17 g PO DAILY PRN Constipation 06/30/22 06/30/22 History gram/dose oral powder sennosides 8.6 mg tablet 8.6 mg PO HS 06/30/22 06/30/22 History sennosides 8.6 mg-docusate sodium 1 tab PO QAM 06/30/22 06/30/22 History 50 mg tablet (Senna with Docusate Sodium) tamsulosin 0.4 mg capsule 0.4 mg PO QAM 06/30/22 06/30/22 History torsemide 10 mg tablet 10 mg PO QAM 06/30/22 06/30/22 History Patient History Medical History Advanced care planning/counseling discussion Palliative care by specialist Social History Smoking Status: Never smoker Hx Alcohol Use: No Hx Substance Use: No Preferred Language: [place] Communication Ability: Effective [employer] Required: No Beliefs That Will Affect Care: None Current Living Situation: Personal Care Facility Feels Safe at Home: Yes Safety Concerns: Feels Safe At This Time Assistive Devices: Glasses and Walker Physical Exam Psychiatric: Orientation: alert Apperance: appropriately dressed and appropriately groomed Eye Contact: + fair eye contact Motor Behavior: no abnormal motor movements Speech: normal rate/rhythm/volume of speech Affect: + constricted affect Mood: + irritable mood; no depressed mood and no anxious mood Thought Process: linear/logical thought process Thought Content: reality based without delusions Suicidal Thoughts: denies suicidal thoughts Homicidal Thoughts: denies homicidal thoughts Hallucinations: no auditory hallucinations and no visual hallucinations Cognition: recent memory grossly intact, remote memory grossly intact, attention grossly intact and language grossly intact Estimated Intelligence: consistent with education level Insight: + fair insight Judgment: + limited judgement Vital Signs (Past 24 Hours): Last Vital Signs Temp 36.8 C 07/05/22 15:08 Pulse 86 07/05/22 15:08 Resp 18 07/05/22 15:08 BP 95/60 L 07/05/22 15:08 Pulse Ox 91 07/05/22 15:08 O2 Del Method Room Air 07/05/22 15:08 O2 Flow Rate 0 07/03/22 01:19 Review of Systems All systems reviewed & are unremarkable except as noted in HPI & below Results & Data (PSY) Medications Administered Acetaminophen (Acetaminophen 325 Mg Tab) 650 mg PO Q4H PRN PRN Reason: Pain or Fever Stop: 07/30/22 21:48 Last Admin: 07/01/22 22:07 Dose: 650 mg Documented By: SAMUEL Albuterol (Albut/Ipratrop 3mg/0.5mg Neb 3 Ml Vial) 3 ml NEB QIDR JONATHAN; Protocol Stop: 07/31/22 06:59 Last Admin: 07/05/22 14:43 Dose: 3 ml Documented By: Admin: 07/05/22 11:29 Dose: Not Given Documented By: Admin: 07/05/22 07:03 Dose: 3 ml Documented By: Admin: 07/04/22 19:14 Dose: 3 ml Documented By: Admin: 07/04/22 15:12 Dose: 3 ml Documented By: Admin: 07/04/22 10:28 Dose: 3 ml Documented By: Admin: 07/04/22 07:01 Dose: 3 ml Documented By: Admin: 07/03/22 19:08 Dose: 3 ml Documented By: Admin: 07/03/22 15:38 Dose: Not Given Documented By: EARajesh Admin: 07/03/22 10:59 Dose: 3 ml Documented By: Admin: 07/03/22 07:15 Dose: 3 ml Documented By: Admin: 07/02/22 19:44 Dose: 3 ml Documented By: Admin: 07/02/22 15:45 Dose: Not Given Documented By: Admin: 07/02/22 11:38 Dose: 3 ml Documented By: Admin: 07/02/22 07:26 Dose: 3 ml Documented By: Admin: 07/01/22 19:18 Dose: 3 ml Documented By: Admin: 07/01/22 15:05 Dose: 3 ml Documented By: Admin: 07/01/22 11:07 Dose: 3 ml Documented By: Admin: 07/01/22 07:04 Dose: 3 ml Documented By: DERIAN Benzonatate (Benzonatate 100 Mg Capsule) 100 mg PO TID PRN PRN Reason: Cough Stop: 07/31/22 21:26 Last Admin: 07/05/22 06:42 Dose: 100 mg Documented By: Admin: 07/02/22 08:49 Dose: 100 mg Documented By: RACHANAF(2) Admin: 07/01/22 22:07 Dose: 100 mg Documented By: SAMUEL Cyanocobalamin (Cyanocobalamin (B-12) 500 Mcg Tablet) 1,000 mcg PO QAM JONATHAN Stop: 07/31/22 08:59 Last Admin: 07/05/22 09:08 Dose: 1,000 mcg Documented By: CMF(2) Admin: 07/04/22 07:47 Dose: 1,000 mcg Documented By: Admin: 07/03/22 09:45 Dose: 1,000 mcg Documented By: Admin: 07/02/22 08:48 Dose: 1,000 mcg Documented By: SHAHRAM(2) Admin: 07/01/22 09:34 Dose: 1,000 mcg Documented By: YAN(2) Enoxaparin Sodium (Enoxaparin Inj 40 Mg/0.4 Ml Syr) 40 mg SQ Q24H JONATHAN Stop: 07/30/22 21:59 Last Admin: 07/04/22 20:13 Dose: Not Given Documented By: Admin: 07/03/22 21:17 Dose: Not Given Documented By: [id number] Admin: 07/02/22 21:12 Dose: Not Given Documented By: [id number] Admin: 07/01/22 20:46 Dose: 40 mg Documented By: Admin: 06/30/22 22:52 Dose: 40 mg Documented By: SAMUEL Folic Acid (Folic Acid 1 Mg Tab) 1 mg PO QAM JONATHAN Stop: 07/31/22 08:59 Last Admin: 07/05/22 09:08 Dose: 1 mg Documented By: SHAHRAM(2) Admin: 07/04/22 07:48 Dose: 1 mg Documented By: Admin: 07/03/22 09:44 Dose: 1 mg Documented By: Admin: 07/02/22 08:49 Dose: 1 mg Documented By: SHAHRAM(2) Admin: 07/01/22 09:34 Dose: 1 mg Documented By: YAN(2) Furosemide (Furosemide 40 Mg/4 Ml Vial) 40 mg IV DAILY JONATHAN Stop: 07/31/22 08:59 Last Admin: 07/05/22 09:08 Dose: 40 mg Documented By: SHAHRAM(2) Admin: 07/04/22 07:52 Dose: 40 mg Documented By: Admin: 07/03/22 09:49 Dose: 40 mg Documented By: Admin: 07/02/22 08:49 Dose: 40 mg Documented By: SHAHRAM(2) Admin: 07/01/22 09:33 Dose: 40 mg Documented By: YAN(2) Guaifenesin (Guaifenesin 600 Mg Tabcr) 1,200 mg PO Q12 JONATHAN Stop: 08/01/22 20:59 Last Admin: 07/05/22 09:07 Dose: 1,200 mg Documented By: CMF(2) Admin: 07/04/22 20:11 Dose: 1,200 mg Documented By: Admin: 07/04/22 07:48 Dose: 1,200 mg Documented By: Admin: 07/03/22 19:59 Dose: 1,200 mg Documented By: [id number] Admin: 07/03/22 09:44 Dose: 1,200 mg Documented By: Admin: 07/02/22 21:01 Dose: 1,200 mg Documented By: [id number] Piperacillin Sod/Tazobactam (Sod 4.5 gm/ Dextrose) 120 mls @ 30 mls/hr IV Q8H JONATHAN; Protocol Stop: 07/08/22 03:59 Last Infusion: 07/05/22 16:36 Dose: 0 mls/hr Documented By: SHAHRAM(2) Admin: 07/05/22 12:14 Dose: 30 mls/hr Documented By: SHAHRAM(2) Infusion: 07/05/22 09:23 Dose: 0 mls/hr Documented By: SHAHRAM(2) Admin: 07/05/22 03:37 Dose: 30 mls/hr Documented By: [id number] Infusion: 07/05/22 00:14 Dose: 0 mls/hr Documented By: Admin: 07/04/22 20:08 Dose: 30 mls/hr Documented By: Infusion: 07/04/22 16:00 Dose: 0 mls/hr Documented By: Admin: 07/04/22 12:00 Dose: 30 mls/hr Documented By: Admin: 07/04/22 04:13 Dose: Not Given Documented By: [id number] Infusion: 07/04/22 00:03 Dose: 0 mls/hr Documented By: [id number] Admin: 07/03/22 19:50 Dose: 30 mls/hr Documented By: [id number] Infusion: 07/03/22 16:20 Dose: 0 mls/hr Documented By: Admin: 07/03/22 12:16 Dose: 30 mls/hr Documented By: Infusion: 07/03/22 07:51 Dose: 0 mls/hr Documented By: Admin: 07/03/22 03:51 Dose: 30 mls/hr Documented By: [id number] Infusion: 07/03/22 00:16 Dose: 0 mls/hr Documented By: Admin: 07/02/22 20:00 Dose: 30 mls/hr Documented By: [id number] Infusion: 07/02/22 16:55 Dose: 0 mls/hr Documented By: RACHANAF(2) Admin: 07/02/22 11:50 Dose: 30 mls/hr Documented By: SHAHRAM(2) Infusion: 07/02/22 07:22 Dose: 0 mls/hr Documented By: RACHANAF(2) Admin: 07/02/22 03:14 Dose: 30 mls/hr Documented By: Infusion: 07/02/22 00:42 Dose: 0 mls/hr Documented By: Admin: 07/01/22 20:42 Dose: 30 mls/hr Documented By: Infusion: 07/01/22 17:20 Dose: 0 mls/hr Documented By: YAN(2) Admin: 07/01/22 12:59 Dose: 30 mls/hr Documented By: YAN(2) Infusion: 07/01/22 09:40 Dose: 0 mls/hr Documented By: YAN(2) Admin: 07/01/22 05:13 Dose: 30 mls/hr Documented By: SAMUEL Doxycycline Hyclate 100 mg/ (Dextrose) 110 mls @ 50 mls/hr IV Q12H JONATHAN Stop: 07/07/22 22:59 Last Infusion: 07/05/22 14:30 Dose: 0 mls/hr Documented By: SHAHRAM(2) Admin: 07/05/22 12:14 Dose: 50 mls/hr Documented By: SHAHRAM(2) Infusion: 07/05/22 02:21 Dose: 0 mls/hr Documented By: [id number] Admin: 07/05/22 00:14 Dose: 50 mls/hr Documented By: Infusion: 07/04/22 14:12 Dose: 0 mls/hr Documented By: Admin: 07/04/22 12:00 Dose: 50 mls/hr Documented By: Infusion: 07/04/22 02:21 Dose: 0 mls/hr Documented By: [id number] Admin: 07/04/22 00:04 Dose: 50 mls/hr Documented By: [id number] Infusion: 07/03/22 12:10 Dose: 0 mls/hr Documented By: Admin: 07/03/22 09:55 Dose: 50 mls/hr Documented By: Infusion: 07/03/22 03:44 Dose: 0 mls/hr Documented By: Admin: 07/03/22 01:24 Dose: 50 mls/hr Documented By: [id number] Infusion: 07/02/22 14:01 Dose: 0 mls/hr Documented By: CMF(2) Admin: 07/02/22 11:50 Dose: 50 mls/hr Documented By: RACHANAF(2) Infusion: 07/02/22 02:37 Dose: 0 mls/hr Documented By: Admin: 07/02/22 00:25 Dose: 50 mls/hr Documented By: Infusion: 07/01/22 13:36 Dose: 0 mls/hr Documented By: YAN(2) Admin: 07/01/22 11:15 Dose: 50 mls/hr Documented By: YAN(2) Infusion: 07/01/22 02:11 Dose: 0 mls/hr Documented By: Admin: 06/30/22 23:59 Dose: 50 mls/hr Documented By: SAMUEL Dexamethasone 6 mg/ Syringe 1.5 mls @ 1 mls/min IV Q24H JONATHAN Stop: 07/12/22 15:44 Last Admin: 07/05/22 16:40 Dose: 1 mls/min Documented By: CMF(2) Admin: 07/04/22 16:42 Dose: 1 mls/min Documented By: Admin: 07/03/22 15:25 Dose: 1 mls/min Documented By: Admin: 07/02/22 17:30 Dose: 1 mls/min Documented By: CMF(2) Amiodarone HCl/Dextrose (Nexterone / D5w) 360 mg in 200 mls @ 16.667 mls/hr IV .Q12H JONATHAN Stop: 08/02/22 15:14 Last Admin: 07/05/22 09:23 Dose: Not Given Documented By: RACHANAF(2) Infusion: 07/05/22 09:23 Dose: 0 mg/min, 0 mls/hr Documented By: RACHANAF(2) Co-signed By: [email or web address] Infusion: 07/04/22 04:04 Dose: 0 mg/min, 0 mls/hr Documented By: [id number] Co-signed By: LEN Admin: 07/03/22 21:15 Dose: 0.5 mg/min, 16.7 mls/hr Documented By: [id number] Co-signed By: LEN Lactulose (Lactulose Syrup 10 Gm/15 Ml Btl 960 Ml) 10 gm PO BID JONATHAN Stop: 07/30/22 21:48 Last Admin: 07/05/22 09:09 Dose: 10 gm Documented By: SHAHRAM(2) Admin: 07/04/22 20:12 Dose: Not Given Documented By: Admin: 07/04/22 07:53 Dose: Not Given Documented By: Admin: 07/03/22 20:09 Dose: Not Given Documented By: [id number] Admin: 07/03/22 09:50 Dose: Not Given Documented By: Admin: 07/02/22 21:12 Dose: Not Given Documented By: [id number] Admin: 07/02/22 08:49 Dose: 10 gm Documented By: SHAHRAM(2) Admin: 07/01/22 20:45 Dose: 10 gm Documented By: Admin: 07/01/22 09:35 Dose: 10 gm Documented By: YAN(2) Admin: 06/30/22 22:51 Dose: 10 gm Documented By: SAMUEL Levothyroxine Sodium (Levothyroxine Sodium 100 Mcg Tablet) 100 mcg PO DAILYBB JONATHAN Stop: 07/31/22 06:29 Last Admin: 07/05/22 06:18 Dose: 100 mcg Documented By: Admin: 07/04/22 06:01 Dose: 100 mcg Documented By: [id number] Admin: 07/03/22 06:15 Dose: 100 mcg Documented By: Admin: 07/02/22 05:51 Dose: 100 mcg Documented By: Admin: 07/01/22 05:39 Dose: 100 mcg Documented By: SAMUEL Mirtazapine (Mirtazapine Tab 15 Mg Tab) 15 mg PO HS JONATHAN Stop: 07/30/22 21:48 Last Admin: 07/04/22 20:10 Dose: 15 mg Documented By: Admin: 07/03/22 19:59 Dose: 15 mg Documented By: [id number] Admin: 07/02/22 21:03 Dose: 15 mg Documented By: [id number] Admin: 07/01/22 20:45 Dose: 15 mg Documented By: Admin: 06/30/22 22:51 Dose: 15 mg Documented By: SAMUEL Multivitamins (Multivitamin Tab) 1 tab PO QAM JONATHAN Stop: 07/31/22 08:59 Last Admin: 07/05/22 09:08 Dose: 1 tab Documented By: SHAHRAM(2) Admin: 07/04/22 07:48 Dose: 1 tab Documented By: Admin: 07/03/22 09:45 Dose: 1 tab Documented By: Admin: 07/02/22 08:49 Dose: 1 tab Documented By: SHAHRAM(2) Admin: 07/01/22 09:34 Dose: 1 tab Documented By: YAN(2) Oxycodone HCl (Oxycodone Hcl Ir 5 Mg Tab (Immediate Release)) 5 mg PO Q4H PRN PRN Reason: Pain Stop: 07/14/22 21:48 Last Admin: 07/05/22 12:34 Dose: 5 mg Documented By: SHAHRAM(2) Admin: 07/05/22 06:21 Dose: 5 mg Documented By: Admin: 07/04/22 21:56 Dose: 5 mg Documented By: [id number] Admin: 07/04/22 17:55 Dose: 5 mg Documented By: Admin: 07/04/22 10:49 Dose: 5 mg Documented By: Admin: 07/04/22 06:01 Dose: 5 mg Documented By: [id number] Admin: 07/04/22 02:34 Dose: 5 mg Documented By: [id number] Admin: 07/03/22 19:57 Dose: 5 mg Documented By: [id number] Admin: 07/03/22 11:13 Dose: 5 mg Documented By: Admin: 07/03/22 04:43 Dose: 5 mg Documented By: [id number] Admin: 07/03/22 00:57 Dose: 5 mg Documented By: [id number] Admin: 07/02/22 12:31 Dose: 5 mg Documented By: SHAHRAM(2) Admin: 07/02/22 08:50 Dose: 5 mg Documented By: SHAHRAM(2) Admin: 07/01/22 14:52 Dose: 5 mg Documented By: YAN(2) Pantoprazole Sodium (Pantoprazole 40 Mg Tab) 40 mg PO BID JONATHAN Stop: 08/03/22 09:14 Last Admin: 07/05/22 09:08 Dose: 40 mg Documented By: SHAHRAM(2) Admin: 07/04/22 20:12 Dose: 40 mg Documented By: Admin: 07/04/22 09:57 Dose: 40 mg Documented By: ROXANNE Senna/Docusate Sodium (Docusate Sodium/Senna 50/8.6mg Tab) 1 tab PO QAM JONATHAN Stop: 07/31/22 08:59 Last Admin: 07/05/22 09:08 Dose: 1 tab Documented By: SHAHRAM(2) Admin: 07/04/22 07:48 Dose: 1 tab Documented By: Admin: 07/03/22 09:46 Dose: 1 tab Documented By: Admin: 07/02/22 08:49 Dose: 1 tab Documented By: SHAHRAM(2) Admin: 07/01/22 09:34 Dose: 1 tab Documented By: YAN(2) Sennosides (Senna 8.6 Mg Tab) 8.6 mg PO HS JONATHAN Stop: 07/30/22 21:48 Last Admin: 07/04/22 20:12 Dose: 8.6 mg Documented By: Admin: 07/03/22 20:01 Dose: 8.6 mg Documented By: [id number] Admin: 07/02/22 21:03 Dose: 8.6 mg Documented By: [id number] Admin: 07/01/22 20:46 Dose: 8.6 mg Documented By: Admin: 06/30/22 22:52 Dose: 8.6 mg Documented By: SAMUEL Sodium Chloride (Sodium Chlor 7% 4 Ml Neb) 4 ml NEB BIDR JONATHAN Stop: 08/03/22 18:59 Last Admin: 07/05/22 07:03 Dose: 4 ml Documented By: Admin: 07/04/22 19:14 Dose: 4 ml Documented By: SREEDHAR Tamsulosin HCl (Tamsulosin Hcl 0.4 Mg Cap) 0.4 mg PO QAM JONATHAN Stop: 07/31/22 08:59 Last Admin: 07/05/22 09:08 Dose: 0.4 mg Documented By: SHAHRAM(2) Admin: 07/04/22 07:48 Dose: 0.4 mg Documented By: Admin: 07/03/22 09:45 Dose: 0.4 mg Documented By: Admin: 07/02/22 08:49 Dose: 0.4 mg Documented By: SHAHRAM(2) Admin: 07/01/22 09:34 Dose: 0.4 mg Documented By: CAM(2) Vitamin D (Cholecalciferol 5,000 Units 125 Mcg Tab) 5,000 units PO QAM JONATHAN Stop: 07/31/22 08:59 Last Admin: 07/05/22 09:08 Dose: 5,000 units Documented By: CMF(2) Admin: 07/04/22 07:48 Dose: 5,000 units Documented By: Admin: 07/03/22 09:44 Dose: 5,000 units Documented By: Admin: 07/02/22 08:48 Dose: 5,000 units Documented By: CMF(2) Admin: 07/01/22 09:34 Dose: 5,000 units Documented By: YAN(2) Coding Level of Care Code 43232 IN/OBS CONSULT LVL 5,80M Diagnoses Encounter for assessment of decision-making capacity Z01.89 Advanced care planning/counseling discussion Z71.89 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
[2022-07-05] MEDS: MIRTAZAPINE TAB 15 MG TAB PO SCH (20:20)
[2022-07-05] MEDS: SENNA 8.6 MG TAB PO SCH (20:21)
[2022-07-05] MEDS: ENOXAPARIN INJ 40 MG/0.4 ML SYR SQ SCH (21:58)
[2022-07-06] MEDS: ACETAMINOPHEN 325 MG TAB PO PRN ×2 (00:19→22:07)
[2022-07-06] MEDS: DOXYCYCLINE HYCLATE 100 MG in DEXTROSE 5% 100 ML IV SCH ×2 (00:34→11:38)
--- NOTE | 2022-07-06 00:54 | Communication Note ---
Date of Service: July 06, 2022
[2022-07-06] MEDS ORDERED: AMIODARONE / D5W 360 MG/200 ML BAG IV STA (01:32)
[2022-07-06 01:42] LABS: Basophils # (auto) 0.01 K/uL (0-0.2); Basophils % (auto) 0.1 %; Hematocrit (blood only) 24.8 % (42.0-52.0); Hemoglobin 7.4 g/dl (14.0-18.0); Immature Granulocytes # (auto) 0.21 K/uL (0.01-0.20); Immature Granulocytes % (auto) 2.4 %; Mean Corpuscular Hemoglobin 23.1 pg (25.0-34.0); Mean Corpuscular Hgb Conc 29.8 g/dL (32.0-36.0); Mean Corpuscular Volume 77.3 fL (80.0-100.0); Mean Platelet Volume 9.8 fL (9.4-12.4); Monocytes # (auto) 0.39 K/uL (0.11-0.59); Monocytes % (auto) 4.5 %; Platelet Count 209 K/uL (130-400); RDW Standard Deviation 55.4 fL (36.4-46.3); Red Blood Count 3.21 M/uL (4.70-6.10); White Blood Count 8.71 K/ul (4.8-10.8)
[2022-07-06 02:01] LABS: BUN Creatinine Ratio 18.5 (10-20); Calcium 7.7 mg/dl (8.6-10.3); Creatinine Clr Calc Pharmacy 60.5 ml/min; Est GFR (African American) 64.1 ml/min; Est GFR (Non-African American) 55.3 ml/min; Magnesium 1.9 mg/dl (1.7-2.4); Potassium 4.2 mmol/L (3.5-5.1)
[2022-07-06 02:06] LABS: Troponin I High Sensitivity 5.9 pg/ml (0-20)
[2022-07-06 02:09] LABS: Partial Thromboplastin Time 29.1 Seconds (21.0-31.0)
[2022-07-06 02:20] LABS: Polychromasia 1+
[2022-07-06] MEDS ORDERED: MAGNESIUM SULFATE / D5W 1 GM/100 ML BAG IV ONE (02:59)
[2022-07-06] MEDS ORDERED: SODIUM CHLORIDE 0.9% 250 ML IV PRN ×2 (03:00→04:08)
[2022-07-06] MEDS: PIPERACILLIN/TAZOBACTAM 4.5 GM in DEXTROSE 5% 100 ML IV SCH ×3 (04:24→20:26)
[2022-07-06] MEDS: oxyCODONE HCL IR 5 MG TAB (IMMEDIATE RELEASE) PO PRN ×4 (06:22→19:53)
[2022-07-06] MEDS: LEVOTHYROXINE SODIUM 100 MCG TABLET PO SCH (06:23)
[2022-07-06] MEDS: ALBUT/IPRATROP 3MG/0.5MG NEB 3 ML VIAL NEB SCH ×3 (07:08→19:46)
[2022-07-06] MEDS: SODIUM CHLOR 7% 4 ML NEB NEB SCH ×2 (07:08→19:47)
[2022-07-06] MEDS: PANTOprazole 40 MG TAB PO SCH ×2 (09:36→20:28)
[2022-07-06] MEDS: TAMSULOSIN HCL 0.4 MG CAP PO SCH (09:36)
[2022-07-06] MEDS: MULTIVITAMIN TAB PO SCH (09:36)
[2022-07-06] MEDS: guaiFENesin 600 MG TABCR PO SCH ×2 (09:37→20:28)
[2022-07-06] MEDS: FUROSEMIDE 40 MG/4 ML VIAL IV SCH (09:37)
[2022-07-06] MEDS: CHOLECALCIFEROL 5,000 UNITS 125 MCG TAB PO SCH (09:38)
[2022-07-06] MEDS: CYANOCOBALAMIN (B-12) 500 MCG TABLET PO SCH (09:38)
[2022-07-06] MEDS: FOLIC ACID 1 MG TAB PO SCH (09:38)
[2022-07-06] MEDS: DOCUSATE SODIUM/SENNA 50/8.6MG TAB PO SCH (09:39)
[2022-07-06] MEDS: LACTULOSE SYRUP 10 GM/15 ML BTL 960 ML PO SCH ×2 (09:39→20:29)
--- NOTE | 2022-07-06 12:20 | Communication Note ---
Date of Service: July 06, 2022 Palliative Med Brief Note/Sign off Note Psych consult reviewed and appreciated. Mr. Mayfield does not desire a non aggressive plan of care. Even though he may not have more chemo he still wants all other aggressive interventions. He will need SNF placement for trial of rehab and ? re eval by [facility]ology after a few weeks of rehab to see if he may be reconsidered for more cancer directed therapy. He wants to stay a full code. In part this stems from a fear of dying as well as a general mistrust of the health system. In addition, he has repeatedly demonstrated a limited capacity for understanding the implications of his decisions though he understands the "big picture" context of "I have incurable disease." nevertheless, he cannot equate incurable with changing code status and demands to stay full code. I do not feel he has true decisional capacity given his continued consistent inconsistency with medical care. This may require ongoing re evaluation at SNF with a formal neurocog evaluation. For now, Palliative Medicine will sign off as patient does not have any acute IP Pall Med needs and has declined the majority of our interventions and recommendations. I am available for re engagement this admission if needed, please page or call me. Patient not seen, no charge submitted. Thank you for allowing us to participate in the ongoing care of this patient. Please don't hesitate to call or page with any additional concerns. Dr. Hanna Lazo DNP Director, Palliative Care
[2022-07-06] MEDS ORDERED: SENNA 8.6 MG TAB PO PRN (14:56)
[2022-07-06] MEDS: dexAMETHasone 6 MG in SYRINGE 0 ML IV SCH (14:59)
[2022-07-06] MEDS: ADVANCED PROBIOTIC 1250 MG CAPSULE PO SCH (16:20)
--- NOTE | 2022-07-06 20:06 | Hospitalist Progress Note ---
Date of Service July 06, 2022 Assessment & Plan (1) Acute hypercapnic respiratory failure: Plan: Acute hypercapnic respiratory failure H/O Metastatic mesothelioma COPD Right pleural effusion likely malignant Failure to thrive Pericardial effusion, diastolic heart failure likely contributing as well Recent COVID-19 infection --CT Chest:There is diffuse pleural thickening throughout the right hemithorax and consolidation of the right mid to lower lung. There is interstitial infiltrate throughout the remaining right upper lung. Consider neoplasm. There are multiple scattered pulmonary nodules in the left lung measuring up to 9 mm suggesting metastatic neoplasm. There is a small to moderate left pleural effusion layering 5 cm dependently mild adjacent left basilar atelectasis. Mild cardiomegaly and diffuse anasarca. Some component of CHF is suspected. -Procalcitonin 0.16 Follows with pulmonology and oncology at [place] Continue dexamethasone to complete 10-day course Appreciate pulmonology input Continue pulmonary hygiene, hypertonic saline Nebs Avoid narcotics as able Continue IV Zosyn, doxycycline>> transition to p.o. antibiotics as able Very poor prognosis Appreciate palliative care, psychiatry input Patient prefers to continue current management Plan to discharge to SNF as able Pericardial effusion NSVT -ECHO: Mild concentric LVH. No regional wall motion abnormalities. EF greater than 70%. Right ventricle is normal in size and function. Grade 1 diastolic dysfunction. No significant valvular disease. Aortic root is moderately enlarged with diameter 4.7 cm. Small circumferential pericardial effusion is present. There is circumferential echodensity in the pericardial space consistent with fibrinous strands or coagulum. Moderate size left pleural effusion. 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 torsemide (4) Anemia: Plan: Positive FOBT H/O hemorrhoids S/P 1 unit PRBCs Monitor H&H (5) Chronic diastolic heart failure: Plan: On IV Lasix>> p.o. torsemide Monitor volume status (6) COPD (chronic obstructive pulmonary disease): (7) COVID-19 virus infection: Plan: Noted to have COVID-19 virus infection with history of documented coronavirus on 05/21/2022 Ongoing cough No acute issues Saturating low 90s on room air Chronic cancer pain Hypothyroidism Continue levothyroxine Pain control as needed DVT Px: Lovenox SQ--refused on multiple occasions SCDs for now CODE STATUS Full code for now Palliative care consulted to address goals of care SNF as able Admission and Anticipated Discharge Date Admission Date: June 30, 2022 Subjective Patient is seen and examined at bedside States having back pain this morning Reports having some chest discomfort overnight which resolved this morning Denies any shortness of breath No significant cough Offers no other complaints Denies any chest pain, dyspnea, dizziness, nausea, abdominal pain Very poor prognosis Review of Systems Review of Systems: All systems reviewed & are unremarkable except as noted in Subjective Physical Exam Physical Exam: Physical Exam: Vitals signs as noted above General Appearance:Moderately built and nourished, no apparent distress, Chronic ill appearing Head: normocephalic, Atraumatic Eyes: normal inspection, EOMI Neck: supple, Trachea midline Respiratory/Chest: Decreased breath sounds, basal crackles, No accessory muscle use Cardiovascular: S1, S2, No murmur Abdomen/GI:Soft, Non tender, Bowel sounds present Extremities/Musculoskeletal:normal inspection, 1+ Pedal edema Neurologic/Psych:AAOX2, grossly no focal neurological deficits Skin: normal color, warm Results & Data Results & Data Vital Signs (Past 12 Hours) Vital Signs Temp Pulse Resp BP Pulse Ox 07/06/22 15:44 83 07/06/22 10:50 98 07/06/22 09:56 36.6 C 76 16 109/73 97 07/06/22 09:25 36.6 C 81 18 115/80 97 07/06/22 08:25 36.6 C 86 16 99/56 L 98 Laboratory Results Short CBC 07/06/22 Range/Units 01:25 WBC 8.71 (4.8-10.8) K/ul Hgb 7.4 L (14.0-18.0) g/dl Hct 24.8 L (42.0-52.0) % Plt Count 209 (130-400) K/uL BMP 05/05/23 01:25 Sodium 138 Potassium 4.2 Chloride 100 Carbon Dioxide 32 BUN 24 H Creatinine 1.30 Glucose 112 H Calcium 7.7 L
[2022-07-06] MEDS: DOXYCYCLINE HYCLATE 100 MG CAP PO SCH (20:28)
[2022-07-06] MEDS: MIRTAZAPINE TAB 15 MG TAB PO SCH (20:29)
--- NOTE | 2022-07-06 21:57 | Electrocardiogram Report ---
Test Reason : Blood Pressure : / mmHG Vent. Rate : 097 BPM Atrial Rate : 097 BPM P-R Int : 182 ms QRS Dur : 078 ms QT Int : 356 ms P-R-T Axes : 017 057 062 degrees QTc Int : 452 ms Sinus rhythm with occasional Premature ventricular complexes Low voltage QRS Borderline ECG When compared with ECG of 03-JUL-2022 14:47, Premature ventricular complexes are now Present Confirmed by Bradley Coleman ([id number]) on 07/06/2022 9:57:21 PM Referred By: [facility] Confirmed By:Bradley Coleman
[2022-07-07] MEDS: oxyCODONE HCL IR 5 MG TAB (IMMEDIATE RELEASE) PO PRN ×5 (00:01→19:30)
[2022-07-07] MEDS: PIPERACILLIN/TAZOBACTAM 4.5 GM in DEXTROSE 5% 100 ML IV SCH ×3 (03:52→21:23)
[2022-07-07] MEDS: LEVOTHYROXINE SODIUM 100 MCG TABLET PO SCH (06:23)
[2022-07-07] MEDS: SODIUM CHLOR 7% 4 ML NEB NEB SCH ×2 (07:11→20:07)
[2022-07-07] MEDS: ALBUT/IPRATROP 3MG/0.5MG NEB 3 ML VIAL NEB SCH ×2 (07:11→20:07)
[2022-07-07 07:51] LABS: Hematocrit (blood only) 30.3 % (42.0-52.0); Hemoglobin 9.3 g/dl (14.0-18.0)
[2022-07-07 08:08] LABS: BUN Creatinine Ratio 21.2 (10-20); Calcium 7.6 mg/dl (8.6-10.3); Creatinine Clr Calc Pharmacy 67.3 ml/min; Est GFR (Non-African American) 62.2 ml/min; Potassium 3.7 mmol/L (3.5-5.1)
[2022-07-07] MEDS: PANTOprazole 40 MG TAB PO SCH ×2 (08:17→21:24)
[2022-07-07] MEDS: CYANOCOBALAMIN (B-12) 500 MCG TABLET PO SCH (08:17)
[2022-07-07] MEDS: MULTIVITAMIN TAB PO SCH (08:17)
[2022-07-07] MEDS: FOLIC ACID 1 MG TAB PO SCH (08:17)
[2022-07-07] MEDS: CHOLECALCIFEROL 5,000 UNITS 125 MCG TAB PO SCH (08:17)
[2022-07-07] MEDS: guaiFENesin 600 MG TABCR PO SCH ×2 (08:17→21:25)
[2022-07-07] MEDS: TAMSULOSIN HCL 0.4 MG CAP PO SCH (08:18)
[2022-07-07] MEDS: ADVANCED PROBIOTIC 1250 MG CAPSULE PO SCH (08:18)
[2022-07-07] MEDS: DOXYCYCLINE HYCLATE 100 MG CAP PO SCH ×2 (08:18→21:24)
[2022-07-07] MEDS: TORSEMIDE 10 MG TAB PO SCH (08:18)
[2022-07-07] MEDS: DOCUSATE SODIUM/SENNA 50/8.6MG TAB PO SCH (08:18)
[2022-07-07] MEDS: LACTULOSE SYRUP 10 GM/15 ML BTL 960 ML PO SCH ×2 (08:18→21:26)
[2022-07-07] MEDS: ACETAMINOPHEN 325 MG TAB PO PRN (12:44)
[2022-07-07] MEDS: dexAMETHasone 6 MG in SYRINGE 0 ML IV SCH (15:33)
--- NOTE | 2022-07-07 16:46 | Hospitalist Progress Note ---
Date of Service July 07, 2022 Assessment & Plan (1) Acute hypercapnic respiratory failure: Plan: Acute hypercapnic respiratory failure H/O Metastatic mesothelioma COPD Right pleural effusion likely malignant Failure to thrive Pericardial effusion, diastolic heart failure likely contributing as well Recent COVID-19 infection --CT Chest:There is diffuse pleural thickening throughout the right hemithorax and consolidation of the right mid to lower lung. There is interstitial infiltrate throughout the remaining right upper lung. Consider neoplasm. There are multiple scattered pulmonary nodules in the left lung measuring up to 9 mm suggesting metastatic neoplasm. There is a small to moderate left pleural effusion layering 5 cm dependently mild adjacent left basilar atelectasis. Mild cardiomegaly and diffuse anasarca. Some component of CHF is suspected. -Procalcitonin 0.16 Follows with pulmonology and oncology at [place] Continue dexamethasone to complete 10-day course Appreciate pulmonology input Continue pulmonary hygiene, hypertonic saline Nebs Avoid narcotics as able Continue IV Zosyn, doxycycline>> transition to p.o. antibiotics Very poor prognosis Appreciate palliative care, psychiatry input Patient prefers to continue current management Plan to discharge to SNF as able We will complete IV Zosyn course tomorrow Waiting for placement Pericardial effusion NSVT -ECHO: Mild concentric LVH. No regional wall motion abnormalities. EF greater than 70%. Right ventricle is normal in size and function. Grade 1 diastolic dysfunction. No significant valvular disease. Aortic root is moderately enlarged with diameter 4.7 cm. Small circumferential pericardial effusion is present. There is circumferential echodensity in the pericardial space consistent with fibrinous strands or coagulum. Moderate size left pleural effusion. 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 torsemide (4) Anemia: Plan: Positive FOBT H/O hemorrhoids S/P 1 unit PRBCs Monitor H&H (5) Chronic diastolic heart failure: Plan: On IV Lasix>> p.o. torsemide Monitor volume status (6) COPD (chronic obstructive pulmonary disease): (7) COVID-19 virus infection: Plan: Noted to have COVID-19 virus infection with history of documented coronavirus on 05/21/2022 Ongoing cough No acute issues Saturating well on room air Chronic cancer pain Hypothyroidism Continue levothyroxine Pain control as needed DVT Px: Lovenox SQ--refused on multiple occasions SCDs for now CODE STATUS Full code for now Palliative care consulted to address goals of care SNF as able Admission and Anticipated Discharge Date Admission Date: June 30, 2022 Subjective Patient is seen and examined at bedside States having diarrhea Also reports chronic back pain No other complaints No significant cough NSVTs on Monitor Very poor prognosis Discussed with Cardiology today Review of Systems Review of Systems: All systems reviewed & are unremarkable except as noted in Subjective Physical Exam Physical Exam: Physical Exam: Vitals signs as noted above General Appearance:Moderately built and nourished, no apparent distress, Chronic ill appearing Head: normocephalic, Atraumatic Eyes: normal inspection, EOMI Neck: supple, Trachea midline Respiratory/Chest: Decreased breath sounds, CTA, No accessory muscle use Cardiovascular: S1, S2, No murmur Abdomen/GI:Soft, Non tender, Bowel sounds present Extremities/Musculoskeletal:normal inspection, 1+ Pedal edema Neurologic/Psych:AAOX2, grossly no focal neurological deficits Skin: normal color, warm Results & Data Results & Data Vital Signs (Past 12 Hours) Vital Signs Temp Pulse Pulse Resp BP BP Pulse Ox 07/07/22 15:33 37.1 C 83 16 103/71 95 07/07/22 15:26 92 H 07/07/22 11:29 36.3 C L 88 18 103/68 92 07/07/22 08:00 07/07/22 07:50 85 07/07/22 07:45 36.4 C L 66 17 92/63 L 99 O2 Del Method 07/07/22 15:33 Room Air 07/07/22 15:26 07/07/22 11:29 Room Air 07/07/22 08:00 Room Air 07/07/22 07:50 07/07/22 07:45 Room Air Laboratory Results Short CBC 07/07/22 Range/Units 07:20 Hgb 9.3 L (14.0-18.0) g/dl Hct 30.3 L (42.0-52.0) % BMP 07/07/22 07:20 Sodium 139 Potassium 3.7 Chloride 100 Carbon Dioxide 33 H BUN 25 H Creatinine 1.18 Glucose 83 Calcium 7.6 L
[2022-07-07] MEDS: MIRTAZAPINE TAB 15 MG TAB PO SCH (21:24)
[2022-07-08] MEDS: oxyCODONE HCL IR 5 MG TAB (IMMEDIATE RELEASE) PO PRN ×4 (00:39→20:57)
[2022-07-08] MEDS: LEVOTHYROXINE SODIUM 100 MCG TABLET PO SCH (06:21)
[2022-07-08 06:27] LABS: Hemoglobin 9.2 g/dl (14.0-18.0); Mean Corpuscular Hemoglobin 24.6 pg (25.0-34.0); Mean Corpuscular Hgb Conc 30.7 g/dL (32.0-36.0); Mean Corpuscular Volume 80.2 fL (80.0-100.0); Mean Platelet Volume 10.2 fL (9.4-12.4); Platelet Count 243 K/uL (130-400); RDW Coefficient of Variation 20.6 % (11.5-14.5); RDW Standard Deviation 58.9 fL (36.4-46.3); Red Blood Count 3.74 M/uL (4.70-6.10)
[2022-07-08] MEDS: ALBUT/IPRATROP 3MG/0.5MG NEB 3 ML VIAL NEB SCH ×2 (06:54→20:19)
[2022-07-08] MEDS: SODIUM CHLOR 7% 4 ML NEB NEB SCH ×2 (06:54→20:19)
[2022-07-08 07:20] LABS: BUN Creatinine Ratio 23.1 (10-20); Calcium 7.5 mg/dl (8.6-10.3); Creatinine Clr Calc Pharmacy 73.4 ml/min; Est GFR (African American) 80.2 ml/min; Est GFR (Non-African American) 69.2 ml/min; Potassium 3.6 mmol/L (3.5-5.1)
[2022-07-08] MEDS ORDERED: POTASSIUM CHLORIDE CRTAB 20 MEQ TABCR PO ONE (08:27)
[2022-07-08] MEDS: DOXYCYCLINE HYCLATE 100 MG CAP PO SCH ×2 (08:49→21:17)
[2022-07-08] MEDS: PANTOprazole 40 MG TAB PO SCH ×2 (08:49→21:17)
[2022-07-08] MEDS: FOLIC ACID 1 MG TAB PO SCH (08:49)
[2022-07-08] MEDS: guaiFENesin 600 MG TABCR PO SCH ×2 (08:49→21:17)
[2022-07-08] MEDS: MULTIVITAMIN TAB PO SCH (08:49)
[2022-07-08] MEDS: LACTULOSE SYRUP 10 GM/15 ML BTL 960 ML PO SCH ×2 (08:50→21:18)
[2022-07-08] MEDS: ADVANCED PROBIOTIC 1250 MG CAPSULE PO SCH (08:50)
[2022-07-08] MEDS: CYANOCOBALAMIN (B-12) 500 MCG TABLET PO SCH (08:50)
[2022-07-08] MEDS: TAMSULOSIN HCL 0.4 MG CAP PO SCH (08:50)
[2022-07-08] MEDS: TORSEMIDE 10 MG TAB PO SCH (08:50)
[2022-07-08] MEDS: CHOLECALCIFEROL 5,000 UNITS 125 MCG TAB PO SCH (08:50)
[2022-07-08] MEDS: METOPROLOL TARTRATE 25 MG TAB PO SCH ×2 (09:38→21:25)
--- NOTE | 2022-07-08 15:20 | Hospitalist Progress Note ---
Date of Service July 08, 2022 Assessment & Plan (1) Acute hypercapnic respiratory failure: Plan: Acute hypercapnic respiratory failure H/O Metastatic mesothelioma COPD Right pleural effusion likely malignant Failure to thrive Pericardial effusion, diastolic heart failure likely contributing as well Recent COVID-19 infection --CT Chest:There is diffuse pleural thickening throughout the right hemithorax and consolidation of the right mid to lower lung. There is interstitial infiltrate throughout the remaining right upper lung. Consider neoplasm. There are multiple scattered pulmonary nodules in the left lung measuring up to 9 mm suggesting metastatic neoplasm. There is a small to moderate left pleural effusion layering 5 cm dependently mild adjacent left basilar atelectasis. Mild cardiomegaly and diffuse anasarca. Some component of CHF is suspected. -Procalcitonin 0.16 Follows with pulmonology and oncology at [place] Continue dexamethasone to complete 10-day course Appreciate pulmonology input Continue pulmonary hygiene, hypertonic saline Nebs Avoid narcotics as able Continue IV Zosyn, doxycycline>> transitioned to p.o. antibiotics Completed 7 day Zosyn course Very poor prognosis Appreciate palliative care, psychiatry input Patient prefers to continue current management Waiting for placement Pericardial effusion NSVT -ECHO: Mild concentric LVH. No regional wall motion abnormalities. EF greater than 70%. Right ventricle is normal in size and function. Grade 1 diastolic dysfunction. No significant valvular disease. Aortic root is moderately enlarged with diameter 4.7 cm. Small circumferential pericardial effusion is present. There is circumferential echodensity in the pericardial space consistent with fibrinous strands or coagulum. Moderate size left pleural effusion. 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 torsemide (4) Anemia: Plan: Positive FOBT H/O hemorrhoids S/P 1 unit PRBCs Monitor H&H (5) Chronic diastolic heart failure: Plan: On IV Lasix>> p.o. torsemide Monitor volume status (6) COPD (chronic obstructive pulmonary disease): (7) COVID-19 virus infection: Plan: Noted to have COVID-19 virus infection with history of documented coronavirus on 05/21/2022 Ongoing cough No acute issues Saturating well on room air Chronic cancer pain Hypothyroidism Continue levothyroxine Pain control as needed DVT Px: Lovenox SQ--refused on multiple occasions SCDs for now CODE STATUS Full code for now Palliative care consulted to address goals of care SNF as able Admission and Anticipated Discharge Date Admission Date: June 30, 2022 Subjective Patient is seen and examined at bedside Diarrhea improving Reports chronic back pain In sinus this morning Blood pressure better today No new complaints Waiting for placement Denies any chest pain, dyspnea, dizziness, nausea, abdominal pain Cough much improved Review of Systems Review of Systems: All systems reviewed & are unremarkable except as noted in Subjective Physical Exam Physical Exam: Physical Exam: Vitals signs as noted above General Appearance:Moderately built and nourished, no apparent distress, Chronic ill appearing Head: normocephalic, Atraumatic Eyes: normal inspection, EOMI Neck: supple, Trachea midline Respiratory/Chest: Decreased breath sounds, CTA, No accessory muscle use Cardiovascular: S1, S2, No murmur Abdomen/GI:Soft, Non tender, Bowel sounds present Extremities/Musculoskeletal:normal inspection, 1+ Pedal edema Neurologic/Psych:AAOX2, grossly no focal neurological deficits Skin: normal color, warm Results & Data Results & Data Vital Signs (Past 12 Hours) Vital Signs Temp Pulse Pulse Resp BP Pulse Ox O2 Del Method 07/08/22 11:43 36.8 C 85 18 99/67 L 95 Room Air 07/08/22 07:45 77 07/08/22 07:45 Room Air 07/08/22 07:14 36.4 C L 75 19 120/80 96 Room Air Laboratory Results Short CBC 07/08/22 Range/Units 05:33 WBC 10.70 (4.8-10.8) K/ul Hgb 9.2 L (14.0-18.0) g/dl Hct 30.0 L (42.0-52.0) % Plt Count 243 (130-400) K/uL BMP 07/08/22 05:33 Sodium 139 Potassium 3.6 Chloride 102 Carbon Dioxide 33 H BUN 25 H Creatinine 1.08 Glucose 67 L Calcium 7.5 L
[2022-07-08] MEDS: dexAMETHasone 6 MG in SYRINGE 0 ML IV SCH (15:44)
[2022-07-08] MEDS: BENZONATATE 100 MG CAPSULE PO PRN (21:17)
[2022-07-08] MEDS: MIRTAZAPINE TAB 15 MG TAB PO SCH (21:17)
[2022-07-08] MEDS ORDERED: MELATONIN 3 MG TAB PO PRN (23:30)
[2022-07-09] MEDS: oxyCODONE HCL IR 5 MG TAB (IMMEDIATE RELEASE) PO PRN ×3 (05:47→20:02)
[2022-07-09] MEDS: LEVOTHYROXINE SODIUM 100 MCG TABLET PO SCH (05:47)
[2022-07-09] MEDS: SODIUM CHLOR 7% 4 ML NEB NEB SCH ×2 (07:13→19:14)
[2022-07-09] MEDS: ALBUT/IPRATROP 3MG/0.5MG NEB 3 ML VIAL NEB SCH ×2 (07:13→19:14)
[2022-07-09] MEDS: METOPROLOL TARTRATE 25 MG TAB PO SCH ×2 (07:47→20:03)
[2022-07-09] MEDS: MULTIVITAMIN TAB PO SCH (07:52)
[2022-07-09] MEDS: PANTOprazole 40 MG TAB PO SCH ×2 (07:52→20:02)
[2022-07-09] MEDS: TORSEMIDE 10 MG TAB PO SCH (07:52)
[2022-07-09] MEDS: CHOLECALCIFEROL 5,000 UNITS 125 MCG TAB PO SCH (07:52)
[2022-07-09] MEDS: guaiFENesin 600 MG TABCR PO SCH ×2 (07:53→20:04)
[2022-07-09] MEDS: CYANOCOBALAMIN (B-12) 500 MCG TABLET PO SCH (07:53)
[2022-07-09] MEDS: DOXYCYCLINE HYCLATE 100 MG CAP PO SCH ×2 (07:53→20:04)
[2022-07-09 07:54] LABS: BUN Creatinine Ratio 24.3 (10-20); Calcium 7.8 mg/dl (8.6-10.3); Est GFR (African American) 81.1 ml/min; Magnesium 1.7 mg/dl (1.7-2.4); Potassium 3.5 mmol/L (3.5-5.1)
[2022-07-09] MEDS: TAMSULOSIN HCL 0.4 MG CAP PO SCH (07:54)
[2022-07-09] MEDS: FOLIC ACID 1 MG TAB PO SCH (07:54)
[2022-07-09] MEDS: LACTULOSE SYRUP 10 GM/15 ML BTL 960 ML PO SCH ×2 (07:54→20:04)
[2022-07-09] MEDS: ADVANCED PROBIOTIC 1250 MG CAPSULE PO SCH (07:54)
[2022-07-09] MEDS ORDERED: MAGNESIUM SULFATE / D5W 1 GM/100 ML BAG IV ONE (08:55)
[2022-07-09] MEDS ORDERED: POTASSIUM CHLORIDE CRTAB 20 MEQ TABCR PO ONE (08:56)
[2022-07-09] MEDS: dexAMETHasone 6 MG in SYRINGE 0 ML IV SCH (15:02)
--- NOTE | 2022-07-09 16:52 | Hospitalist Progress Note ---
Date of Service July 09, 2022 Assessment & Plan (1) Acute hypercapnic respiratory failure: Plan: Acute hypercapnic respiratory failure H/O Metastatic mesothelioma COPD Right pleural effusion likely malignant Failure to thrive Pericardial effusion, diastolic heart failure likely contributing as well Recent COVID-19 infection --CT Chest:There is diffuse pleural thickening throughout the right hemithorax and consolidation of the right mid to lower lung. There is interstitial infiltrate throughout the remaining right upper lung. Consider neoplasm. There are multiple scattered pulmonary nodules in the left lung measuring up to 9 mm suggesting metastatic neoplasm. There is a small to moderate left pleural effusion layering 5 cm dependently mild adjacent left basilar atelectasis. Mild cardiomegaly and diffuse anasarca. Some component of CHF is suspected. -Procalcitonin 0.16 Follows with pulmonology and oncology at [place] Continue dexamethasone to complete 10-day course Appreciate pulmonology input Continue pulmonary hygiene, hypertonic saline Nebs Avoid narcotics as able Continue IV Zosyn, doxycycline>> transitioned to p.o. antibiotics Completed 7 day Zosyn course Very poor prognosis Appreciate palliative care, psychiatry input Patient prefers to remain full code We will recommend to follow-up with oncology upon discharge Waiting for placement Pericardial effusion NSVT -ECHO: Mild concentric LVH. No regional wall motion abnormalities. EF greater than 70%. Right ventricle is normal in size and function. Grade 1 diastolic dysfunction. No significant valvular disease. Aortic root is moderately enlarged with diameter 4.7 cm. Small circumferential pericardial effusion is present. There is circumferential echodensity in the pericardial space consistent with fibrinous strands or coagulum. Moderate size left pleural effusion. 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 torsemide (4) Anemia: Plan: Positive FOBT H/O hemorrhoids S/P 2 unit PRBCs Monitor H&H (5) Chronic diastolic heart failure: Plan: On IV Lasix>> p.o. torsemide Monitor volume status (6) COPD (chronic obstructive pulmonary disease): (7) COVID-19 virus infection: Plan: Noted to have COVID-19 virus infection with history of documented coronavirus on 05/21/2022 Ongoing cough No acute issues Saturating well on room air Chronic cancer pain Hypothyroidism Continue levothyroxine Pain control as needed DVT Px: Lovenox SQ--refused on multiple occasions SCDs for now CODE STATUS Full code for now Palliative care consulted to address goals of care SNF as able Admission and Anticipated Discharge Date Admission Date: June 30, 2022 Subjective Patient is seen and examined at bedside No new complaints Prefers [place] to be discontinued Multiple NSVT's on monitor Updated patient's daughter at bedside Reports chronic back pain Denies any chest pain, dyspnea, dizziness, nausea, abdominal pain Waiting for placement Review of Systems Review of Systems: All systems reviewed & are unremarkable except as noted in Subjective Physical Exam Physical Exam: Physical Exam: Vitals signs as noted above General Appearance:Moderately built and nourished, no apparent distress, Chronic ill appearing Head: normocephalic, Atraumatic Eyes: normal inspection, EOMI Neck: supple, Trachea midline Respiratory/Chest: Decreased breath sounds, CTA, No accessory muscle use Cardiovascular: S1, S2, No murmur Abdomen/GI:Soft, Non tender, Bowel sounds present Extremities/Musculoskeletal:normal inspection, 1+ Pedal edema Neurologic/Psych:AAOX2, grossly no focal neurological deficits Skin: normal color, warm Results & Data Results & Data Vital Signs (Past 12 Hours) Vital Signs Temp Pulse Pulse Pulse Resp BP BP 07/09/22 15:23 88 07/09/22 12:22 115/64 07/09/22 10:50 36.7 C 71 17 101/79 07/09/22 09:39 76 07/09/22 08:56 07/09/22 07:24 36.6 C 79 16 112/84 Pulse Ox O2 Del Method 07/09/22 15:23 07/09/22 12:22 07/09/22 10:50 91 Room Air 07/09/22 09:39 07/09/22 08:56 Room Air 07/09/22 07:24 94 Room Air Laboratory Results [facility] 07/09/22 07:04 Sodium 141 Potassium 3.5 Chloride 102 Carbon Dioxide 34 H BUN 26 H Creatinine 1.07 Glucose 85 Calcium 7.8 L
[2022-07-09] MEDS: MIRTAZAPINE TAB 15 MG TAB PO SCH (20:03)
[2022-07-10] MEDS: LEVOTHYROXINE SODIUM 100 MCG TABLET PO SCH (05:37)
[2022-07-10] MEDS: oxyCODONE HCL IR 5 MG TAB (IMMEDIATE RELEASE) PO PRN ×3 (05:39→19:35)
[2022-07-10] MEDS: SODIUM CHLOR 7% 4 ML NEB NEB SCH ×2 (06:57→19:27)
[2022-07-10] MEDS: ALBUT/IPRATROP 3MG/0.5MG NEB 3 ML VIAL NEB SCH ×2 (06:57→19:26)
[2022-07-10 07:13] LABS: Hematocrit (blood only) 28.7 % (42.0-52.0); Hemoglobin 8.6 g/dl (14.0-18.0)
[2022-07-10 07:23] LABS: BUN Creatinine Ratio 26.9 (10-20); Calcium 7.6 mg/dl (8.6-10.3); Est GFR (African American) 83.9 ml/min; Est GFR (Non-African American) 72.4 ml/min; Potassium 3.9 mmol/L (3.5-5.1)
[2022-07-10] MEDS: CHOLECALCIFEROL 5,000 UNITS 125 MCG TAB PO SCH (08:56)
[2022-07-10] MEDS: CYANOCOBALAMIN (B-12) 500 MCG TABLET PO SCH (08:56)
[2022-07-10] MEDS: dexAMETHasone 6 MG in SYRINGE 0 ML IV SCH (08:59)
[2022-07-10] MEDS: guaiFENesin 600 MG TABCR PO SCH ×2 (09:00→20:51)
[2022-07-10] MEDS: FOLIC ACID 1 MG TAB PO SCH (09:00)
[2022-07-10] MEDS: ADVANCED PROBIOTIC 1250 MG CAPSULE PO SCH (09:01)
[2022-07-10] MEDS: LACTULOSE SYRUP 10 GM/15 ML BTL 960 ML PO SCH ×2 (09:01→20:51)
[2022-07-10] MEDS: PANTOprazole 40 MG TAB PO SCH ×2 (09:02→20:51)
[2022-07-10] MEDS: MULTIVITAMIN TAB PO SCH (09:02)
[2022-07-10] MEDS: TORSEMIDE 10 MG TAB PO SCH (09:03)
[2022-07-10] MEDS: TAMSULOSIN HCL 0.4 MG CAP PO SCH (09:03)
[2022-07-10] MEDS: METOPROLOL TARTRATE 25 MG TAB PO SCH ×3 (09:06→20:50)
--- NOTE | 2022-07-10 17:01 | Hospitalist Progress Note ---
Date of Service July 10, 2022 Assessment & Plan (1) Acute hypercapnic respiratory failure: Plan: Acute hypercapnic respiratory failure H/O Metastatic mesothelioma COPD Right pleural effusion likely malignant Failure to thrive Pericardial effusion, diastolic heart failure likely contributing as well Recent COVID-19 infection --CT Chest:There is diffuse pleural thickening throughout the right hemithorax and consolidation of the right mid to lower lung. There is interstitial infiltrate throughout the remaining right upper lung. Consider neoplasm. There are multiple scattered pulmonary nodules in the left lung measuring up to 9 mm suggesting metastatic neoplasm. There is a small to moderate left pleural effusion layering 5 cm dependently mild adjacent left basilar atelectasis. Mild cardiomegaly and diffuse anasarca. Some component of CHF is suspected. -Procalcitonin 0.16 Follows with pulmonology and oncology at [place] Continue dexamethasone to complete 10-day course Appreciate pulmonology input Continue pulmonary hygiene, hypertonic saline Nebs Avoid narcotics as able Continue IV Zosyn, doxycycline>> completed the antibiotic course Very poor prognosis Appreciate palliative care, psychiatry input Patient prefers to remain full code Will need follow-up with oncology upon discharge Waiting for placement Continue current management Pericardial effusion NSVT -ECHO: Mild concentric LVH. No regional wall motion abnormalities. EF greater than 70%. Right ventricle is normal in size and function. Grade 1 diastolic dysfunction. No significant valvular disease. Aortic root is moderately enlarged with diameter 4.7 cm. Small circumferential pericardial effusion is present. There is circumferential echodensity in the pericardial space consistent with fibrinous strands or coagulum. Moderate size left pleural effusion. 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 torsemide (4) Anemia: Plan: Positive FOBT H/O hemorrhoids S/P 2 unit PRBCs Monitor H&H (5) Chronic diastolic heart failure: Plan: On IV Lasix>> p.o. torsemide Monitor volume status (6) COPD (chronic obstructive pulmonary disease): (7) COVID-19 virus infection: Plan: Noted to have COVID-19 virus infection with history of documented coronavirus on 05/21/2022 Ongoing cough No acute issues Saturating well on room air Chronic cancer pain Hypothyroidism Continue levothyroxine Pain control as needed DVT Px: Lovenox SQ--refused on multiple occasions SCDs for now CODE STATUS Full code for now Palliative care consulted to address goals of care SNF when accepted Admission and Anticipated Discharge Date Admission Date: June 30, 2022 Subjective Patient is seen and examined at bedside Offers no complaints this morning Lying comfortably in bed Feels about the same as yesterday Still has NSVT's intermittently Blood pressure relatively low Tolerating current dose of metoprolol Reports chronic back pain Denies any chest pain, dyspnea, dizziness, nausea, abdominal pain Waiting for placement Review of Systems Review of Systems: All systems reviewed & are unremarkable except as noted in Subjective Physical Exam Physical Exam: Physical Exam: Vitals signs as noted above General Appearance:Moderately built and nourished, no apparent distress, Chronic ill appearing Head: normocephalic, Atraumatic Eyes: normal inspection, EOMI Neck: supple, Trachea midline Respiratory/Chest: Decreased breath sounds, CTA, No accessory muscle use Cardiovascular: S1, S2, No murmur Abdomen/GI:Soft, Non tender, Bowel sounds present Extremities/Musculoskeletal:normal inspection, 1+ Pedal edema Neurologic/Psych:AAOX2, grossly no focal neurological deficits Skin: normal color, warm Results & Data Results & Data Vital Signs (Past 12 Hours) Vital Signs Temp Pulse Pulse Resp BP BP Pulse Ox 07/10/22 15:53 36.8 C 80 20 103/79 96 07/10/22 14:52 75 07/10/22 06:00 81 07/10/22 11:00 37.1 C 89 18 95/72 L 92 07/10/22 08:00 07/10/22 09:03 93/65 L 07/10/22 07:45 36.8 C 85 18 107/76 97 07/10/22 06:57 78 20 93 O2 Del Method 07/10/22 15:53 Room Air 07/10/22 14:52 07/10/22 06:00 07/10/22 11:00 Room Air 07/10/22 08:00 Room Air 07/10/22 09:03 07/10/22 07:45 Room Air 07/10/22 06:57 Room Air Laboratory Results Short CBC 07/10/22 Range/Units 06:03 Hgb 8.6 L (14.0-18.0) g/dl Hct 28.7 L (42.0-52.0) % BMP 07/10/22 06:03 Sodium 142 Potassium 3.9 Chloride 104 Carbon Dioxide 32 BUN 28 H Creatinine 1.04 Glucose 111 H Calcium 7.6 L
[2022-07-10] MEDS: ACETAMINOPHEN 325 MG TAB PO PRN (19:47)
[2022-07-10] MEDS: MIRTAZAPINE TAB 15 MG TAB PO SCH (20:51)
[2022-07-11] MEDS: guaiFENesin 600 MG TABCR PO SCH ×3 (00:02→20:49)
[2022-07-11] MEDS: METOPROLOL TARTRATE 25 MG TAB PO SCH ×3 (00:02→20:50)
[2022-07-11] MEDS: PANTOprazole 40 MG TAB PO SCH ×3 (00:03→20:49)
[2022-07-11] MEDS: MIRTAZAPINE TAB 15 MG TAB PO SCH ×2 (00:03→20:49)
[2022-07-11] MEDS: oxyCODONE HCL IR 5 MG TAB (IMMEDIATE RELEASE) PO PRN ×4 (04:17→21:30)
[2022-07-11] MEDS: LEVOTHYROXINE SODIUM 100 MCG TABLET PO SCH (05:57)
[2022-07-11 06:14] LABS: Hemoglobin 8.9 g/dl (14.0-18.0)
[2022-07-11 06:31] LABS: BUN Creatinine Ratio 26.2 (10-20); Calcium 7.8 mg/dl (8.6-10.3); Creatinine Clr Calc Pharmacy 74.2 ml/min; Est GFR (African American) 81.1 ml/min; Magnesium 1.7 mg/dl (1.7-2.4)
[2022-07-11] MEDS: ALBUT/IPRATROP 3MG/0.5MG NEB 3 ML VIAL NEB SCH ×2 (07:04→19:39)
[2022-07-11] MEDS: SODIUM CHLOR 7% 4 ML NEB NEB SCH ×2 (07:04→19:40)
[2022-07-11] MEDS: ADVANCED PROBIOTIC 1250 MG CAPSULE PO SCH (10:42)
[2022-07-11] MEDS: MULTIVITAMIN TAB PO SCH (10:42)
[2022-07-11] MEDS: CHOLECALCIFEROL 5,000 UNITS 125 MCG TAB PO SCH (10:42)
[2022-07-11] MEDS: FOLIC ACID 1 MG TAB PO SCH (10:43)
[2022-07-11] MEDS: TAMSULOSIN HCL 0.4 MG CAP PO SCH (10:43)
[2022-07-11] MEDS: LACTULOSE SYRUP 10 GM/15 ML BTL 960 ML PO SCH ×2 (10:46→20:49)
[2022-07-11] MEDS: TORSEMIDE 10 MG TAB PO SCH (10:46)
[2022-07-11] MEDS: CYANOCOBALAMIN (B-12) 500 MCG TABLET PO SCH (10:47)
[2022-07-11] MEDS: dexAMETHasone 6 MG in SYRINGE 0 ML IV SCH (10:48)
--- NOTE | 2022-07-11 14:09 | Hospitalist Progress Note ---
Date of Service July 11, 2022 Assessment & Plan (1) Acute hypercapnic respiratory failure: Plan: Acute hypercapnic respiratory failure H/O Metastatic mesothelioma COPD Right pleural effusion likely malignant Failure to thrive Pericardial effusion, diastolic heart failure likely contributing as well Recent COVID-19 infection --CT Chest:There is diffuse pleural thickening throughout the right hemithorax and consolidation of the right mid to lower lung. There is interstitial infiltrate throughout the remaining right upper lung. Consider neoplasm. There are multiple scattered pulmonary nodules in the left lung measuring up to 9 mm suggesting metastatic neoplasm. There is a small to moderate left pleural effusion layering 5 cm dependently mild adjacent left basilar atelectasis. Mild cardiomegaly and diffuse anasarca. Some component of CHF is suspected. -Procalcitonin 0.16 Follows with pulmonology and oncology at [place] Continue dexamethasone to complete 10-day course Continue pulmonary hygiene, hypertonic saline Nebs Avoid narcotics as able Continue IV Zosyn, doxycycline>> completed the antibiotic course Very poor prognosis Patient prefers to remain full code. Psychiatry evaluated the patient earlier in the hospitalization. He is deemed to have decision-making capacity. Palliative had extensive goals of care conversation; patient remains full code. Will need follow-up with oncology upon discharge Waiting for placement Continue current management Pericardial effusion NSVT -ECHO: Mild concentric LVH. No regional wall motion abnormalities. EF greater than 70%. Right ventricle is normal in size and function. Grade 1 diastolic dysfunction. No significant valvular disease. Aortic root is moderately enlarged with diameter 4.7 cm. Small circumferential pericardial effusion is present. There is circumferential echodensity in the pericardial space consistent with fibrinous strands or coagulum. Moderate size left pleural effusion. -Was started on amiodarone--discontinued given underlying lung disease, patient's preference/declined Appreciate cardiology input Tolerating current dose of metoprolol; lower burden of NSVT since beta-jolene placement. 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 torsemide (4) Anemia: Plan: Positive FOBT H/O hemorrhoids S/P 2 unit PRBCs Monitor H&H (5) Chronic diastolic heart failure: Plan: On IV Lasix>> p.o. torsemide Monitor volume status (6) COPD (chronic obstructive pulmonary disease): (7) COVID-19 virus infection: Plan: Noted to have COVID-19 virus infection with history of documented coronavirus on 05/21/2022 No acute issues Saturating well on room air Chronic cancer pain Hypothyroidism Continue levothyroxine Pain control as needed DVT Px: Lovenox SQ--refused on multiple occasions SCDs for now CODE STATUS Full code for now SNF when accepted Time spent evaluating patient, direct bedside care, chart review, placing orders, interpretation of diagnostic studies, discussion with consultants, patient, and family members, as well as other required patient management activities is 60 minutes. Please note the above document was generated using voice recognition software. It may contain grammatical, syntax or spelling errors. Any formal questions or concerns about the content, text or information contained within the body of this dictation should be directly addressed to the provider for clarification Admission and Anticipated Discharge Date Admission Date: June 30, 2022 Subjective Patient seen and examined at bedside. Is comfortably lying in the bed; not in distress. He denies any chest pain, shortness of breath, fever, abdominal pain. Telemetry shows few episodes of NSVT's. Overall, burden is decreased compared to previous days. Review of Systems Review of Systems: All systems reviewed & are unremarkable except as noted in Subjective Physical Exam Physical Exam: Physical Exam: Vitals signs as noted above General Appearance:Moderately built and nourished, no apparent distress, Chronic ill appearing Head: normocephalic, Atraumatic Eyes: normal inspection, EOMI Neck: supple, Trachea midline Respiratory/Chest: Decreased breath sounds, CTA, No accessory muscle use Cardiovascular: S1, S2, No murmur Abdomen/GI:Soft, Non tender, Bowel sounds present Extremities/Musculoskeletal:normal inspection, 1+ Pedal edema Neurologic/Psych:AAOX3, grossly no focal neurological deficits Skin: normal color, warm Results & Data Results & Data Vital Signs (Past 12 Hours) Vital Signs Temp Pulse Resp BP BP Pulse Ox O2 Del Method 07/11/22 11:46 36.8 C 103 H 28 H 93/71 L 93 Room Air 07/11/22 07:43 37.0 C 97 H 21 95/77 L 97 Room Air 07/11/22 07:37 Room Air 07/11/22 07:05 72 16 96 Room Air 07/11/22 02:34 36.6 C 76 20 104/76 97 Room Air Laboratory Results Laboratory Results WBC 10.70 K/ul (4.8-10.8) 07/08/22 05:33 RBC 3.74 M/uL (4.70-6.10) L 07/08/22 05:33 Hgb 8.9 g/dl (14.0-18.0) L 07/11/22 05:48 Hct 30.0 % (42.0-52.0) L 07/11/22 05:48 MCV 80.2 fL (80.0-100.0) 07/08/22 05:33 MCH 24.6 pg (25.0-34.0) L 07/08/22 05:33 MCHC 30.7 g/dL (32.0-36.0) L 07/08/22 05:33 RDW Std Deviation 58.9 fL (36.4-46.3) H 07/08/22 05:33 RDW Coeff of Julee 20.6 % (11.5-14.5) H 07/08/22 05:33 Plt Count 243 K/uL (130-400) 07/08/22 05:33 MPV 10.2 fL (9.4-12.4) 07/08/22 05:33 Immature Gran % (Auto) 2.4 % 07/06/22 01:25 Neut % (Auto) 85.0 % 07/06/22 01:25 Lymph % (Auto) 8.0 % 07/06/22 01:25 Towner % (Auto) 4.5 % 07/06/22 01:25 Eos % (Auto) 0.0 % 07/06/22 01:25 Baso % (Auto) 0.1 % 07/06/22 01:25 Neut # (Auto) 7.40 K/uL (1.40-6.50) H 07/06/22 01:25 Lymph # (Auto) 0.70 K/uL (1.2-3.4) L 07/06/22 01:25 Towner # (Auto) 0.39 K/uL (0.11-0.59) 07/06/22 01:25 Eos # (Auto) 0.00 K/uL (0-0.50) 07/06/22 01:25 Baso # (Auto) 0.01 K/uL (0-0.2) 07/06/22 01:25 Immature Gran # (Auto) 0.21 K/uL (0.01-0.20) H 07/06/22 01:25 RBC Morphology Unremarkable 07/02/22 06:45 Polychromasia 1+ 07/06/22 01:25 Hypochromasia Present 07/01/22 05:30 APTT 29.1 Seconds (21.0-31.0) 07/06/22 01:25 PTT Ratio 1.0 07/06/22 01:25 ABG pH 7.44 (7.35-7.45) 07/03/22 05:48 ABG pCO2 51 mmHg (35-46) H 07/03/22 05:48 ABG pO2 59 mmHg (80-95) L 07/03/22 05:48 ABG HCO3 35 mmol/L (19-24) H 07/03/22 05:48 ABG O2 Saturation 93.8 % (90-95) 07/03/22 05:48 ABG Base Excess 8.8 mEq/L (-9-1.8) H 07/03/22 05:48 Caesar Test Pos (Pos) 07/03/22 05:48 Oxygen Given RA 07/03/22 05:48 Sodium 142 mmol/L (136-145) 07/11/22 05:48 Potassium 4.0 mmol/L (3.5-5.1) 07/11/22 05:48 Chloride 105 mmol/L (98-107) 07/11/22 05:48 Carbon Dioxide 30 mmol/L (21-32) 07/11/22 05:48 Anion Gap 7 (3-11) 07/11/22 05:48 BUN 28 mg/dl (6-23) H 07/11/22 05:48 Creatinine 1.07 mg/dl (0.6-1.4) 07/11/22 05:48 Est Cr Clr Drug Dosing 74.2 ml/min 07/11/22 05:48 Est GFR ( Amer) 81.1 ml/min 07/11/22 05:48 Est GFR (Non-Af Amer) 70.0 ml/min 07/11/22 05:48 BUN/Creatinine Ratio 26.2 (10-20) H 07/11/22 05:48 Glucose 135 mg/dl (70-99(Fasting)) H 07/11/22 05:48 Calcium 7.8 mg/dl (8.6-10.3) L 07/11/22 05:48 Phosphorus 3.5 mg/dl (2.5-4.9) 07/02/22 06:45 Magnesium 1.7 mg/dl (1.7-2.4) 07/11/22 05:48 Total Bilirubin 0.2 mg/dl (0.2-1.0) 07/04/22 06:24 AST 8 U/L (13-39) L 07/04/22 06:24 ALT 4 U/L (7-52) L 07/04/22 06:24 Alkaline Phosphatase 71 U/L (34-104) 07/04/22 06:24 Troponin I High Sens 5.9 pg/ml (0-20) 07/06/22 01:25 B-Natriuretic Peptide 530 pg/ml (0-100) H 06/30/22 20:09 Total Protein 5.5 gm/dl (6.0-8.3) L 07/04/22 06:24 Albumin 2.3 gm/dl (3.4-5.0) L 07/04/22 06:24 Globulin 3.2 gm/dl (2.5-4.0) 07/04/22 06:24 Albumin/Globulin Ratio 0.7 (0.9-2) L 07/04/22 06:24 Lipase 4 U/L (11-82) L 06/30/22 16:56 Procalcitonin 0.16 ng/ml (0-0.5) 07/02/22 06:58 TSH 19.384 uIu/ml (0.300-4.500) H 07/01/22 05:30 Free T4 0.75 ng/dl (0.61-1.60) 07/01/22 05:30 Nasal Screen MRSA (PCR) Negative (Negative) 06/30/22 23:03 Stool Occult Bld Scrn Positive (Negative) A 07/04/22 08:20 SARS-CoV-2 (PCR) POSITIVE (Negative) A* 06/30/22 19:39 Hepatitis C Ab (EIA) NON-REACTIVE (NON-REACTIVE) 07/01/22 05:30 Hep C Ab Signal/Cutoff 0.03 (<1.00) 07/01/22 05:30 Influenza Type A (PCR) Negative (Neg) 06/30/22 19:39 Influenza Type B (PCR) Negative (Neg) 06/30/22 19:39 RSV (RT-PCR) Negative (Neg) 06/30/22 19:39 SARS-CoV-2, RNA, NAAT NEGATIVE (NEGATIVE) 06/30/22 17:02 Blood Type O Positive 07/06/22 01:25 Blood Type Recheck O Positive 07/02/22 20:28 Antibody Screen NEGATIVE 07/06/22 01:25 Crossmatch See Detail 07/06/22 01:25 Impressions Chest X-Ray 06/30/22 16:35 SINGLE VIEW CHEST CLINICAL HISTORY: Atypical chest pain. FINDINGS: 2 AP, portable, upright chest radiographs are obtained. No prior studies are available for comparison at the time of dictation. The examination is degraded by portable technique and patient rotation. A right internal jugular central venous infusion port is in place. The heart appears enlarged but is partially obscured. There is pulmonary vascular congestion. There is a layering right pleural effusion which tracks to the right apex. Atelectasis/consolidation is seen throughout the right lung. A small pleural effusion is seen on the left. No pneumothorax is seen. The skeletal structures are osteopenic. The bony thorax is grossly intact. Advanced arthritic change is seen in the shoulders. IMPRESSION: 1. Cardiomegaly with evidence of congestive failure. 2. Large layering right pleural effusion which tracks to the apex. Atelectasis/consolidation is seen throughout the right lung. 3. A small pleural effusion is seen on the left ACT 112: Negative or not required by law. Electronically signed by: Shane Pena M.D. 06/30/2022 5:[address] 06/30/22 21:49 Exam(s): CT CHEST Without Contrast EXAM: CT Chest Without Intravenous Contrast CLINICAL HISTORY: Reason for exam: pleural effusion, pericardial effusion, infiltrates. TECHNIQUE: Axial computed tomography images of the chest without intravenous contrast. CTDI is 28.61 mGy and DLP is 1075.84 mGy-cm. Automated exposure control was utilized for the study. A dose lowering technique was utilized adhering to the principles of ALARA. COMPARISON: Chest x-ray from June 30, 2022 FINDINGS: Lungs: There are multiple scattered pulmonary nodules in the left lung measuring up to 9 mm suggesting metastatic neoplasm. Pleural space: There is diffuse pleural thickening throughout the right hemithorax and consolidation of the right mid to lower lung. There is interstitial infiltrate throughout the remaining right upper lung. Consider neoplasm. There is a small to moderate left pleural effusion layering 5 cm dependently mild adjacent left basilar atelectasis. No pneumothorax. Heart: The heart is mildly enlarged. There is a trace pericardial effusion. No significant coronary artery calcifications. Bones/joints: Moderate degenerative changes in both shoulders. Moderate multilevel degenerative changes are seen throughout the spine. No acute fracture or destructive bone lesion is identified. No dislocation. Soft tissues: There is diffuse anasarca over the torso. Vasculature: The thoracic aorta is mildly calcified but nondilated. This is a noncontrast study. Lymph nodes: Unremarkable. No enlarged lymph nodes. Tubes, lines and devices: There is a Port-A-Cath on the right with the line running to the superior vena cava. IMPRESSION: 1. There is diffuse pleural thickening throughout the right hemithorax and consolidation of the right mid to lower lung. There is interstitial infiltrate throughout the remaining right upper lung. Consider neoplasm. 2. There are multiple scattered pulmonary nodules in the left lung measuring up to 9 mm suggesting metastatic neoplasm. 3. There is a small to moderate left pleural effusion layering 5 cm dependently mild adjacent left basilar atelectasis. 4. Mild cardiomegaly and diffuse anasarca. Some component of CHF is suspected. Electronically signed by: Alex Jimenez MD 06/30/22 23:30 PM
[2022-07-11] MEDS: ENOXAPARIN INJ 40 MG/0.4 ML SYR SQ SCH (20:49)
[2022-07-12] MEDS: oxyCODONE HCL IR 5 MG TAB (IMMEDIATE RELEASE) PO PRN ×4 (01:21→20:55)
[2022-07-12] MEDS ORDERED: ALBUMIN 25% 12.5 GM/50 ML VIAL IV ONE (04:52)
[2022-07-12] MEDS: LEVOTHYROXINE SODIUM 100 MCG TABLET PO SCH (05:36)
[2022-07-12] MEDS: METOPROLOL TARTRATE 25 MG TAB PO SCH ×2 (05:36→20:56)
[2022-07-12] MEDS: MAGNESIUM SULFATE / D5W 1 GM/100 ML BAG IV SCH ×2 (06:17→08:44)
[2022-07-12] MEDS: ALBUT/IPRATROP 3MG/0.5MG NEB 3 ML VIAL NEB SCH ×2 (07:17→19:39)
[2022-07-12] MEDS: SODIUM CHLOR 7% 4 ML NEB NEB SCH ×2 (07:17→19:39)
[2022-07-12 08:48] LABS: Basophils # (auto) 0.03 K/uL (0-0.2); Basophils % (auto) 0.3 %; Eosinophils # (auto) 0.06 K/uL (0-0.50); Eosinophils % (auto) 0.5 %; Hematocrit (blood only) 30.3 % (42.0-52.0); Immature Granulocytes # (auto) 0.13 K/uL (0.01-0.20); Immature Granulocytes % (auto) 1.1 %; Lymphocytes # (auto) 1.42 K/uL (1.2-3.4); Lymphocytes % (auto) 12.1 %; Mean Corpuscular Hemoglobin 24.6 pg (25.0-34.0); Mean Corpuscular Hgb Conc 29.7 g/dL (32.0-36.0); Mean Corpuscular Volume 82.8 fL (80.0-100.0); Monocytes # (auto) 1.13 K/uL (0.11-0.59); Monocytes % (auto) 9.6 %; Neutrophils # (auto) 8.94 K/uL (1.40-6.50); Neutrophils % (auto) 76.4 %; Platelet Count 268 K/uL (130-400); RDW Coefficient of Variation 21.4 % (11.5-14.5); RDW Standard Deviation 63.5 fL (36.4-46.3); Red Blood Count 3.66 M/uL (4.70-6.10); White Blood Count 11.71 K/ul (4.8-10.8)
[2022-07-12] MEDS: TORSEMIDE 10 MG TAB PO SCH (08:48)
[2022-07-12] MEDS: TAMSULOSIN HCL 0.4 MG CAP PO SCH (08:48)
[2022-07-12] MEDS: guaiFENesin 600 MG TABCR PO SCH ×2 (08:49→20:56)
[2022-07-12] MEDS: CYANOCOBALAMIN (B-12) 500 MCG TABLET PO SCH (08:49)
[2022-07-12] MEDS: LACTULOSE SYRUP 10 GM/15 ML BTL 960 ML PO SCH ×2 (08:51→21:15)
[2022-07-12] MEDS: MULTIVITAMIN TAB PO SCH (08:51)
[2022-07-12] MEDS: PANTOprazole 40 MG TAB PO SCH ×2 (08:51→20:56)
[2022-07-12] MEDS: dexAMETHasone 6 MG in SYRINGE 0 ML IV SCH (08:52)
[2022-07-12] MEDS: ADVANCED PROBIOTIC 1250 MG CAPSULE PO SCH (08:52)
[2022-07-12] MEDS: CHOLECALCIFEROL 5,000 UNITS 125 MCG TAB PO SCH (08:52)
[2022-07-12] MEDS: FOLIC ACID 1 MG TAB PO SCH (08:52)
[2022-07-12 09:11] LABS: Rouleaux 1+
[2022-07-12 09:13] LABS: Calcium 7.8 mg/dl (8.6-10.3); Magnesium 1.8 mg/dl (1.7-2.4); Potassium 4.6 mmol/L (3.5-5.1)
[2022-07-12 09:19] LABS: BUN Creatinine Ratio 22.2 (10-20); Creatinine Clr Calc Pharmacy 67.9 ml/min; Est GFR (African American) 72.8 ml/min; Est GFR (Non-African American) 62.8 ml/min
--- NOTE | 2022-07-12 12:54 | Hospitalist Progress Note ---
Date of Service July 12, 2022 Assessment & Plan (1) Acute hypercapnic respiratory failure: Plan: Acute hypercapnic respiratory failure H/O Metastatic mesothelioma COPD Right pleural effusion likely malignant Failure to thrive Pericardial effusion, diastolic heart failure likely contributing as well Recent COVID-19 infection --CT Chest:There is diffuse pleural thickening throughout the right hemithorax and consolidation of the right mid to lower lung. There is interstitial infiltrate throughout the remaining right upper lung. Consider neoplasm. There are multiple scattered pulmonary nodules in the left lung measuring up to 9 mm suggesting metastatic neoplasm. There is a small to moderate left pleural effusion layering 5 cm dependently mild adjacent left basilar atelectasis. Mild cardiomegaly and diffuse anasarca. Some component of CHF is suspected. -Procalcitonin 0.16 Follows with pulmonology and oncology at [place] Continue dexamethasone to complete 10-day course Continue pulmonary hygiene, hypertonic saline Nebs Avoid narcotics as able Continue IV Zosyn, doxycycline>> completed the antibiotic course Very poor prognosis Discussion was done with patient, patient's daughter at bedside on . Patient preference is to go back home and live with his daughter and grandson. Patient to be discharged home tomorrow on hospice care. Pericardial effusion NSVT -ECHO: Mild concentric LVH. No regional wall motion abnormalities. EF greater than 70%. Right ventricle is normal in size and function. Grade 1 diastolic dysfunction. No significant valvular disease. Aortic root is moderately enlarged with diameter 4.7 cm. Small circumferential pericardial effusion is present. There is circumferential echodensity in the pericardial space consistent with fibrinous strands or coagulum. Moderate size left pleural effusion. -Was started on amiodarone--discontinued given underlying lung disease, patient's preference/declined Appreciate cardiology input Tolerating current dose of metoprolol; lower burden of NSVT since beta-jolene placement. 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 torsemide (4) Anemia: Plan: Positive FOBT H/O hemorrhoids S/P 2 unit PRBCs Monitor H&H (5) Chronic diastolic heart failure: Plan: On IV Lasix>> p.o. torsemide Monitor volume status (6) COPD (chronic obstructive pulmonary disease): (7) COVID-19 virus infection: Plan: Noted to have COVID-19 virus infection with history of documented coronavirus on 05/21/2022 No acute issues Saturating well on room air Chronic cancer pain Hypothyroidism Continue levothyroxine Pain control as needed DVT Px: Lovenox SQ--refused on multiple occasions SCDs for now CODE STATUS Full code for now Home with hospice; likely tomorrow. Discussed with case management. Prescription given to case management. Time spent evaluating patient, direct bedside care, chart review, placing orders, interpretation of diagnostic studies, discussion with consultants, patient, and family members, as well as other required patient management activities is 60 minutes. Please note the above document was generated using voice recognition software. It may contain grammatical, syntax or spelling errors. Any formal questions or concerns about the content, text or information contained within the body of this dictation should be directly addressed to the provider for clarification Admission and Anticipated Discharge Date Admission Date: June 30, 2022 Subjective Patient seen and examined at bedside. He is sitting up; not in distress. Telemetry shows some episodes of NSVT. Review of Systems Review of Systems: All systems reviewed & are unremarkable except as noted in Subjective Physical Exam Physical Exam: Physical Exam: Vitals signs as noted above General Appearance:Moderately built and nourished, no apparent distress, Chronic ill appearing Head: normocephalic, Atraumatic Eyes: normal inspection, EOMI Neck: supple, Trachea midline Respiratory/Chest: Decreased breath sounds, CTA, No accessory muscle use Cardiovascular: S1, S2, No murmur Abdomen/GI:Soft, Non tender, Bowel sounds present Extremities/Musculoskeletal:normal inspection, 1+ Pedal edema Neurologic/Psych:AAOX3, grossly no focal neurological deficits Skin: normal color, warm Results & Data Results & Data Vital Signs (Past 12 Hours) Vital Signs Temp Pulse Resp BP BP Pulse Ox O2 Del Method 07/12/22 07:52 36.6 C 77 11 L 109/88 100 Room Air 07/12/22 07:18 79 18 92 Room Air 07/12/22 05:31 84 14 112/91 94 Room Air 07/12/22 03:03 36.8 C 86 20 102/77 92 Room Air Laboratory Results Laboratory Results WBC 11.71 K/ul (4.8-10.8) H 07/12/22 08:07 RBC 3.66 M/uL (4.70-6.10) L 07/12/22 08:07 Hgb 9.0 g/dl (14.0-18.0) L 07/12/22 08:07 Hct 30.3 % (42.0-52.0) L 07/12/22 08:07 MCV 82.8 fL (80.0-100.0) 07/12/22 08:07 MCH 24.6 pg (25.0-34.0) L 07/12/22 08:07 MCHC 29.7 g/dL (32.0-36.0) L 07/12/22 08:07 RDW Std Deviation 63.5 fL (36.4-46.3) H 07/12/22 08:07 RDW Coeff of Julee 21.4 % (11.5-14.5) H 07/12/22 08:07 Plt Count 268 K/uL (130-400) 07/12/22 08:07 MPV 10.0 fL (9.4-12.4) 07/12/22 08:07 Immature Gran % (Auto) 1.1 % 07/12/22 08:07 Neut % (Auto) 76.4 % 07/12/22 08:07 Lymph % (Auto) 12.1 % 07/12/22 08:07 [place] % (Auto) 9.6 % 07/12/22 08:07 Eos % (Auto) 0.5 % 07/12/22 08:07 Baso % (Auto) 0.3 % 07/12/22 08:07 Neut # (Auto) 8.94 K/uL (1.40-6.50) H 07/12/22 08:07 Lymph # (Auto) 1.42 K/uL (1.2-3.4) 07/12/22 08:07 [place] # (Auto) 1.13 K/uL (0.11-0.59) H 07/12/22 08:07 Eos # (Auto) 0.06 K/uL (0-0.50) 07/12/22 08:07 Baso # (Auto) 0.03 K/uL (0-0.2) 07/12/22 08:07 Immature Gran # (Auto) 0.13 K/uL (0.01-0.20) 07/12/22 08:07 RBC Morphology Unremarkable 07/02/22 06:45 Polychromasia 1+ 07/06/22 01:25 Hypochromasia Present 07/01/22 05:30 Rouleaux 1+ 07/12/22 08:07 APTT 29.1 Seconds (21.0-31.0) 07/06/22 01:25 PTT Ratio 1.0 07/06/22 01:25 ABG pH 7.44 (7.35-7.45) 07/03/22 05:48 ABG pCO2 51 mmHg (35-46) H 07/03/22 05:48 ABG pO2 59 mmHg (80-95) L 07/03/22 05:48 ABG HCO3 35 mmol/L (19-24) H 07/03/22 05:48 ABG O2 Saturation 93.8 % (90-95) 07/03/22 05:48 ABG Base Excess 8.8 mEq/L (-9-1.8) H 07/03/22 05:48 Caesar Test Pos (Pos) 07/03/22 05:48 Oxygen Given RA 07/03/22 05:48 Sodium 142 mmol/L (136-145) 07/12/22 08:07 Potassium 4.6 mmol/L (3.5-5.1) 07/12/22 08:07 Chloride 104 mmol/L (98-107) 07/12/22 08:07 Carbon Dioxide 32 mmol/L (21-32) 07/12/22 08:07 Anion Gap 6 (3-11) 07/12/22 08:07 BUN 26 mg/dl (6-23) H 07/12/22 08:07 Creatinine 1.17 mg/dl (0.6-1.4) 07/12/22 08:07 Est Cr Clr Drug Dosing 67.9 ml/min 07/12/22 08:07 Est GFR ( Amer) 72.8 ml/min 07/12/22 08:07 Est GFR (Non-Af Amer) 62.8 ml/min 07/12/22 08:07 BUN/Creatinine Ratio 22.2 (10-20) H 07/12/22 08:07 Glucose 85 mg/dl (70-99(Fasting)) 07/12/22 08:07 Lactate 1.9 mmol/L (0.4-2.0) 07/12/22 08:07 Calcium 7.8 mg/dl (8.6-10.3) L 07/12/22 08:07 Phosphorus 3.5 mg/dl (2.5-4.9) 07/02/22 06:45 Magnesium 1.8 mg/dl (1.7-2.4) 07/12/22 08:07 Total Bilirubin 0.2 mg/dl (0.2-1.0) 07/04/22 06:24 AST 8 U/L (13-39) L 07/04/22 06:24 ALT 4 U/L (7-52) L 07/04/22 06:24 Alkaline Phosphatase 71 U/L (34-104) 07/04/22 06:24 Troponin I High Sens 5.9 pg/ml (0-20) 07/06/22 01:25 B-Natriuretic Peptide 530 pg/ml (0-100) H 06/30/22 20:09 Total Protein 5.5 gm/dl (6.0-8.3) L 07/04/22 06:24 Albumin 2.3 gm/dl (3.4-5.0) L 07/04/22 06:24 Globulin 3.2 gm/dl (2.5-4.0) 07/04/22 06:24 Albumin/Globulin Ratio 0.7 (0.9-2) L 07/04/22 06:24 Lipase 4 U/L (11-82) L 06/30/22 16:56 Procalcitonin 0.16 ng/ml (0-0.5) 07/02/22 06:58 TSH 19.384 uIu/ml (0.300-4.500) H 07/01/22 05:30 Free T4 0.75 ng/dl (0.61-1.60) 07/01/22 05:30 Nasal Screen MRSA (PCR) Negative (Negative) 06/30/22 23:03 Stool Occult Bld Scrn Positive (Negative) A 07/04/22 08:20 SARS-CoV-2 (PCR) POSITIVE (Negative) A* 06/30/22 19:39 Hepatitis C Ab (EIA) NON-REACTIVE (NON-REACTIVE) 07/01/22 05:30 Hep C Ab Signal/Cutoff 0.03 (<1.00) 07/01/22 05:30 Influenza Type A (PCR) Negative (Neg) 06/30/22 19:39 Influenza Type B (PCR) Negative (Neg) 06/30/22 19:39 RSV (RT-PCR) Negative (Neg) 06/30/22 19:39 SARS-CoV-2, RNA, NAAT NEGATIVE (NEGATIVE) 06/30/22 17:02 Blood Type O Positive 07/06/22 01:25 Blood Type Recheck O Positive 07/02/22 20:28 Antibody Screen NEGATIVE 07/06/22 01:25 Crossmatch See Detail 07/06/22 01:25 Impressions Chest X-Ray 06/30/22 16:35 SINGLE VIEW CHEST CLINICAL HISTORY: Atypical chest pain. FINDINGS: 2 AP, portable, upright chest radiographs are obtained. No prior studies are available for comparison at the time of dictation. The examination is degraded by portable technique and patient rotation. A right internal jugular central venous infusion port is in place. The heart appears enlarged but is partially obscured. There is pulmonary vascular congestion. There is a layering right pleural effusion which tracks to the right apex. Atelectasis/consolidation is seen throughout the right lung. A small pleural effusion is seen on the left. No pneumothorax is seen. The skeletal structures are osteopenic. The bony thorax is grossly intact. Advanced arthritic change is seen in the shoulders. IMPRESSION: 1. Cardiomegaly with evidence of congestive failure. 2. Large layering right pleural effusion which tracks to the apex. Atelectasis/consolidation is seen throughout the right lung. 3. A small pleural effusion is seen on the left ACT 112: Negative or not required by law. Electronically signed by: Shane Pena M.D. 06/30/2022 5:[address] 06/30/22 21:49 Exam(s): CT CHEST Without Contrast EXAM: CT Chest Without Intravenous Contrast CLINICAL HISTORY: Reason for exam: pleural effusion, pericardial effusion, infiltrates. TECHNIQUE: Axial computed tomography images of the chest without intravenous contrast. CTDI is 28.61 mGy and DLP is 1075.84 mGy-cm. Automated exposure control was utilized for the study. A dose lowering technique was utilized adhering to the principles of ALARA. COMPARISON: Chest x-ray from June 30, 2022 FINDINGS: Lungs: There are multiple scattered pulmonary nodules in the left lung measuring up to 9 mm suggesting metastatic neoplasm. Pleural space: There is diffuse pleural thickening throughout the right hemithorax and consolidation of the right mid to lower lung. There is interstitial infiltrate throughout the remaining right upper lung. Consider neoplasm. There is a small to moderate left pleural effusion layering 5 cm dependently mild adjacent left basilar atelectasis. No pneumothorax. Heart: The heart is mildly enlarged. There is a trace pericardial effusion. No significant coronary artery calcifications. Bones/joints: Moderate degenerative changes in both shoulders. Moderate multilevel degenerative changes are seen throughout the spine. No acute fracture or destructive bone lesion is identified. No dislocation. Soft tissues: There is diffuse anasarca over the torso. Vasculature: The thoracic aorta is mildly calcified but nondilated. This is a noncontrast study. Lymph nodes: Unremarkable. No enlarged lymph nodes. Tubes, lines and devices: There is a Port-A-Cath on the right with the line running to the superior vena cava. IMPRESSION: 1. There is diffuse pleural thickening throughout the right hemithorax and consolidation of the right mid to lower lung. There is interstitial infiltrate throughout the remaining right upper lung. Consider neoplasm. 2. There are multiple scattered pulmonary nodules in the left lung measuring up to 9 mm suggesting metastatic neoplasm. 3. There is a small to moderate left pleural effusion layering 5 cm dependently mild adjacent left basilar atelectasis. 4. Mild cardiomegaly and diffuse anasarca. Some component of CHF is suspected. Electronically signed by: Alex Jimenez MD 06/30/22 23:30 PM
[2022-07-12] MEDS: MIRTAZAPINE TAB 15 MG TAB PO SCH (20:56)
[2022-07-12] MEDS: ENOXAPARIN INJ 40 MG/0.4 ML SYR SQ SCH (21:15)
[2022-07-13] MEDS: oxyCODONE HCL IR 5 MG TAB (IMMEDIATE RELEASE) PO PRN (00:32)
[2022-07-13] MEDS ORDERED: oxyCODONE HCL IR 5 MG TAB (IMMEDIATE RELEASE) PO PRN (01:43)
[2022-07-13] MEDS ORDERED: oxyCODONE HCL IR 5 MG TAB (IMMEDIATE RELEASE) PO STA (01:43)
[2022-07-13] MEDS: LEVOTHYROXINE SODIUM 100 MCG TABLET PO SCH (06:28)
[2022-07-13] MEDS: SODIUM CHLOR 7% 4 ML NEB NEB SCH (07:16)
[2022-07-13] MEDS: ALBUT/IPRATROP 3MG/0.5MG NEB 3 ML VIAL NEB SCH (07:17)
[2022-07-13] MEDS: LACTULOSE SYRUP 10 GM/15 ML BTL 960 ML PO SCH (08:48)
[2022-07-13] MEDS: FOLIC ACID 1 MG TAB PO SCH (08:49)
[2022-07-13] MEDS: CHOLECALCIFEROL 5,000 UNITS 125 MCG TAB PO SCH (08:49)
[2022-07-13] MEDS: CYANOCOBALAMIN (B-12) 500 MCG TABLET PO SCH (08:49)
[2022-07-13] MEDS: TAMSULOSIN HCL 0.4 MG CAP PO SCH (08:49)
[2022-07-13] MEDS: TORSEMIDE 10 MG TAB PO SCH (08:49)
[2022-07-13] MEDS: guaiFENesin 600 MG TABCR PO SCH (08:50)
[2022-07-13] MEDS: METOPROLOL TARTRATE 25 MG TAB PO SCH (08:50)
[2022-07-13] MEDS: MULTIVITAMIN TAB PO SCH (08:51)
[2022-07-13] MEDS: PANTOprazole 40 MG TAB PO SCH (08:51)
[2022-07-13] MEDS: ADVANCED PROBIOTIC 1250 MG CAPSULE PO SCH (08:52)
--- NOTE | 2022-07-13 12:59 | Discharge Summary ---
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 The patient used to live with the daughter. The patient's daughter says that the patient appeared to have malignant mesothelioma for last 2 years, but in January it was diagnosed and has spread to liver, and in April, he had one immunotherapy, but in May, he had COVID, so currently immunotherapy on hold. History of COPD, but not on home oxygen. It looks like he presented at [facility] on 06/06/2022 with a fall when he struck his head on the right side and on presentation was found to be hypotensive with systolic blood pressure in 70s and tachycardic with heart rate in the 110s. Corrigan-imaging studies were negative for traumatic injuries, but showed increased right-sided pleural effusion and pericardial effusion. At that time, his BNP was 1900, potassium was 5.6, creatinine was 2.2, lactate was 2.7, TSH 49, hemoglobin 7.4, procalcitonin 0.33. He was given about 2.2 liters of fluids, vancomycin, and Zosyn and started on norepinephrine and transferred to [facility] for continuation of care in [place]. He was in , mixed hypovolemic- cardiogenic shock. Underwent pericardiocentesis by cardiology on 06/07/2022. Pericardial drain was removed on 06/12/2022 after ensuring there was no reaccumulation. The pericardial effusion was thought due to malignancy, history of metastatic mesothelioma. The patient also had LEN, was thought to be postobstructive and Bailey catheter was placed. The patient was started on Flomax, was supposed to follow up with urology for a voiding trial. Palliative care saw the patient, seen by oncology and there is plan for outpatient followup for continuation of treatment of malignant mesothelioma. Palliative care saw, the patient goals of care were discussed and the patient wants to be full code and to be treated.His thyroid level was 49 and free T4 was 0.6. At discharge, thyroid dose was doubled to 150, but looks like at [facility] he was getting 100 mcg. The patient was transferred to [facility], looks like on 06/19/2022. As per daughter, his pain was not well controlled there and she was not happy with the care and she was wanting to go to a different usp, but also the patient was having lot of cough and having some congestion and short of breath. He was supposed to use oxygen only during nighttime, but the patient is not using currently. In the ER, chest x-ray was done, which showed large right pleural effusion and possible consolidation and was given a dose of Lasix and also the nebs. Currently, saturating okay on 6 liters. Blood pressure somewhat soft, resting comfortably. Denies any chest pain. Denies any headache. No neck pain. No nausea or vomiting. Appetite is down. No difficulty swallowing, eating regular food. No blurred visions, no earache, no runny nose. Has a lot of cough, but not bringing much sputum. No fevers. Denies abdominal pain at this time. Somewhat constipated and sometimes the stools are dark, but denies any blood in the stools. Normal micturitions. Ambulating with a walker, but not much. Admission Exam Per Admitting Provider GENERAL: The patient is moderately built, , not in acute distress. VITAL SIGNS: Temperature 36.6, pulse 88, respiratory rate 15, blood pressure 96/70, oxygen 100% on 6 liters. HEENT: Pupils equal, round and reactive to light. Oral mucosa moist. NECK: No JVD, no neck masses. CARDIOVASCULAR: S1 and S2 heard. Regular rate and rhythm. No murmur, no gallop. RESPIRATORY SYSTEM: Normal AP diameter. No accessory muscle use. Mild bibasi lar crackles. No wheezing. ABDOMEN: Soft, bowel sounds present, nontender, no distention. CENTRAL NERVOUS SYSTEM: Alert and oriented. Speech is clear. No facial droop. Obeys simple commands. Insight is okay. Moves extremities. EXTREMITIES: Bilateral lower extremity pedal edema present, no erythema seen. SKIN: Dark pigmentations all over the body. Principal Diagnosis Acute hypercapnic respiratory failure H/O Metastatic mesothelioma COPD Right pleural effusion likely malignant Failure to thrive Pericardial effusion, diastolic heart failure likely contributing as well Recent COVID-19 infection Discharge Exam Physical Exam: Vitals signs as noted above General Appearance:Moderately built and nourished, no apparent distress, Chronic ill appearing Head: normocephalic, Atraumatic Eyes: normal inspection, EOMI Neck: supple, Trachea midline Respiratory/Chest: Decreased breath sounds, CTA, No accessory muscle use Cardiovascular: S1, S2, No murmur Abdomen/GI:Soft, Non tender, Bowel sounds present Extremities/Musculoskeletal:normal inspection, 1+ Pedal edema Neurologic/Psych:AAOX3, grossly no focal neurological deficits Skin: normal color, warm Discharge Data Allergies Allergy/AdvReac Type Severity Reaction Status Date / Time No Known Allergies Allergy Unverified 06/30/22 19:15 Consultations 06/30/22 19:19 ED Decision to Admit Stat 07/01/22 08:00 Consult Cardiology Routine Consult Pulmonology Routine 07/04/22 11:43 Consult Palliative Care Routine 07/04/22 11:57 Consult Psychiatry Routine Ordered Studies 06/30/22 21:49 CT chest diagnostic wo con Urgent Hospital Course (1) Acute hypercapnic respiratory failure: Acute hypercapnic respiratory failure H/O Metastatic mesothelioma COPD Right pleural effusion likely malignant Failure to thrive Pericardial effusion, diastolic heart failure likely contributing as well Recent COVID-19 infection --CT Chest:There is diffuse pleural thickening throughout the right hemithorax and consolidation of the right mid to lower lung. There is interstitial infiltrate throughout the remaining right upper lung. Consider neoplasm. There are multiple scattered pulmonary nodules in the left lung measuring up to 9 mm suggesting metastatic neoplasm. There is a small to moderate left pleural effusion layering 5 cm dependently mild adjacent left basilar atelectasis. Mild cardiomegaly and diffuse anasarca. Some component of CHF is suspected. -Procalcitonin 0.16 Treated with 10-day course of dexamethasone, pulmonary hygiene, antibiotic and hypertonic saline nebs. At discharge patient was on 2 L of nasal cannula. Discussion was done with patient, patient's daughter at bedside on . Patient preference is to go back home and live with his daughter and grandson. Patient discharged home on hospice care. Pericardial effusion NSVT -ECHO: Mild concentric LVH. No regional wall motion abnormalities. EF greater than 70%. Right ventricle is normal in size and function. Grade 1 diastolic dysfunction. No significant valvular disease. Aortic root is moderately enlarged with diameter 4.7 cm. Small circumferential pericardial effusion is present. There is circumferential echodensity in the pericardial space consistent with fibrinous strands or coagulum. Moderate size left pleural effusion. 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 torsemide on discharge (4) Anemia: Positive FOBT H/O hemorrhoids S/P 2 unit PRBCs Hemoglobin stable at discharge. (5) Chronic diastolic heart failure: On IV Lasix>> p.o. torsemide on discharge (6) COPD (chronic obstructive pulmonary disease): (7) COVID-19 virus infection: Noted to have COVID-19 virus infection with history of documented coronavirus on 05/21/2022 No acute issues Saturating well on room air Please note the above document was generated using voice recognition software. It may contain grammatical, syntax or spelling errors. Any formal questions or concerns about the content, text or information contained within the body of this dictation should be directly addressed to the provider for clarification Total Time Total Time Spent Total Time Spent (In Minutes): 45 Discharge Plan Discharge Items Patient Disposition: Hospice - Home Reason For Visit: ILLNESS Discharge Diagnosis: Acute hypercapnic respiratory failure H/O Metastatic mesothelioma COPD Right pleural effusion likely malignant Failure to thrive Pericardial effusion, diastolic heart failure likely contributing as well Recent COVID-19 infection Activity: Resume your previous activity Non-emergency contact: Primary Care Provider Call non-emergency contact if: you have any medication questions Follow-up/Referrals: Sandi Jon [Primary Care Provider] - Diet: Regular Addtl Attending Provider Instructions: You were admitted to the hospital with low oxygen level. There are multiple factors contributing to it which includes cancer, COPD and recent COVID-19 infection. You are treated with IV antibiotic and steroids while you are in the hospital. Please take your medication as prescribed. Pending Studies at Discharge: No Stand-Alone Forms: [facility] Medications and DC Order Prescriptions: New torsemide 10 mg Tablet 10 mg PO QAM Qty: 30 0RF tamsulosin 0.4 mg Capsule 0.4 mg PO QAM Qty: 30 0RF pantoprazole 40 mg Tablet,Delayed Release (Dr/Ec) 40 mg PO BID Qty: 30 0RF nitroglycerin [Nitrostat] 0.4 mg Tablet, Sublingual 0.4 mg sublingual UD PRN (Reason: chest pain) Qty: 30 0RF mirtazapine 15 mg Tablet 15 mg PO HS Qty: 30 0RF albuterol sulfate [Ventolin HFA] 90 mcg/actuation Hfa Aerosol Inhaler 2 puff inhalation 6XD PRN (Reason: shortness of breath or wheezing) Qty: 8.5 0RF oxycodone 5 mg Tablet 5 - 10 mg PO QID PRN (Reason: pain) Qty: 20 0RF metoprolol tartrate 25 mg Tablet 12.5 mg PO BID Qty: 30 0RF lactulose 20 gram/30 mL Solution 10 g PO BID Qty: 1200 0RF Continued oxycodone 10 mg Tablet 10 mg PO Q4H PRN (Reason: Pain) multivitamin Tablet 1 tab PO QAM Qty: 30 0RF sennosides 8.6 mg Tablet 8.6 mg PO HS Qty: 30 0RF sennosides-docusate sodium [Senna with Docusate Sodium] 8.6-50 mg Tablet 1 tab PO QAM Qty: 30 0RF cyanocobalamin (vitamin B-12) 1,000 mcg Tablet 1,000 mcg PO QAM Qty: 30 0RF ondansetron 8 mg Tablet,Disintegrating 8 mg PO Q8H PRN (Reason: Nausea) Qty: 30 0RF levothyroxine 100 mcg Tablet 100 mcg PO DAILYBB Qty: 30 0RF folic acid 1 mg tablet 1 mg PO QAM Qty: 30 0RF polyethylene glycol 3350 17 gram/dose Powder 17 g PO DAILY PRN (Reason: Constipation) Qty: 30 0RF cholecalciferol (vitamin D3) 125 mcg (5,000 unit) Capsule 125 mcg PO QAM Qty: 30 0RF guaifenesin 600 mg Tablet Extended Release 12hr 600 mg PO Q12H Qty: 30 0RF Discontinued mirtazapine 15 mg Tablet 15 mg PO HS tamsulosin 0.4 mg Capsule 0.4 mg PO QAM torsemide 10 mg Tablet 10 mg PO QAM lactulose 10 gram/15 mL Solution 15 ml PO BID naloxone 4 mg/actuation [place],Non-Aerosol 1 spray INTRANASAL .UD PRN (Reason: Opioid Overdose) albuterol sulfate [Ventolin HFA] 90 mcg/actuation Hfa Aerosol Inhaler 2 puff INHALATION 6XD PRN (Reason: Shortness Of Breath Or Wheezing) Discharge Orders: Discharge Order (Routine); Ordered 07/13/22 Ordered By: Heri Britt Admission Data Admit Date/Time: 06/30/22 20:29 Attending Provider: Heri Britt Admit Provider: Gordy Dunbar Primary Care Provider: Sandi Jon Other Providers: Gordy Dunbar ; Alvarado Ocampo ; Meño Gayle ; Emelia Horta ; Fior Butterfield ; Lashae Connell ; Jack Irvin ; Shaan Traylor [place] ; [place] Other Interventions: Discharge Summary Assessment (RN) Last Done: 07/13/22 12:42
== END 2022-07-13 14:40 | disposition hospice, home (50) | DRG 180 ==
LOC: ED 16:17 → SUATTDRO 20:29 → 2S 20:29 → 2E 07-08 17:12